=== PATIENT | female | born 1960 | race Caucasian/White ===

== ENCOUNTER → 2017-09-23 11:17 | Outpatient (CLI) | payer OTHER, SELFPAY ==
[2017-09-26 14:04] LABS: Rubeola Measles IgG < 25.00 AU/mL (< 25.00)
== END ==
PROVIDERS: PCP Family Medicine; Visit Provider Family Medicine
DX: Z01.84 Encounter for antibody response examination (principal)
CPT/HCPCS: 36415; 86735; 86762; 86765

== ENCOUNTER → 2018-01-25 10:47 | Outpatient (CLI) | payer OTHER, SELFPAY ==
--- NOTE | 2018-01-25 | DI.MG.S_ITS ---
BILATERAL DIGITAL SCREENING MAMMOGRAM 3D/2D WITH CAD: 01/25/2018 CLINICAL: Routine screening. Family history of breast cancer. Comparison is made to exams dated: 07/30/2012 mammogram, 08/26/2010 mammogram, and 07/08/2008 mammogram - [facility]. There are scattered fibroglandular elements in both breasts. Current study was also evaluated with a Computer Aided Detection (CAD) system. No significant masses, calcifications, or other findings are seen in either breast. There has been no significant interval change. IMPRESSION: NEGATIVE There is no mammographic evidence of malignancy. A 1 year screening mammogram is recommended. This exam was interpreted at Station ID: [id number]. NOTE: For mammograms, a report in lay terms will be sent to the patient. Approximately 15% of breast malignancies will not be visualized mammographically. In the management of a palpable breast mass, a negative mammogram must not discourage biopsy of a clinically suspicious lesion. Electronically Signed By: Rigoberto cespedes/silvano:01/26/2018 11:45:51 letter sent: Normal Exam ACR BI-RADS Category 1: Negative 3341F
== END ==
PROVIDERS: PCP Family Medicine; Visit Provider Family Medicine
DX: Z12.31 Encounter for screening mammogram for malignant neoplasm of breast (principal); Z80.3 Family history of malignant neoplasm of breast
CPT/HCPCS: 77063; 77067

== ENCOUNTER → 2018-05-08 08:21 | Outpatient (CLI) | payer OTHER, SELFPAY ==
[2018-05-08 09:40] LABS: Cholesterol 233 mg/dL (140-199); HDL Cholesterol 59 mg/dL (40-60); LDL Cholesterol Calculated 156 mg/dL (<100); Triglycerides 91 mg/dL (35-150)
== END ==
PROVIDERS: PCP Family Medicine; Visit Provider Family Medicine
DX: Z86.39 Personal history of other endocrine, nutritional and metabolic disease (principal)
CPT/HCPCS: 36415; 80061

== ENCOUNTER → 2018-09-12 11:24 | Outpatient (CLI) | payer OTHER, SELFPAY ==
--- NOTE | 2018-09-12 11:25 | DI.RAD.S_ITS ---
PROCEDURE: XR LUMBAR SPINE 2-3V INDICATIONS: Low back pain TECHNIQUE: 3 views of the lumbar spine were acquired. COMPARISON: None. FINDINGS: Bones: 5 [id number] vertebrae are present. There is normal bony alignment. No vertebral body compression fractures. No suspicious bony lesions. Soft tissues: Overlying bowel gas pattern is normal. No suspicious soft tissue calcifications. 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 No fracture or subluxation is found. Dictated by: John Cadena M.D. on 09/12/2018 at 12:15 Approved by: John Cadena M.D. on 09/12/2018 at 12:15
== END ==
PROVIDERS: PCP Family Medicine; Visit Provider Family Medicine
DX: M54.5 Low back pain (principal); M51.17 Intervertebral disc disorders with radiculopathy, lumbosacral region; M47.27 Other spondylosis with radiculopathy, lumbosacral region
CPT/HCPCS: 72100

== ENCOUNTER → 2019-02-28 17:57 | Outpatient (CLI) | payer OTHER, SELFPAY ==
--- NOTE | 2019-02-28 | DI.MG.S_ITS ---
BILATERAL DIGITAL SCREENING MAMMOGRAM 3D/2D WITH CAD: 02/28/2019 CLINICAL: Routine screening. Family history of breast cancer. Comparison is made to exams dated: 01/25/2018 mammogram - [facility] and 07/30/2012 mammogram - [facility]. There are scattered fibroglandular elements in both breasts. Current study was also evaluated with a Computer Aided Detection (CAD) system. No significant masses, calcifications, or other findings are seen in either breast. There has been no significant interval change. IMPRESSION: NEGATIVE There is no mammographic evidence of malignancy. A 1 year screening mammogram is recommended. This exam was interpreted at Station ID: [id number]. NOTE: For mammograms, a report in lay terms will be sent to the patient. Approximately 15% of breast malignancies will not be visualized mammographically. In the management of a palpable breast mass, a negative mammogram must not discourage biopsy of a clinically suspicious lesion. Electronically Signed By: Wei Camacho M.D. [facility]/silvano:02/28/2019 19:15:02 letter sent: Normal Exam ACR BI-RADS Category 1: Negative [id number]
== END ==
PROVIDERS: PCP Family Medicine; Visit Provider Family Medicine
DX: Z12.31 Encounter for screening mammogram for malignant neoplasm of breast (principal); Z80.3 Family history of malignant neoplasm of breast
CPT/HCPCS: 77063; 77067

== ENCOUNTER 2019-04-11 17:30 | Outpatient (RCR) | payer OTHER, SELFPAY ==
--- NOTE | 2019-03-20 19:20 | PT.OIE ---
Current Diagnoses Other muscle spasm (03/20/19) Pain in right hand (03/20/19) Past Medical History (Last Reviewed 01/24/19 @ 13:40 by BLAKE Craig) Ankle pain (Resolved 2009) Anxiety (Chronic ~2009) Chicken pox (Resolved 1968) Distal radius fracture, left (Resolved 2016) Migraines (Chronic 1985) Pure hypercholesterolemia (Chronic) Past Surgical History (Last Reviewed 01/24/19 @ 13:40 by BLAKE Craig) History of ankle surgery (Resolved ~01/2010) History of endometrial ablation (Resolved 2006) History of orthopedic surgery (Resolved 2016) Visit Care Team Role Provider Type Olivia Borjas MD Attending Provider Physician Family Provider Primary Care Provider Referring Provider Specialty: Family Practice Address: [address] [place] [address], [facility] Email: [email or web address] Physical Therapy Initial Evaluation PT-OP-A Visit Information Start: 03/20/19 18:35 Freq: Status: Active Protocol: Document 03/20/19 17:35 HH (Rec: 03/20/19 19:18 [email or web address]) Out-Patient Physical Therapy Visit Information Visit Information Visit Type Initial Evaluation Visit Start Time 17:35 Visit Stop Time 18:20 Total Visit Minutes 45 Visit Number 1/60 Number of OFFSHORE WIND OPERATIONS MANAGER Visits 0 Evaluation Information Evaluation Date 03/20/19 PT-OP-B Current Condition Start: 03/20/19 18:35 Freq: Status: Active Protocol: Document 03/20/19 17:35 HH (Rec: 03/20/19 19:18 [email or web address]) Current Condition History of Current Condition Onset Date Mid January, Current Complaints R neck pain, difficulty with rotation, shooting pain at R hand History of Current Condition Pt is a 58 yo female presented to clinic with new onset of R neck pain since January,. She reports she developed sharp pain on the R side of the neck while working but does not know why it started. Pt then had difficulty turning her head immediately and she had to go walk in clinic the next day who was prescribed with muscle relaxant Cyclobenzaprine. Pt stated she is currently 80% better but still has pain during R head turn and sidebend to left, along with tension headache on the right side. She also has shooting pain at distal ulnar during ulnar deviation such as opening a jar and holding her carmera. She c/o her technical adjuster strength has decreased recently as well. She did say lying flat tends to feel better. Treatment Goals Patient/Caregiver Goals 1. To be pain free for head turns and sidebending 2. 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 PT-OP-C Subjective Start: 03/20/19 18:35 Freq: Status: Active Protocol: Document 03/20/19 17:35 HH (Rec: 03/20/19 19:18 HH [email or web address]) OP-PT Subjective Patient Comments Patient Comments This neck pain is very annoying to me Patient Questionnaires Neck Disability Index NDI Score 15 Neck Disability Index Impairment 20 to 39% Impaired (Score 10- 19) Quick Dash- Upper Extremity Quick Dash UE Score 31.8 Quick Dash UE Impairment 20 to 39% Impaired (Score 20- 39) OP-PT Pain Assessment Location R distal ulnar region Intensity 4 Scale Used Numeric (1 - 10) Description Shooting Frequency Frequent Pain Aggravating Factors Changing Position,Activity, Exercise Pain Alleviating Factors Lying Supine R neck Intensity 6 Scale Used Numeric (1 - 10) Description Aching,Sharp,Shooting Frequency Frequent Pain Aggravating Factors Changing Position,Activity, Exercise Pain Alleviating Factors Lying Supine PT-OP-F Manual Assessment Start: 03/20/19 18:35 Freq: Status: Active Protocol: Document 03/20/19 17:35 HH (Rec: 03/20/19 19:18 HH [email or web address]) Manual Assessments Soft Tissue Assessment Soft Tissue Mobility Assessment Radiating pain to R shoulder with pressure to distal upper trap. PT-OP-H Neuro Start: 03/20/19 18:35 Freq: Status: Active Protocol: Document 03/20/19 17:35 HH (Rec: 03/20/19 19:18 HH [email or web address]) Deep Tendon Reflex & Clonus Assessment Deep Tendon Reflex Bilateral Brachioradialis Deep Tendon Reflex 2+ Normal Bilateral Bicep Deep Tendon Reflex 2+ Normal Bilateral Tricep Deep Tendon Reflex 2+ Normal PT-OP-J Posture/Palpation/Skin Start: 03/20/19 18:35 Freq: Status: Active Protocol: Document 03/20/19 17:35 HH (Rec: 03/20/19 19:18 HH [email or web address]) Posture Evaluation Position Standing Evaluation View Posterior Head/C-Spine Posture Rotated Left,Forward Head T-Spine Posture Fixed Scoliosis on (L) Shoulder Posture (R) Rounded,(L) Elevated PT-OP-K Range of Motion Start: 03/20/19 18:35 Freq: Status: Active Protocol: Document 03/20/19 17:35 HH (Rec: 03/20/19 19:19 [email or web address]) Cervical Spine Range of Motion Cervical Spine Active Degrees Testing Position Sitting Flexion 58 Extension 48 Rotation Left 45 Rotation Right 47 Lateral Flexion Left 30 Lateral Flexion Right 28 ROM Limitations Pain Comments Pain increased R rotation > L rotation, L sidebending > R sidebending pinching sensation with cervical extension. PT-OP-L Special Tests Start: 03/20/19 18:35 Freq: Status: Active Protocol: Document 03/20/19 17:35 HH (Rec: 03/20/19 19:18 [email or web address]) Special Tests Cervical Spine Special Tests supported shoulders with cervical rotation Test Results +VE B Comments pain reduced during rotation with B shoulders support. Traction Test Results +ve Comments seated traction Upper Limb Tension Test Test Results +ve R UE Comments for median and ulnar nerve Spurling's Test Test Results -ve B Lumbar Spine Special Tests Standing Flexion Test Results no pain Comments significant L mid thoracic scoliosis Shoulder Special Tests Adson Test Results -ve B HARPREET Test Results +VE R Comments numbness reproduced after 1 min PT-OP-M Strength Start: 03/20/19 18:35 Freq: Status: Active Protocol: Document 03/20/19 17:35 HH (Rec: 03/20/19 19:18 [email or web address]) Shoulder Strength Shoulder Manual Muscle Testing Left Flexion 4 Good Extension 4 Good Abduction (C5) 4- Good- Adduction 4 Good Right Flexion 4 Good Extension 4 Good Abduction (C5) 4- Good- Adduction 4 Good Elbow/Forearm Strength Elbow and Forearm Manual Muscle Testing Right Flexion (C6) 4+ Good+ Extension (C7) 4+ Good+ Left Flexion (C6) 4+ Good+ Extension (C7) 4+ Good+ Wrist Strength Wrist Manual Muscle Testing Right Flexion (C7) 4+ Good+ Extension (C6) 4+ Good+ Ulnar Deviation 4+ Good+ Radial Deviation 4+ Good+ Left Flexion (C7) 4+ Good+ Extension (C6) 4+ Good+ Ulnar Deviation 4+ Good+ Radial Deviation 4+ Good+ Hand Administrative Coordinator/Pinch Strength Hand Dominance Hand Dominance Right Hand Strength Left Administrative Coordinator (lbs) 12 Comments kilogram Right Administrative Coordinator (lbs) 20 Comments kilogram PT-OP-T Assessment and Plan Start: 03/20/19 18:35 Freq: Status: Active Protocol: Document 03/20/19 17:35 (Rec: 03/20/19 19:18 [email or web address]) Physical Therapy Assessment Rehab Potential Rehabilitation Potential Excellent Evaluation Complexity Number of Personal Factors/Comorbidities 1-2 Number of Body Systems Impaired 1-2 Clinical Presentation at Evaluation Stable Impairments Impairments Activity Tolerance,Balance, Functional Activities, Functional Mobility,Pain, Posture,ROM,Soft Tissue Mobility,Strength Goals Administrative Coordinator strength Impairment R technical adjuster strength = 20kG Short Term Goal (STG) Pt will improve her R technical adjuster strength to 23KG in all 3 attempts STG Duration 5 weeks Prison Goal (LTG) Pt will improve her R technical adjuster strength to 25KG in all 3 attempts for opening jars without difficulty. LTG Duration 10 weeks pain Impairment R Neck pain at 6 at all times Short Term Goal (STG) pt will be able to move her c/ s with pain no more than 4/10 STG Duration 5 weeks Technical Support Professional Goal (LTG) pt will be able to move her c/ s without any pain, along with reduced shooting pain to her R distal ulnar area during work and driving. LTG Duration 10 weeks ROM Impairment pt has limited c/s rotation and lateral flexion Short Term Goal (STG) Pt will improve her C/S ROM grossly by 10 degrees. STG Duration 5 weeks Prison Goal (LTG) Pt will improve her C/S ROM grossly by 15 degrees so she could turn her head while driving. LTG Duration 10 weeks quickdash and NDI Impairment pt scores both at 20-39% impairment Short Term Goal (STG) Pt will score both questionnaire < 20 % to improve her quality of life. STG Duration 5 weeks Prison Goal (LTG) Pt will score both questionnaire < 10 % to improve her quality of life. LTG Duration 10 weeks Assessment Summary Assessment Pt is a 58 yo presented to clinic with ongoing R neck pain since January. Pt presents significant ROM loss and noticeable RUE strength loss as well. Pt's neck pain was reproduced with pressure at C2-C4, R distal trapezius, R cervical rotation, L cervical lateral flexion. She was positive for cervical compression test, HARPREET test , cervical traction, UTTT ( median and ulnar) which indicate pt has a combination of cervical strain and unilateral cervical radiculopathy. Pt also has significant R mid thoracic scoliosis which creates compression stress on her R side of the body. Pt will benefit from skilled therapy to address aforementioned impairments in order to complete her functional tasks (driving, working, opening jar ..etc) in pain free. Physical Therapy Plan Frequency and Duration Frequency of Treatment 2x/Week Duration of Treatment 10 weeks Plan of Care Start Date 03/20/19 Plan of Care End Date 06/03/19 Therapeutic Interventions Therapeutic Interventions Home Exercise Program,Joint Mobilizations,Manual Therapy, Neuromuscular Re-education, Patient/Caregiver Education, Self-Care/Home Management,Soft Tissue Mobilization,Taping, Therapeutic Activities, Therapeutic Exercises Modalities Cold Pack/Ice Massage,Electric Stimulation,Hot Packs, Infrared Therapy,Iontophoresis ,Paraffin Bath,Traction- Mechanical,Ultrasound Next Visit Focus/Plan Next Note Type Treatment Note Next Visit Plan manual therapy to relax r levator, trap, suboccipital reassess pt scoliosis Start post isometric relaxation. seated cervical rotation with supported arm
--- NOTE | 2019-03-20 19:20 | PT.OPPOC ---
Physical, Occupational & Speech Therapy At [facility] Current Diagnoses Other muscle spasm (03/20/19) Pain in right hand (03/20/19) Visit Care Team Role Provider Type Olivia Borjas MD Attending Provider Physician Family Provider Primary Care Provider Referring Provider Specialty: Family Practice Address: [address] [place] [address], [id number] Email: [email or web address] Plan Of Care PT-OP-T Assessment and Plan Start: 03/20/19 18:35 Freq: Status: Active Protocol: Document 03/20/19 17:35 HH (Rec: 03/20/19 19:18 HH [email or web address]) Physical Therapy Assessment Rehab Potential Rehabilitation Potential Excellent Evaluation Complexity Number of Personal Factors/Comorbidities 1-2 Number of Body Systems Impaired 1-2 Clinical Presentation at Evaluation Stable Impairments Impairments Activity Tolerance,Balance, Functional Activities, Functional Mobility,Pain, Posture,ROM,Soft Tissue Mobility,Strength Goals Roof Truss Machine Tender strength Impairment R geography faculty member strength = 20kG Short Term Goal (STG) Pt will improve her R geography faculty member strength to 23KG in all 3 attempts STG Duration 5 weeks Half-Way Goal (LTG) Pt will improve her R geography faculty member strength to 25KG in all 3 attempts for opening jars without difficulty. LTG Duration 10 weeks pain Impairment R Neck pain at 6 at all times Short Term Goal (STG) pt will be able to move her c/ s with pain no more than 4/10 STG Duration 5 weeks Car Shunter Goal (LTG) pt will be able to move her c/ s without any pain, along with reduced shooting pain to her R distal ulnar area during work and driving. LTG Duration 10 weeks ROM Impairment pt has limited c/s rotation and lateral flexion Short Term Goal (STG) Pt will improve her C/S ROM grossly by 10 degrees. STG Duration 5 weeks Half-Way Goal (LTG) Pt will improve her C/S ROM grossly by 15 degrees so she could turn her head while driving. LTG Duration 10 weeks quickdash and NDI Impairment pt scores both at 20-39% impairment Short Term Goal (STG) Pt will score both questionnaire < 20 % to improve her quality of life. STG Duration 5 weeks Half-Way Goal (LTG) Pt will score both questionnaire < 10 % to improve her quality of life. LTG Duration 10 weeks Assessment Summary Assessment Pt is a 58 yo presented to clinic with ongoing R neck pain since January. Pt presents significant ROM loss and noticeable RUE strength loss as well. Pt's neck pain was reproduced with pressure at C2-C4, R distal trapezius, R cervical rotation, L cervical lateral flexion. She was positive for cervical compression test, HARPREET test , cervical traction, UTTT ( median and ulnar) which indicate pt has a combination of cervical strain and unilateral cervical radiculopathy. Pt also has significant R mid thoracic scoliosis which creates compression stress on her R side of the body. Pt will benefit from skilled therapy to address aforementioned impairments in order to complete her functional tasks (driving, working, opening jar ..etc) in pain free. Physical Therapy Plan Frequency and Duration Frequency of Treatment 2x/Week Duration of Treatment 10 weeks Plan of Care Start Date 03/20/19 Plan of Care End Date 06/03/19 Therapeutic Interventions Therapeutic Interventions Home Exercise Program,Joint Mobilizations,Manual Therapy, Neuromuscular Re-education, Patient/Caregiver Education, Self-Care/Home Management,Soft Tissue Mobilization,Taping, Therapeutic Activities, Therapeutic Exercises Modalities Cold Pack/Ice Massage,Electric Stimulation,Hot Packs, Infrared Therapy,Iontophoresis ,Paraffin Bath,Traction- Mechanical,Ultrasound Next Visit Focus/Plan Next Note Type Treatment Note Next Visit Plan manual therapy to relax r levator, trap, suboccipital reassess pt scoliosis Start post isometric relaxation. seated cervical rotation with supported arm Plan of Care Dates Plan of Care Start Date 03/20/19 Plan of Care End Date 06/03/19 Electronically Signed by: Jeremiah Saucedo PT 03/20/19 1920 Please Sign and Return: I have reviewed this Plan of Care and certify that the skilled therapy services above are required to meet the patient?s needs. Physician Signature Date Printed Name and Credentials Clinical Instructor Signature Printed Name and Credentials
--- NOTE | 2019-04-02 19:30 | PT.OTN ---
Current Diagnoses Other muscle spasm (04/02/19) Pain in right hand (04/02/19) Physical Therapy Treatment Note PT-OP-A Visit Information Start: 03/20/19 18:35 Freq: Status: Active Protocol: Document 04/02/19 19:16 HH (Rec: 04/02/19 19:30 [email or web address]) Out-Patient Physical Therapy Visit Information Visit Information Visit Type Treatment Note Visit Start Time 17:35 Visit Stop Time 18:16 Total Visit Minutes 41 Visit Number 2/60 Number of TELEVISION EQUIPMENT OPERATOR Visits 0 PT-OP-B Current Condition Start: 03/20/19 18:35 Freq: Status: Active Protocol: Document 03/20/19 17:35 HH (Rec: 03/20/19 19:18 HH [email or web address]) Current Condition History of Current Condition Onset Date Mid January, Current Complaints R neck pain, difficulty with rotation, shooting pain at R hand History of Current Condition Pt is a 58 yo female presented to clinic with new onset of R neck pain since January,. She reports she developed sharp pain on the R side of the neck while working but does not know why it started. Pt then had difficulty turning her head immediately and she had to go walk in clinic the next day who was prescribed with muscle relaxant Cyclobenzaprine. Pt stated she is currently 80% better but still has pain during R head turn and sidebend to left, along with tension headache on the right side. She also has shooting pain at distal ulnar during ulnar deviation such as opening a jar and holding her carmera. She c/o her lot porter strength has decreased recently as well. She did say lying flat tends to feel better. Treatment Goals Patient/Caregiver Goals 1. To be pain free for head turns and sidebending 2. 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 PT-OP-C Subjective Start: 03/20/19 18:35 Freq: Status: Active Protocol: Document 04/02/19 19:16 HH (Rec: 04/02/19 19:30 HH [email or web address]) OP-PT Subjective Patient Comments Patient Comments galina been doing better and able to sleep better. Patient Reported Progress Improving PT-OP-F Manual Assessment Start: 03/20/19 18:35 Freq: Status: Active Protocol: Document 03/20/19 17:35 HH (Rec: 03/20/19 19:18 HH [email or web address]) Manual Assessments Soft Tissue Assessment Soft Tissue Mobility Assessment Radiating pain to R shoulder with pressure to distal upper trap. PT-OP-H Neuro Start: 03/20/19 18:35 Freq: Status: Active Protocol: Document 03/20/19 17:35 HH (Rec: 03/20/19 19:18 HH [email or web address]) Deep Tendon Reflex & Clonus Assessment Deep Tendon Reflex Bilateral Brachioradialis Deep Tendon Reflex 2+ Normal Bilateral Bicep Deep Tendon Reflex 2+ Normal Bilateral Tricep Deep Tendon Reflex 2+ Normal PT-OP-J Posture/Palpation/Skin Start: 03/20/19 18:35 Freq: Status: Active Protocol: Document 03/20/19 17:35 HH (Rec: 03/20/19 19:18 HH [email or web address]) Posture Evaluation Position Standing Evaluation View Posterior Head/C-Spine Posture Rotated Left,Forward Head T-Spine Posture Fixed Scoliosis on (L) Shoulder Posture (R) Rounded,(L) Elevated PT-OP-K Range of Motion Start: 03/20/19 18:35 Freq: Status: Active Protocol: Document 03/20/19 17:35 HH (Rec: 03/20/19 19:19 HH [email or web address]) Cervical Spine Range of Motion Cervical Spine Active Degrees Testing Position Sitting Flexion 58 Extension 48 Rotation Left 45 Rotation Right 47 Lateral Flexion Left 30 Lateral Flexion Right 28 ROM Limitations Pain Comments Pain increased R rotation > L rotation, L sidebending > R sidebending pinching sensation with cervical extension. PT-OP-L Special Tests Start: 03/20/19 18:35 Freq: Status: Active Protocol: Document 03/20/19 17:35 HH (Rec: 03/20/19 19:18 HH [email or web address]) Special Tests Cervical Spine Special Tests supported shoulders with cervical rotation Test Results +VE B Comments pain reduced during rotation with B shoulders support. Traction Test Results +ve Comments seated traction Upper Limb Tension Test Test Results +ve R UE Comments for median and ulnar nerve Spurling's Test Test Results -ve B Lumbar Spine Special Tests Standing Flexion Test Results no pain Comments significant L mid thoracic scoliosis Shoulder Special Tests Adson Test Results -ve B HARPREET Test Results +VE R Comments numbness reproduced after 1 min PT-OP-M Strength Start: 03/20/19 18:35 Freq: Status: Active Protocol: Document 03/20/19 17:35 (Rec: 03/20/19 19:18 [email or web address]) Shoulder Strength Shoulder Manual Muscle Testing Left Flexion 4 Good Extension 4 Good Abduction (C5) 4- Good- Adduction 4 Good Right Flexion 4 Good Extension 4 Good Abduction (C5) 4- Good- Adduction 4 Good Elbow/Forearm Strength Elbow and Forearm Manual Muscle Testing Right Flexion (C6) 4+ Good+ Extension (C7) 4+ Good+ Left Flexion (C6) 4+ Good+ Extension (C7) 4+ Good+ Wrist Strength Wrist Manual Muscle Testing Right Flexion (C7) 4+ Good+ Extension (C6) 4+ Good+ Ulnar Deviation 4+ Good+ Radial Deviation 4+ Good+ Left Flexion (C7) 4+ Good+ Extension (C6) 4+ Good+ Ulnar Deviation 4+ Good+ Radial Deviation 4+ Good+ Hand Outpatient Surgery Rn/Pinch Strength Hand Dominance Hand Dominance Right Hand Strength Left Outpatient Surgery Rn (lbs) 12 Comments kilogram Right Outpatient Surgery Rn (lbs) 20 Comments kilogram PT-OP-Q Treatments Start: 03/20/19 18:35 Freq: Status: Active Protocol: Document 04/02/19 19:16 (Rec: 04/02/19 19:30 [email or web address]) Therapeutic Exercises Supine Exercises tennis ball release Side bilateral Equipment Used tennis balls (peanut shape) Comments self massage at home Sitting Exercises levator scap stretch Side right Reps/Minutes 30 secs hold x4 Comments self stretch at home chin tuck Side bilateral Reps/Minutes 2 mins Comments cues to prevent trunk movements Manual Therapy Treatment Soft Tissue Mobilization levator scap Body Location R Mobilization Type Sustained Pressure,Trigger Point Release Intensity/Depth Moderate Body Position Supine Comments f/b post isometric relaxation 10 sec hold x5 c/s paraspinals Body Location R >L Mobilization Type Sustained Pressure,Trigger Point Release Intensity/Depth Moderate Body Position Supine suboccipital Body Location bilateral Mobilization Type Sustained Pressure,Trigger Point Release Intensity/Depth Moderate Body Position Supine Manual Traction c/s traction Body Position Supine Reps/Duration 10 secs hold x 8 PT-OP-T Assessment and Plan Start: 03/20/19 18:35 Freq: Status: Active Protocol: Document 04/02/19 19:16 (Rec: 04/02/19 19:30 [email or web address]) Physical Therapy Assessment Goals Outpatient Surgery Rn strength Impairment R lot porter strength = 20kG Short Term Goal (STG) Pt will improve her R lot porter strength to 23KG in all 3 attempts STG Duration 5 weeks Nursing Home Goal (LTG) Pt will improve her R lot porter strength to 25KG in all 3 attempts for opening jars without difficulty. LTG Duration 10 weeks pain Impairment R Neck pain at 6 at all times Short Term Goal (STG) pt will be able to move her c/ s with pain no more than 4/10 STG Duration 5 weeks Nursing Home Goal (LTG) pt will be able to move her c/ s without any pain, along with reduced shooting pain to her R distal ulnar area during work and driving. LTG Duration 10 weeks ROM Impairment pt has limited c/s rotation and lateral flexion Short Term Goal (STG) Pt will improve her C/S ROM grossly by 10 degrees. STG Duration 5 weeks Fixed Assets Accountant Goal (LTG) Pt will improve her C/S ROM grossly by 15 degrees so she could turn her head while driving. LTG Duration 10 weeks quickdash and NDI Impairment pt scores both at 20-39% impairment Short Term Goal (STG) Pt will score both questionnaire < 20 % to improve her quality of life. STG Duration 5 weeks Fixed Assets Accountant Goal (LTG) Pt will score both questionnaire < 10 % to improve her quality of life. LTG Duration 10 weeks Assessment Summary Assessment tx focused on manual therapy to reduce pain sensitivity at R trap and R suboccipital msucle group. pt lana tx well w /o discomfort. Added chin tuck , tennis ball release and levator scap stretch. Physical Therapy Plan Next Visit Focus/Plan Next Note Type Treatment Note Next Visit Plan manual therapy to relax r levator, trap, suboccipital reassess pt scoliosis Start post isometric relaxation. seated cervical rotation with supported arm
--- NOTE | 2019-04-04 18:23 | PT.OTN ---
Current Diagnoses Other muscle spasm (04/04/19) Pain in right hand (04/04/19) Physical Therapy Treatment Note PT-OP-A Visit Information Start: 03/20/19 18:35 Freq: Status: Active Protocol: Document 04/04/19 17:34 HH (Rec: 04/04/19 18:23 [id number]) Out-Patient Physical Therapy Visit Information Visit Information Visit Type Treatment Note Visit Start Time 17:34 Visit Stop Time 18:15 Total Visit Minutes 41 Visit Number 3/60 Number of PRESIDENT CELEBRITY ACQUISTION Visits 0 PT-OP-B Current Condition Start: 03/20/19 18:35 Freq: Status: Active Protocol: Document 03/20/19 17:35 HH (Rec: 03/20/19 19:18 [email or web address]) Current Condition History of Current Condition Onset Date Mid January, Current Complaints R neck pain, difficulty with rotation, shooting pain at R hand History of Current Condition Pt is a 58 yo female presented to clinic with new onset of R neck pain since January,. She reports she developed sharp pain on the R side of the neck while working but does not know why it started. Pt then had difficulty turning her head immediately and she had to go walk in clinic the next day who was prescribed with muscle relaxant Cyclobenzaprine. Pt stated she is currently 80% better but still has pain during R head turn and sidebend to left, along with tension headache on the right side. She also has shooting pain at distal ulnar during ulnar deviation such as opening a jar and holding her carmera. 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 She did say lying flat tends to feel better. Treatment Goals Patient/Caregiver Goals 1. To be pain free for head turns and sidebending 2. 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 PT-OP-C Subjective Start: 03/20/19 18:35 Freq: Status: Active Protocol: Document 04/04/19 17:34 HH (Rec: 04/04/19 18:23 [id number]) OP-PT Subjective Patient Comments Patient Comments I feel sore after last time and but i was able to recover. I did feel a little bit pins and needles early this morning but it went away. Patient Reported Progress Same PT-OP-F Manual Assessment Start: 03/20/19 18:35 Freq: Status: Active Protocol: Document 03/20/19 17:35 HH (Rec: 03/20/19 19:18 [email or web address]) Manual Assessments Soft Tissue Assessment Soft Tissue Mobility Assessment Radiating pain to R shoulder with pressure to distal upper trap. PT-OP-H Neuro Start: 03/20/19 18:35 Freq: Status: Active Protocol: Document 03/20/19 17:35 HH (Rec: 03/20/19 19:18 [email or web address]) Deep Tendon Reflex & Clonus Assessment Deep Tendon Reflex Bilateral Brachioradialis Deep Tendon Reflex 2+ Normal Bilateral Bicep Deep Tendon Reflex 2+ Normal Bilateral Tricep Deep Tendon Reflex 2+ Normal PT-OP-J Posture/Palpation/Skin Start: 03/20/19 18:35 Freq: Status: Active Protocol: Document 03/20/19 17:35 HH (Rec: 03/20/19 19:18 [email or web address]) Posture Evaluation Position Standing Evaluation View Posterior Head/C-Spine Posture Rotated Left,Forward Head T-Spine Posture Fixed Scoliosis on (L) Shoulder Posture (R) Rounded,(L) Elevated PT-OP-K Range of Motion Start: 03/20/19 18:35 Freq: Status: Active Protocol: Document 03/20/19 17:35 HH (Rec: 03/20/19 19:19 HH [email or web address]) Cervical Spine Range of Motion Cervical Spine Active Degrees Testing Position Sitting Flexion 58 Extension 48 Rotation Left 45 Rotation Right 47 Lateral Flexion Left 30 Lateral Flexion Right 28 ROM Limitations Pain Comments Pain increased R rotation > L rotation, L sidebending > R sidebending pinching sensation with cervical extension. PT-OP-L Special Tests Start: 03/20/19 18:35 Freq: Status: Active Protocol: Document 03/20/19 17:35 HH (Rec: 03/20/19 19:18 HH [email or web address]) Special Tests Cervical Spine Special Tests supported shoulders with cervical rotation Test Results +VE B Comments pain reduced during rotation with B shoulders support. Traction Test Results +ve Comments seated traction Upper Limb Tension Test Test Results +ve R UE Comments for median and ulnar nerve Spurling's Test Test Results -ve B Lumbar Spine Special Tests Standing Flexion Test Results no pain Comments significant L mid thoracic scoliosis Shoulder Special Tests Adson Test Results -ve B HARPREET Test Results +VE R Comments numbness reproduced after 1 min PT-OP-M Strength Start: 03/20/19 18:35 Freq: Status: Active Protocol: Document 03/20/19 17:35 (Rec: 03/20/19 19:18 HH [email or web address]) Shoulder Strength Shoulder Manual Muscle Testing Left Flexion 4 Good Extension 4 Good Abduction (C5) 4- Good- Adduction 4 Good Right Flexion 4 Good Extension 4 Good Abduction (C5) 4- Good- Adduction 4 Good Elbow/Forearm Strength Elbow and Forearm Manual Muscle Testing Right Flexion (C6) 4+ Good+ Extension (C7) 4+ Good+ Left Flexion (C6) 4+ Good+ Extension (C7) 4+ Good+ Wrist Strength Wrist Manual Muscle Testing Right Flexion (C7) 4+ Good+ Extension (C6) 4+ Good+ Ulnar Deviation 4+ Good+ Radial Deviation 4+ Good+ Left Flexion (C7) 4+ Good+ Extension (C6) 4+ Good+ Ulnar Deviation 4+ Good+ Radial Deviation 4+ Good+ Hand Mine Inspector Federal/Pinch Strength Hand Dominance Hand Dominance Right Hand Strength Left Mine Inspector Federal (lbs) 12 Comments kilogram Right Mine Inspector Federal (lbs) 20 Comments kilogram PT-OP-Q Treatments Start: 03/20/19 18:35 Freq: Status: Active Protocol: Document 04/04/19 17:34 (Rec: 04/04/19 18:23 HH [id number]) Therapeutic Exercises Sitting Exercises levator scap stretch Side right Reps/Minutes 30 secs hold x4 Comments self stretch at home chin tuck Side bilateral Reps/Minutes 2 mins Comments cues to prevent trunk movements Standing Exercises nerve glide Standing Exercise Name median and ulnar Side right Reps/Minutes 5 x 2 Manual Therapy Treatment Soft Tissue Mobilization levator scap Body Location R Mobilization Type Sustained Pressure,Trigger Point Release Intensity/Depth Moderate Body Position Supine Comments f/b post isometric relaxation 10 sec hold x5 c/s paraspinals Body Location R >L Mobilization Type Sustained Pressure,Trigger Point Release Intensity/Depth Moderate Body Position Supine Comments followed by IASTM suboccipital Body Location bilateral Mobilization Type Sustained Pressure,Trigger Point Release Intensity/Depth Moderate Body Position Supine Manual Traction c/s traction Body Position Supine Reps/Duration 10 secs hold x 8 PT-OP-T Assessment and Plan Start: 03/20/19 18:35 Freq: Status: Active Protocol: Document 04/04/19 17:34 (Rec: 04/04/19 18:23 [id number]) Physical Therapy Assessment Goals Mine Inspector Federal strength Impairment R bar and filler assembler strength = 20kG Short Term Goal (STG) Pt will improve her R bar and filler assembler strength to 23KG in all 3 attempts STG Duration 5 weeks Skilled Nursing Goal (LTG) Pt will improve her R bar and filler assembler strength to 25KG in all 3 attempts for opening jars without difficulty. LTG Duration 10 weeks pain Impairment R Neck pain at 6 at all times Short Term Goal (STG) pt will be able to move her c/ s with pain no more than 4/10 STG Duration 5 weeks Sales Service Promoter Goal (LTG) pt will be able to move her c/ s without any pain, along with reduced shooting pain to her R distal ulnar area during work and driving. LTG Duration 10 weeks ROM Impairment pt has limited c/s rotation and lateral flexion Short Term Goal (STG) Pt will improve her C/S ROM grossly by 10 degrees. STG Duration 5 weeks Skilled Nursing Goal (LTG) Pt will improve her C/S ROM grossly by 15 degrees so she could turn her head while driving. LTG Duration 10 weeks quickdash and NDI Impairment pt scores both at 20-39% impairment Short Term Goal (STG) Pt will score both questionnaire < 20 % to improve her quality of life. STG Duration 5 weeks Skilled Nursing Goal (LTG) Pt will score both questionnaire < 10 % to improve her quality of life. LTG Duration 10 weeks Assessment Summary Assessment Tx focused on manual therapy. Pt responded well but noticed limitation at OA mobility. Added median and ulnar nerve glide for HEP Physical Therapy Plan Next Visit Focus/Plan Next Note Type Treatment Note Next Visit Plan manual therapy to relax r levator, trap, suboccipital reassess pt scoliosis Start post isometric relaxation. seated cervical rotation with supported arm
--- NOTE | 2019-04-11 18:25 | PT.OTN ---
Current Diagnoses Other muscle spasm (04/11/19) Pain in right hand (04/11/19) Physical Therapy Treatment Note PT-OP-A Visit Information Start: 03/20/19 18:35 Freq: Status: Active Protocol: Document 04/11/19 17:32 HH (Rec: 04/11/19 18:25 [id number]) Out-Patient Physical Therapy Visit Information Visit Information Visit Type Treatment Note Visit Start Time 17:32 Visit Stop Time 18:15 Total Visit Minutes 43 Visit Number 4/60 Number of CONSTRUCTION INSPECTOR Visits 0 PT-OP-B Current Condition Start: 03/20/19 18:35 Freq: Status: Active Protocol: Document 03/20/19 17:35 HH (Rec: 03/20/19 19:18 HH [email or web address]) Current Condition History of Current Condition Onset Date Mid January, Current Complaints R neck pain, difficulty with rotation, shooting pain at R hand History of Current Condition Pt is a 58 yo female presented to clinic with new onset of R neck pain since January,. She reports she developed sharp pain on the R side of the neck while working but does not know why it started. Pt then had difficulty turning her head immediately and she had to go walk in clinic the next day who was prescribed with muscle relaxant Cyclobenzaprine. Pt stated she is currently 80% better but still has pain during R head turn and sidebend to left, along with tension headache on the right side. She also has shooting pain at distal ulnar during ulnar deviation such as opening a jar and holding her carmera. 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 She did say lying flat tends to feel better. Treatment Goals Patient/Caregiver Goals 1. To be pain free for head turns and sidebending 2. 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 PT-OP-C Subjective Start: 03/20/19 18:35 Freq: Status: Active Protocol: Document 04/11/19 17:32 HH (Rec: 04/11/19 18:25 [id number]) OP-PT Subjective Patient Comments Patient Comments Marsha been having some muscle spasm in my right side of the neck. I still have discomfort. Patient Reported Progress Same PT-OP-F Manual Assessment Start: 03/20/19 18:35 Freq: Status: Active Protocol: Document 03/20/19 17:35 HH (Rec: 03/20/19 19:18 HH [email or web address]) Manual Assessments Soft Tissue Assessment Soft Tissue Mobility Assessment Radiating pain to R shoulder with pressure to distal upper trap. PT-OP-H Neuro Start: 03/20/19 18:35 Freq: Status: Active Protocol: Document 03/20/19 17:35 HH (Rec: 03/20/19 19:18 HH [email or web address]) Deep Tendon Reflex & Clonus Assessment Deep Tendon Reflex Bilateral Brachioradialis Deep Tendon Reflex 2+ Normal Bilateral Bicep Deep Tendon Reflex 2+ Normal Bilateral Tricep Deep Tendon Reflex 2+ Normal PT-OP-J Posture/Palpation/Skin Start: 03/20/19 18:35 Freq: Status: Active Protocol: Document 03/20/19 17:35 HH (Rec: 03/20/19 19:18 HH [email or web address]) Posture Evaluation Position Standing Evaluation View Posterior Head/C-Spine Posture Rotated Left,Forward Head T-Spine Posture Fixed Scoliosis on (L) Shoulder Posture (R) Rounded,(L) Elevated PT-OP-K Range of Motion Start: 03/20/19 18:35 Freq: Status: Active Protocol: Document 03/20/19 17:35 HH (Rec: 03/20/19 19:19 HH [email or web address]) Cervical Spine Range of Motion Cervical Spine Active Degrees Testing Position Sitting Flexion 58 Extension 48 Rotation Left 45 Rotation Right 47 Lateral Flexion Left 30 Lateral Flexion Right 28 ROM Limitations Pain Comments Pain increased R rotation > L rotation, L sidebending > R sidebending pinching sensation with cervical extension. PT-OP-L Special Tests Start: 03/20/19 18:35 Freq: Status: Active Protocol: Document 03/20/19 17:35 HH (Rec: 03/20/19 19:18 HH [email or web address]) Special Tests Cervical Spine Special Tests supported shoulders with cervical rotation Test Results +VE B Comments pain reduced during rotation with B shoulders support. Traction Test Results +ve Comments seated traction Upper Limb Tension Test Test Results +ve R UE Comments for median and ulnar nerve Spurling's Test Test Results -ve B Lumbar Spine Special Tests Standing Flexion Test Results no pain Comments significant L mid thoracic scoliosis Shoulder Special Tests Adson Test Results -ve B HARPREET Test Results +VE R Comments numbness reproduced after 1 min PT-OP-M Strength Start: 03/20/19 18:35 Freq: Status: Active Protocol: Document 03/20/19 17:35 HH (Rec: 03/20/19 19:18 [email or web address]) Shoulder Strength Shoulder Manual Muscle Testing Left Flexion 4 Good Extension 4 Good Abduction (C5) 4- Good- Adduction 4 Good Right Flexion 4 Good Extension 4 Good Abduction (C5) 4- Good- Adduction 4 Good Elbow/Forearm Strength Elbow and Forearm Manual Muscle Testing Right Flexion (C6) 4+ Good+ Extension (C7) 4+ Good+ Left Flexion (C6) 4+ Good+ Extension (C7) 4+ Good+ Wrist Strength Wrist Manual Muscle Testing Right Flexion (C7) 4+ Good+ Extension (C6) 4+ Good+ Ulnar Deviation 4+ Good+ Radial Deviation 4+ Good+ Left Flexion (C7) 4+ Good+ Extension (C6) 4+ Good+ Ulnar Deviation 4+ Good+ Radial Deviation 4+ Good+ Hand Eligibility Analyst/Pinch Strength Hand Dominance Hand Dominance Right Hand Strength Left Eligibility Analyst (lbs) 12 Comments kilogram Right Eligibility Analyst (lbs) 20 Comments kilogram PT-OP-Q Treatments Start: 03/20/19 18:35 Freq: Status: Active Protocol: Document 04/11/19 17:32 HH (Rec: 04/11/19 18:25 [id number]) Therapeutic Exercises Supine Exercises tennis ball release Side bilateral Equipment Used tennis balls (peanut shape) Comments self massage at home Sidelying Exercises open book Sidelying Exercise Name with scap retraction and c/s rotatoin Side bilateral Reps/Minutes 5 mins Comments with lumbar block Standing Exercises scap row Standing Exercise Name full protraction and retraction Side bilateral Equipment Used level 1 band Reps/Minutes 5 mins standing wall pose Standing Exercise Name chin tuck and scap retraction Side bilateral Reps/Minutes 6 mins Manual Therapy Treatment Soft Tissue Mobilization levator scap Body Location R Mobilization Type Sustained Pressure,Trigger Point Release Intensity/Depth Moderate Body Position Supine Comments f/b post isometric relaxation 10 sec hold x5 c/s paraspinals Body Location R >L Mobilization Type Sustained Pressure,Trigger Point Release Intensity/Depth Moderate Body Position Supine Comments followed by IASTM suboccipital Body Location bilateral Mobilization Type Sustained Pressure,Trigger Point Release Intensity/Depth Moderate Body Position Supine Manual Traction c/s traction Body Position Supine Reps/Duration 10 secs hold x 8 PT-OP-T Assessment and Plan Start: 03/20/19 18:35 Freq: Status: Active Protocol: Document 04/11/19 17:32 HH (Rec: 04/11/19 18:25 HH [id number]) Physical Therapy Assessment Goals Eligibility Analyst strength Impairment R buffing line set up worker strength = 20kG Short Term Goal (STG) Pt will improve her R buffing line set up worker strength to 23KG in all 3 attempts STG Duration 5 weeks Correction Goal (LTG) Pt will improve her R buffing line set up worker strength to 25KG in all 3 attempts for opening jars without difficulty. LTG Duration 10 weeks pain Impairment R Neck pain at 6 at all times Short Term Goal (STG) pt will be able to move her c/ s with pain no more than 4/10 STG Duration 5 weeks Correction Goal (LTG) pt will be able to move her c/ s without any pain, along with reduced shooting pain to her R distal ulnar area during work and driving. LTG Duration 10 weeks ROM Impairment pt has limited c/s rotation and lateral flexion Short Term Goal (STG) Pt will improve her C/S ROM grossly by 10 degrees. STG Duration 5 weeks Correction Goal (LTG) Pt will improve her C/S ROM grossly by 15 degrees so she could turn her head while driving. LTG Duration 10 weeks quickdash and NDI Impairment pt scores both at 20-39% impairment Short Term Goal (STG) Pt will score both questionnaire < 20 % to improve her quality of life. STG Duration 5 weeks Correction Goal (LTG) Pt will score both questionnaire < 10 % to improve her quality of life. LTG Duration 10 weeks Assessment Summary Assessment tx focused on IASTM on suboccipital and proximal levator scap. She lana well but needed cues to scap retraction and wall pose to find neutral spine posture. Physical Therapy Plan Next Visit Focus/Plan Next Note Type Treatment Note Next Visit Plan manual therapy to relax r levator, trap, suboccipital reassess pt scoliosis seated cervical rotation with supported arm scap mobility retraction postural education scap strengthening
--- NOTE | 2019-10-29 11:22 | PT.OPDS ---
Current Diagnoses Other muscle spasm (04/11/19) Pain in right hand (04/11/19) Visit Care Team Role Provider Type Olivia Borjas MD Attending Provider Physician Family Provider Primary Care Provider Referring Provider Specialty: Family Practice Address: [address] [place] [address], [place], [place], [facility] Email: [email or web address] Visit Number Visit Number Discharge Summary PT-OP-B Current Condition Start: 03/20/19 18:35 Freq: Status: Active Protocol: Document 03/20/19 17:35 HH (Rec: 03/20/19 19:18 HH [email or web address]) Current Condition History of Current Condition Onset Date Mid January, Current Complaints R neck pain, difficulty with rotation, shooting pain at R hand History of Current Condition Pt is a 58 yo female presented to clinic with new onset of R neck pain since January,. She reports she developed sharp pain on the R side of the neck while working but does not know why it started. Pt then had difficulty turning her head immediately and she had to go walk in clinic the next day who was prescribed with muscle relaxant Cyclobenzaprine. Pt stated she is currently 80% better but still has pain during R head turn and sidebend to left, along with tension headache on the right side. She also has shooting pain at distal ulnar during ulnar deviation such as opening a jar and holding her carmera. 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 She did say lying flat tends to feel better. Treatment Goals Patient/Caregiver Goals 1. To be pain free for head turns and sidebending 2. 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 PT-OP-C Subjective Start: 03/20/19 18:35 Freq: Status: Active Protocol: Document 04/11/19 17:32 HH (Rec: 04/11/19 18:25 HH [id number]) OP-PT Subjective Patient Comments Patient Comments Marsha been having some muscle spasm in my right side of the neck. I still have discomfort. Patient Reported Progress Same PT-OP-F Manual Assessment Start: 03/20/19 18:35 Freq: Status: Active Protocol: Document 03/20/19 17:35 HH (Rec: 03/20/19 19:18 HH [email or web address]) Manual Assessments Soft Tissue Assessment Soft Tissue Mobility Assessment Radiating pain to R shoulder with pressure to distal upper trap. PT-OP-H Neuro Start: 03/20/19 18:35 Freq: Status: Active Protocol: Document 03/20/19 17:35 HH (Rec: 03/20/19 19:18 HH [email or web address]) Deep Tendon Reflex & Clonus Assessment Deep Tendon Reflex Bilateral Brachioradialis Deep Tendon Reflex 2+ Normal Bilateral Bicep Deep Tendon Reflex 2+ Normal Bilateral Tricep Deep Tendon Reflex 2+ Normal PT-OP-J Posture/Palpation/Skin Start: 03/20/19 18:35 Freq: Status: Active Protocol: Document 03/20/19 17:35 HH (Rec: 03/20/19 19:18 HH [email or web address]) Posture Evaluation Position Standing Evaluation View Posterior Head/C-Spine Posture Rotated Left,Forward Head T-Spine Posture Fixed Scoliosis on (L) Shoulder Posture (R) Rounded,(L) Elevated PT-OP-K Range of Motion Start: 03/20/19 18:35 Freq: Status: Active Protocol: Document 03/20/19 17:35 HH (Rec: 03/20/19 19:19 HH [email or web address]) Cervical Spine Range of Motion Cervical Spine Active Degrees Testing Position Sitting Flexion 58 Extension 48 Rotation Left 45 Rotation Right 47 Lateral Flexion Left 30 Lateral Flexion Right 28 ROM Limitations Pain Comments Pain increased R rotation > L rotation, L sidebending > R sidebending pinching sensation with cervical extension. PT-OP-L Special Tests Start: 03/20/19 18:35 Freq: Status: Active Protocol: Document 03/20/19 17:35 HH (Rec: 03/20/19 19:18 HH [email or web address]) Special Tests Cervical Spine Special Tests supported shoulders with cervical rotation Test Results +VE B Comments pain reduced during rotation with B shoulders support. Traction Test Results +ve Comments seated traction Upper Limb Tension Test Test Results +ve R UE Comments for median and ulnar nerve Spurling's Test Test Results -ve B Lumbar Spine Special Tests Standing Flexion Test Results no pain Comments significant L mid thoracic scoliosis Shoulder Special Tests Adson Test Results -ve B HARPREET Test Results +VE R Comments numbness reproduced after 1 min PT-OP-M Strength Start: 03/20/19 18:35 Freq: Status: Active Protocol: Document 03/20/19 17:35 (Rec: 03/20/19 19:18 HH [email or web address]) Shoulder Strength Shoulder Manual Muscle Testing Left Flexion 4 Good Extension 4 Good Abduction (C5) 4- Good- Adduction 4 Good Right Flexion 4 Good Extension 4 Good Abduction (C5) 4- Good- Adduction 4 Good Elbow/Forearm Strength Elbow and Forearm Manual Muscle Testing Right Flexion (C6) 4+ Good+ Extension (C7) 4+ Good+ Left Flexion (C6) 4+ Good+ Extension (C7) 4+ Good+ Wrist Strength Wrist Manual Muscle Testing Right Flexion (C7) 4+ Good+ Extension (C6) 4+ Good+ Ulnar Deviation 4+ Good+ Radial Deviation 4+ Good+ Left Flexion (C7) 4+ Good+ Extension (C6) 4+ Good+ Ulnar Deviation 4+ Good+ Radial Deviation 4+ Good+ Hand Guide Setter/Pinch Strength Hand Dominance Hand Dominance Right Hand Strength Left Guide Setter (lbs) 12 Comments kilogram Right Guide Setter (lbs) 20 Comments kilogram PT-OP-T Assessment and Plan Start: 03/20/19 18:35 Freq: Status: Active Protocol: Document 10/29/19 11:22 (Rec: 10/29/19 11:22 [email or web address]) Physical Therapy Plan Discharge Physical Therapy Discharge Reasons No Longer Attending PT Discharge Comments Patient did not return call after clinic re-opening, 30+ days.. DC from PT today
== END 2019-11-26 10:47 ==
LOC: PHYS 17:30
PROVIDERS: Family Provider Family Medicine; PCP Family Medicine; Referring Provider Family Medicine; Visit Provider Family Medicine
DX: M62.838 Other muscle spasm (principal); M79.641 Pain in right hand
CPT/HCPCS: 97110; 97140; 97162

== ENCOUNTER → 2020-02-04 09:10 | Outpatient (CLI) | payer OTHER, SELFPAY | PROVIDERS: Family Provider Family Medicine; PCP Family Medicine; Visit Provider Nurse Practitioner Family | DX: R35.0 Frequency of micturition (principal) | CPT/HCPCS: 87077; 87086; 87186 ==

== ENCOUNTER → 2020-03-31 17:40 | Outpatient (CLI) | payer OTHER, SELFPAY ==
--- NOTE | 2020-03-31 17:41 | DI.MG.S_ITS ---
BILATERAL DIGITAL SCREENING MAMMOGRAM 3D/2D WITH CAD: 03/31/2020 CLINICAL: Routine screening. Family history of breast cancer. Comparison is made to exams dated: 02/28/2019 mammogram, 01/25/2018 mammogram - [facility], and 07/30/2012 mammogram - [facility]. There are scattered fibroglandular elements in both breasts. Current study was also evaluated with a Computer Aided Detection (CAD) system. No significant masses, calcifications, or other findings are seen in either breast. There has been no significant interval change. IMPRESSION: NEGATIVE There is no mammographic evidence of malignancy. A 1 year screening mammogram is recommended. This exam was interpreted at Station ID: [id number]. NOTE: For mammograms, a report in lay terms will be sent to the patient. Approximately 15% of breast malignancies will not be visualized mammographically. In the management of a palpable breast mass, a negative mammogram must not discourage biopsy of a clinically suspicious lesion. Electronically Signed By: Wei faulkner/silvano:04/01/2020 08:04:24 letter sent: Normal Exam ACR BI-RADS Category 1: Negative 3341F
== END ==
PROVIDERS: Family Provider Family Medicine; PCP Family Medicine; Referring Provider Family Medicine; Visit Provider Family Medicine
DX: Z12.31 Encounter for screening mammogram for malignant neoplasm of breast (principal); Z80.3 Family history of malignant neoplasm of breast
CPT/HCPCS: 77063; 77067

== ENCOUNTER → 2020-06-03 06:55 | Outpatient (CLI) | payer OTHER, SELFPAY ==
[2020-06-03 08:48] LABS: Cholesterol 202 mg/dL (140-199); Glucose 84 mg/dL (70-100); HDL Cholesterol 54 mg/dL (40-60); LDL Cholesterol Calculated 132 mg/dL (<100); Triglycerides 82 mg/dL (35-150)
== END ==
PROVIDERS: Family Provider Family Medicine; PCP Family Medicine; Referring Provider Family Medicine; Visit Provider Family Medicine
DX: Z13.220 Encounter for screening for lipoid disorders (principal); Z13.1 Encounter for screening for diabetes mellitus
CPT/HCPCS: 36415; 80061; 82947

== ENCOUNTER → 2020-10-15 13:47 | Outpatient (CLI) | payer OTHER, SELFPAY ==
[2020-10-15 14:16] LABS: COVID19 -Nasal RAPID Negative (Negative)
== END ==
PROVIDERS: Family Provider Family Medicine; PCP Family Medicine; Visit Provider Nurse Practitioner
DX: R05 Cough (principal); Z20.822 Contact with and (suspected) exposure to COVID-19
CPT/HCPCS: 87635

== ENCOUNTER → 2020-10-20 16:50 | Outpatient (CLI) | payer OTHER, SELFPAY ==
--- NOTE | 2020-10-20 16:53 | DI.MRI.S_ITS ---
PROCEDURE: MR WRIST RT WO CON INDICATIONS: right wrist pain TECHNIQUE: Noncontrast coronal proton density fast spin echo and T2 fast spin echo with fat saturation; coronal 3-D gradient echo, axial T1 spin echo and T2 fast spin echo with fat saturation, sagittal T1 spin echo through the wrist. COMPARISON: None. FINDINGS: Image quality: Excellent. Bones and cartilage: The carpal bones are normally aligned. No bone marrow contusions or fractures. Scattered degenerative subchondral sclerosis and spurring. Diffuse subchondral cystic change throughout the carpus. No evidence for avascular necrosis. Overlying cartilage surfaces appear normal. Carpal ligaments: The scapholunate and lunotriquetral ligaments appear intact. In the absence of intra-articular contrast, the extrinsic carpal ligaments are not well identified. On sagittal images, the pisohamate ligament appears intact. Triangular fibrocartilage complex: The triangular fibrocartilage appears intact. The adjacent meniscal homolog appears normal in the absence of intra-articular contrast. The extensor carpi ulnaris tendon is normal in location and morphology. Tendons and soft tissues: The carpal tunnel structures appear normal, including the median nerve. The ulnar nerve appears normal within Guyon's canal. Extensor digitorum , extensor carpi radialis longus and brevis minimal tenosynovitis. Multiloculated ganglion cyst seen at the tip of the radial styloid measuring 0.9 x 0.7 cm. 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 Minimal extensor digitorum, extensor carpi radialis longus and brevis tenosynovitis Multiloculated ganglion cyst at the tip of the radial styloid. Dictated by: Bobo Conrad M.D. on 10/21/2020 at 8:55 Approved by: Bobo Conrad M.D. on 10/21/2020 at 9:01
== END ==
PROVIDERS: Family Provider Family Medicine; PCP Family Medicine; Referring Provider Family Medicine; Visit Provider Family Medicine
DX: M25.531 Pain in right wrist (principal); M18.11 Unilateral primary osteoarthritis of first carpometacarpal joint, right hand; M19.031 Primary osteoarthritis, right wrist; M67.431 Ganglion, right wrist; R30.0 Dysuria; R35.0 Frequency of micturition
CPT/HCPCS: 73221; 87077; 87086; 87186

== ENCOUNTER → 2020-10-20 17:48 | Outpatient (CLI) | payer OTHER, SELFPAY | PROVIDERS: Family Provider Family Medicine; PCP Family Medicine; Visit Provider Nurse Practitioner Family | DX: R30.0 Dysuria (principal); R35.0 Frequency of micturition | CPT/HCPCS: 87086 ==

== ENCOUNTER → 2021-04-01 15:32 | Outpatient (CLI) | payer OTHER, SELFPAY ==
--- NOTE | 2021-04-01 | DI.MG.S_ITS ---
BILATERAL DIGITAL SCREENING MAMMOGRAM 3D/2D WITH CAD: 04/01/2021 CLINICAL: Routine screening. Family history of breast cancer. Comparison is made to exams dated: 03/31/2020 mammogram, 02/28/2019 mammogram, and 01/25/2018 mammogram - [facility]. There are scattered fibroglandular elements in both breasts. Current study was also evaluated with a Computer Aided Detection (CAD) system. No significant masses, calcifications, or other findings are seen in either breast. There has been no significant interval change. IMPRESSION: NEGATIVE There is no mammographic evidence of malignancy. A 1 year screening mammogram is recommended. This exam was interpreted at Station ID: [id number]. NOTE: For mammograms, a report in lay terms will be sent to the patient. Approximately 15% of breast malignancies will not be visualized mammographically. In the management of a palpable breast mass, a negative mammogram must not discourage biopsy of a clinically suspicious lesion. Electronically Signed By: Danii heck/silvano:04/02/2021 10:24:31 letter sent: Normal Exam ACR BI-RADS Category 1: Negative 3341F
== END ==
PROVIDERS: Family Provider Family Medicine; PCP Family Medicine; Referring Provider Family Medicine; Visit Provider Family Medicine
DX: Z12.31 Encounter for screening mammogram for malignant neoplasm of breast (principal); Z80.3 Family history of malignant neoplasm of breast
CPT/HCPCS: 77063; 77067

== ENCOUNTER → 2021-09-20 09:47 | Outpatient (CLI) | payer OTHER, SELFPAY ==
--- NOTE | 2021-09-20 09:49 | DI.RAD.S_ITS ---
PROCEDURE: XR FOOT RT MIN 3V INDICATIONS: pain TECHNIQUE: 3 views of the foot were acquired. COMPARISON: None. FINDINGS: Bones: Acute intra-articular fracture involving plantar and lateral aspect of 5th proximal phalangeal head with fracture line extending to 5th PIP joint space and slight lateral displacement at fracture site.. No suspicious bony lesions. Soft tissues: No tibiotalar joint effusion. Achilles tendon appears normal. IMPRESSION: Acute slightly displaced intra-articular fracture involving 5th proximal phalangeal head as above. Dictated by: Jose Brand M.D. on 09/20/2021 at 10:03 Approved by: Jose Brand M.D. on 09/20/2021 at 10:10
== END ==
PROVIDERS: Family Provider Family Medicine; PCP Family Medicine; Referring Provider Student in an Organized Health Care Education/Training Program; Visit Provider Student in an Organized Health Care Education/Training Program
DX: S92.514A Nondisplaced fracture of proximal phalanx of right lesser toe(s), initial encounter for closed fracture (principal); M79.674 Pain in right toe(s); M79.89 Other specified soft tissue disorders
CPT/HCPCS: 73630

== ENCOUNTER → 2022-05-05 16:45 | Outpatient (CLI) | payer OTHER, SELFPAY ==
--- NOTE | 2022-05-05 16:47 | DI.MG.S_ITS ---
BILATERAL DIGITAL SCREENING MAMMOGRAM 3D/2D WITH CAD: 05/05/2022 CLINICAL: Routine screening. Family history of breast cancer. Comparison is made to exams dated: 04/01/2021 mammogram, 03/31/2020 mammogram, 02/28/2019 mammogram, and 01/25/2018 mammogram - [facility]. Both breasts are heterogeneously dense, which may obscure small masses (category c / 51-75% glandular tissue). Current study was also evaluated with a Computer Aided Detection (CAD) system. No significant masses, calcifications, or other findings are seen in either breast. There has been no significant interval change. IMPRESSION: NEGATIVE There is no mammographic evidence of malignancy. A 1 year screening mammogram is recommended. Based on the Tyrer Cuzick model (a risk assessment model) the patient's lifetime risk is 10.6% and her 10 year risk is 4.4%. According to the ACR, ACS, and NCCN guidelines, an annual breast MRI exam along with mammogram is recommended if the patient's lifetime risk is 20% or greater. This exam was interpreted at Station ID: [id number]. NOTE: For mammograms, a report in lay terms will be sent to the patient. Approximately 15% of breast malignancies will not be visualized mammographically. In the management of a palpable breast mass, a negative mammogram must not discourage biopsy of a clinically suspicious lesion. Electronically Signed By: Wei faulkner/silvano:05/06/2022 09:26:32 letter sent: Normal Exam ACR BI-RADS Category 1: Negative 3341F
== END ==
PROVIDERS: Family Provider Family Medicine; PCP Family Medicine; Referring Provider Family Medicine; Visit Provider Family Medicine
DX: Z12.31 Encounter for screening mammogram for malignant neoplasm of breast (principal)
CPT/HCPCS: 77063; 77067

== ENCOUNTER → 2022-06-28 09:05 | Outpatient (CLI) | payer OTHER, SELFPAY ==
--- NOTE | 2022-06-28 09:06 | DI.RAD.S_ITS ---
PROCEDURE: XR TOE RT MIN 2V INDICATIONS: toe pain TECHNIQUE: 3 views of the 5th toe(s) acquired. COMPARISON: None. FINDINGS: Bones: There is fusion at 5th DIP joint. Oblique fracture through distal shaft of 5th proximal phalanx is seen with mildly increased sclerosis and small amount of periosteal reaction. No other fracture or dislocation. No suspicious bony lesions. Soft tissues: No suspicious soft tissue densities. IMPRESSION: Acute to subacute appearing nondisplaced oblique fracture involving distal shaft of 5th proximal phalanx. No other fracture or dislocation. Dictated by: Jose Brand M.D. on 06/28/2022 at 10:48 Approved by: Jose Brand M.D. on 06/28/2022 at 10:49
== END ==
PROVIDERS: Family Provider Family Medicine; PCP Family Medicine; Referring Provider Family Medicine; Visit Provider Family Medicine
DX: S92.514A Nondisplaced fracture of proximal phalanx of right lesser toe(s), initial encounter for closed fracture (principal)
CPT/HCPCS: 73660

== ENCOUNTER → 2022-07-09 07:46 | Outpatient (CLI) | payer OTHER, SELFPAY | PROVIDERS: Family Provider Family Medicine; PCP Family Medicine; Visit Provider Physician Assistant | DX: R30.0 Dysuria (principal) | CPT/HCPCS: 87086; 87210 ==

== ENCOUNTER → 2022-07-21 16:37 | Outpatient (CLI) | payer OTHER, SELFPAY | PROVIDERS: Family Provider Family Medicine; PCP Family Medicine; Visit Provider Nurse Practitioner Family | DX: R30.0 Dysuria (principal); N89.8 Other specified noninflammatory disorders of vagina | CPT/HCPCS: 87077; 87086; 87186; 87210 ==

== ENCOUNTER 2022-09-08 07:26 | Day surgery (SDC) | payer OTHER, SELFPAY ==
[2022-09-08 07:45] VITALS: BP 123/66; PULSE 76; RESP 17; TEMP 36.1; O2SAT 98; BMI 18.3
[2022-09-08] MEDS: LACTATED RINGERS 1,000 ML 125 ML IV (08:01)
[2022-09-08 08:36] LABS: Cholesterol 265 mg/dL (140-199); HDL Cholesterol 67 mg/dL (40-60); LDL Cholesterol Calculated 168 mg/dL (<100); Triglycerides 149 mg/dL (35-150)
--- NOTE | 2022-09-08 08:36 | PM.HP.1 ---
History of Present Illness History of Present Illness Date Patient Seen: 09/08/22 Time Patient Seen: 08:36 Chief complaint: SDC//lab eo Narrative: Nancy is a 62-year-old woman who is here for colonoscopy. She had one over 10 years ago which was normal. No known family history of colon cancer [facility], [facility] Medical History (Updated 09/08/22 @ 08:37 by Dario Singh MD) Ankle pain (2009) Anxiety (~2009) Chicken pox (1968) Distal radius fracture, left (2016) Migraines (1985) Pure hypercholesterolemia Surgical History History of ankle surgery (~01/2010) History of endometrial ablation (2006) History of orthopedic surgery (2016) Family History Father Heart disease High cholesterol Congestive heart failure Mother Age: 87 Atrial fibrillation Hypertension High cholesterol Sister Age: 62 High cholesterol Grandfather Stroke Heart problem Grandmother Ovarian cancer Grandfather Rheumatic fever Grandmother Diabetes mellitus Social History household members: none Smoking Status: Never smoker alcohol intake: current Meds Home Medications and Allergies Home Medications Medication Instructions Recorded Confirmed Type fluticasone propionate 50 1 spray intranasal QDAY ##0 11/18/16 09/08/22 History mcg/actuation nasal spray,suspension (Flonase Allergy Relief) [hot flash] ##0 02/07/17 06/28/22 History lorazepam 0.5 mg tablet 0.5 mg PO Q8HP PRN anxiety #10 tabs 01/18/22 09/08/22 Rx rizatriptan 10 mg disintegrating 10 mg PO QDAY PRN migraine 02/09/22 09/08/22 Rx tablet headache #30 tabs albuterol sulfate 90 mcg/actuation 2 puff inhalation Q6H PRN 05/18/22 09/08/22 Rx aerosol inhaler shortness of breath or wheezing #6.7 grams inhalational spacing device #1 ea 05/18/22 06/28/22 Rx (Aerochamber MV spacer) cyclobenzaprine 5 mg tablet 5 mg PO Q8H PRN muscle spasm #30 07/06/22 09/08/22 Rx tabs Allergies Allergy/AdvReac Type Severity Reaction Status Date / Time Penicillins [PENICILLINS] Allergy Unknown Verified 07/21/22 16:36 Exam Vital Signs (past 8 hours): - 09/08/22 07:45 Temperature 97 F L Pulse Rate 76 Respiratory Rate 17 Blood Pressure 123/66 Pulse Oximetry 98 Oxygen Delivery Method Room Air Oxygen Delivery Method Room Air Const General: healthy appearing Assessment & Plan Assessment and plan (1) Colon cancer screening: Status: Acute Plan We reviewed risks and benefits of colonoscopy for colon cancer screening and she would like to proceed.
--- NOTE | 2022-09-08 09:14 | SUR.OPER ---
glasses to pacu with patient in labeled case
--- NOTE | 2022-09-08 09:21 | PM.OP.COLON ---
Operative Date/Time/Diagnoses Date of procedure: 09/08/22 Time of procedure: 09:21 Pre-op diagnosis: Colon cancer screening Post-op diagnosis: same Procedure & Clinicians Study performed: Colonoscopy Same procedure as scheduled: Yes Surgeon: Dario Singh Procedure Notes Procedure in detail: Surgeon: Dario Singh MD Anesthesia: Julio Vega CRNA Procedure: The patient was brought to the endoscopy suite, placed in left lateral decubitus position. The patient was connected to monitoring devices. A time-out was performed. Sedation was administered. Once the patient was adequately sedated, a digital rectal exam was performed and was normal. The scope was then inserted and advanced to the cecum where the appendiceal orifice was identified and photographed. The scope was then slowly withdrawn over greater than 6 minutes. The mucosa was thoroughly inspected. No abnormalities were found. The scope was retroflexed in the rectum. No abnormalities were found. The scope was straightened and removed. The patient was awakened and brought to recovery. Scope withdrawal time: 7 minutes Sedation time: 15 minutes EBL: 0 Findings: Normal colon Post-procedure Recommendations: Colonoscopy in 10 years Disposition: PACU
[2022-09-08 09:22] VITALS: BP 78/39; PULSE 71; RESP 18; TEMP 36.6; O2SAT 96
[2022-09-08 09:23] VITALS: BP 76/41; PULSE 74; RESP 12; O2SAT 96
[2022-09-08 09:30] VITALS: BP 80/50; PULSE 69; RESP 17; O2SAT 96
[2022-09-08 09:35] VITALS: BP 99/62; PULSE 74; RESP 12; O2SAT 99
[2022-09-08 09:46] VITALS: BP 101/56; PULSE 65; RESP 13; TEMP 36.1; O2SAT 100
== END 2022-09-08 10:08 | disposition home or self-care (01) ==
PROVIDERS: Family Provider Family Medicine; PCP Family Medicine; Referring Provider Surgery; Visit Provider Surgery
PROC: 0DJD8ZZ Inspection of Lower Intestinal Tract, Via Natural or Artificial Opening Endoscopic (ICD-10-PCS; CPT 45378; principal; 2022-09-08 08:45)
DX: Z12.11 Encounter for screening for malignant neoplasm of colon (principal)
CPT/HCPCS: 45378; 36415; 80061; J2704

== ENCOUNTER → 2022-11-08 16:02 | Outpatient (CLI) | payer OTHER, SELFPAY | PROVIDERS: Family Provider Family Medicine; PCP Family Medicine; Visit Provider Physician Assistant | DX: R30.0 Dysuria (principal) | CPT/HCPCS: 87077; 87086; 87186 ==

== ENCOUNTER → 2022-11-23 16:01 | Outpatient (CLI) | payer OTHER, SELFPAY ==
[2022-11-23 18:19] LABS: Appearance Urine UA CLEAR; Bilirubin Urine UA NEGATIVE (NEGATIVE); Color Urine UA YELLOW; Glucose Urine UA NEGATIVE (Negative); Ketones Urine UA NEGATIVE (NEGATIVE); Leukocyte Esterase Urine UA TRACE (NEGATIVE); Nitrite Urine UA NEGATIVE (Negative); Occult Blood Urine UA NEGATIVE (Negative); Protein Urine UA NEGATIVE (Negative); Urobilinogen Urine UA 0.2 E.U./dL (0.2)
[2022-11-23 18:39] LABS: Bacteria Urine Occasional (0-1); Culture Indicated Urine Specimen Cultured; RBC Urine None Seen (0-5/HPF); Squamous Epithelial Cell Urine 0-1 /HPF (0-5/HPF); WBC Urine 0-1/HPF (0-5/HPF)
== END ==
PROVIDERS: Family Provider Family Medicine; PCP Family Medicine; Referring Provider Family Medicine; Visit Provider Family Medicine
DX: R30.0 Dysuria (principal)
CPT/HCPCS: 81001; 87086

== ENCOUNTER → 2022-12-28 14:31 | Outpatient (CLI) | payer OTHER, SELFPAY | PROVIDERS: Family Provider Family Medicine; PCP Family Medicine; Visit Provider Nurse Practitioner Family | DX: R30.0 Dysuria (principal) | CPT/HCPCS: 87086 ==

== ENCOUNTER → 2023-01-27 08:28 | Outpatient (CLI) | payer OTHER, SELFPAY | PROVIDERS: Family Provider Family Medicine; PCP Family Medicine; Visit Provider Nurse Practitioner Family | DX: R30.0 Dysuria (principal) | CPT/HCPCS: 87077; 87086; 87185; 87186 ==

== ENCOUNTER → 2023-03-04 10:11 | Outpatient (CLI) | payer OTHER, SELFPAY | PROVIDERS: Family Provider Family Medicine; PCP Family Medicine; Visit Provider Physician Assistant | DX: R30.0 Dysuria (principal) | CPT/HCPCS: 87086 ==

== ENCOUNTER → 2023-03-21 17:58 | Outpatient (CLI) | payer OTHER, SELFPAY | PROVIDERS: Family Provider Family Medicine; PCP Family Medicine; Visit Provider Physician Assistant Surgical | DX: R39.9 Unspecified symptoms and signs involving the genitourinary system (principal) | CPT/HCPCS: 87077; 87086; 87186 ==

== ENCOUNTER → 2023-04-05 07:18 | Outpatient (CLI) | payer OTHER, SELFPAY | PROVIDERS: Family Provider Family Medicine; PCP Family Medicine; Visit Provider Nurse Practitioner Family | DX: N39.0 Urinary tract infection, site not specified (principal) | CPT/HCPCS: 87086 ==

== ENCOUNTER → 2023-04-17 15:37 | Outpatient (CLI) | payer OTHER, SELFPAY ==
[2023-04-17 17:10] LABS: Blood Urea Nitrogen 27 mg/dL (7-17); Calcium 9.7 mg/dL (8.4-10.2); Carbon Dioxide 27 mmol/L (22-32); Chloride 106 mmol/L (98-107); Estimated Glomerular Filt Rate > 60 mL/min (>60); Glucose 86 mg/dL (80-110); HEMOLYSIS 22 (0-50); Potassium 4.1 mmol/L (3.4-5.1); Sodium 139 mmol/L (137-145)
== END ==
PROVIDERS: Family Provider Family Medicine; PCP Family Medicine; Referring Provider Urology; Visit Provider Urology
DX: N39.0 Urinary tract infection, site not specified (principal); N95.2 Postmenopausal atrophic vaginitis
CPT/HCPCS: 36415; 51798; 80048; 81002

== ENCOUNTER → 2023-04-19 15:02 | Outpatient (CLI) | payer OTHER, SELFPAY ==
--- NOTE | 2023-04-19 15:02 | DI.CT.S_ITS ---
PROCEDURE: CT IVP A/P W/WO INDICATIONS: Chronic recurrent urinary tract infection TECHNIQUE: Optional 5 mm thick noncontrast images acquired from the diaphragm to the symphysis pubis. After the administration of intravenous contrast, 5 mm thick images acquired from the diaphragm to the symphysis pubis after a 10-minute delay. 2 mm thick coronal and sagittal reformats were then performed of the kidneys and ureters. For radiation dose reduction, the following was used: automated exposure control, adjustment of mA and/or kV according to patient size. COMPARISON: None. FINDINGS: Image quality: Diagnostic. Kidneys and Ureters: Both kidneys are normal in size, without hydronephrosis or nephrolithiasis. No perinephric fat stranding. There is normal bilateral renal enhancement. Renal calyces appear normal in morphology when filled with contrast. Opacified portions of both ureters demonstrate normal caliber Bladder: Bladder wall thickness is normal. No calcified bladder stones. OTHER: Lower chest: A few pulmonary micro nodules in the lung bases. Liver: No solid mass. Gallbladder: No radiopaque gallstones or wall thickening. Biliary ducts: No biliary dilation. Pancreas: No ductal dilation. Spleen: Size is within normal limits. Adrenal Glands: No adrenal nodules. Stomach and Bowel: Normal colonic caliber, without significant wall thickening. Colonic diverticulosis without evidence of diverticulitis. Peritoneum: No abnormal intraperitoneal fluid. No free air. Ventral Wall: No hernia. Abdominal Nodes: No retroperitoneal or mesenteric adenopathy by size criteria. Vessels: Aorta and inferior vena cava are normal in size. PELVIS: Pelvic Organs: Unremarkable. Pelvic Nodes: No enlarged lymph nodes. Miscellaneous: No inguinal hernias are seen. Bones: No aggressive osseous abnormality. Right sacral ala insufficiency fracture. IMPRESSION: No nephrolithiasis or filling defects within the opacified renal collecting system or ureters. Right sacral ala insufficiency fracture. A few pulmonary micro nodules in the lung bases. Consider 12 month follow-up if at high risk for developing lung cancer, per Fleischner Society guidelines. Dictated by: Don Ward M.D. on 04/19/2023 at 16:31 Approved by: Don Ward M.D. on 04/19/2023 at 16:35
== END ==
LOC: CT 15:02
PROVIDERS: Family Provider Family Medicine; PCP Family Medicine; Referring Provider Urology; Visit Provider Urology
DX: N39.0 Urinary tract infection, site not specified (principal); M84.48XA Pathological fracture, other site, initial encounter for fracture; R91.8 Other nonspecific abnormal finding of lung field; K57.90 Diverticulosis of intestine, part unspecified, without perforation or abscess without bleeding
CPT/HCPCS: 74178; Q9967

== ENCOUNTER → 2023-04-22 07:59 | Outpatient (CLI) | payer OTHER, SELFPAY ==
[2023-04-22 08:59] LABS: Appearance Urine UA SL CLOUDY; Color Urine UA ORANGE
[2023-04-22 11:10] LABS: Urine Volume 10mL (spun)
[2023-04-22 11:11] LABS: Bacteria Urine Many (>30); Culture Indicated Urine Specimen Cultured; RBC Urine 30-100/HPF (0-5/HPF); Squamous Epithelial Cell Urine 5-10 /HPF (0-5/HPF); WBC Urine >100/HPF (0-5/HPF)
== END ==
PROVIDERS: Family Provider Family Medicine; PCP Family Medicine; Visit Provider Physician Assistant Medical
DX: N39.0 Urinary tract infection, site not specified (principal); R30.0 Dysuria
CPT/HCPCS: 81003; 81015; 87077; 87086; 87186

== ENCOUNTER → 2023-04-28 14:35 | Outpatient (CLI) | payer OTHER, SELFPAY ==
--- NOTE | 2023-04-28 15:00 | DI.RAD.S_ITS ---
Bone Density Report Name: NICCI WAKEFIELD Age: 62 Sex: Female Ethnicity: White Date of : 1960 Indication: postmenopausal; screening for osteoporosis; Referring Provider: ERICKA MELGAR Study: Bone densitometry was performed. Exam Date: April 28, 2023 Accession number: [id number] Bone Density: Region BMD T-score Z-score Classification AP Spine(L1, L2, L3) 0.601 -3.8 -2.2 Osteoporosis Femoral Neck (Left) 0.547 -2.7 -1.3 Osteoporosis Total Hip (Left) 0.689 -2.1 -1.0 Osteopenia Femoral Neck (Right) 0.569 -2.5 -1.1 Osteoporosis Total Hip (Right) 0.724 -1.8 -0.7 Osteopenia Total Hip Mean 0.707 -2.0 -0.9 Osteopenia World Health Organization criteria for BMD impression classify patients as: Normal (T-score at or above -1.0), Osteopenia (T-score between -1.0 and -2.5), or Osteoporosis (T-score at or below -2.5). 10-year Fracture Risk: FRAX not reported because: Some T-score for Spine Total or Hip Total or Femoral Neck at or below -2.5 Impression: The patient has osteoporosis, based on the Total Spine T-score. Discussion: HIGH RISK OF FRACTURE. BONE DENSITY IS UNDESIRABLY LOW AT ONE OR MORE SKELETAL SITES, CONSISTENT WITH OSTEOPOROSIS. ALSO, BONE DENSITY IS LOWER THAN EXPECTED FOR AGE AND SEX AT ONE OR MORE SKELETAL SITES; RECOMMEND A DILIGENT SEARCH FOR SECONDARY CAUSES OF BONE LOSS. This patient's lowest T-score meets the World Health Organization's (WHO) criteria for osteoporosis at one or more sites (T-score -2.5 or below). In untreated patients, the risk of osteoporotic fracture increases approximately two-fold for each 1.0 SD decrease in T-score. Low bone density is not the only risk factor for fracture; also consider factors such as patient's age, frailty or poor health, risk of falling, risk of injury, previous osteoporotic fracture, family history of osteoporosis, cigarette smoking, low body weight, etc. Not everyone with low bone mineral density has osteoporosis; osteomalacia and other metabolic bone disorders should also be considered. Patients who have osteoporosis should be evaluated for specific diseases and conditions (secondary causes) that may cause or contribute to bone loss. The [employer] Association of Clinical Endocrinologists (AACE) and National Osteoporosis Foundation (NOF) recommend pharmacologic intervention for all postmenopausal women whose T-score is in this range. Also, this patient's bone mineral density is below the range considered normal for healthy age-, sex-, and race-matched controls at least one site (Z-score -2.0 or below). This warrants careful evaluation for diseases and conditions that may contribute to accelerated bone loss. The patient should follow a healthful lifestyle (good nutrition with adequate calcium and vitamin D, and appropriate weight-bearing exercise). Follow-Up: Consider a repeat BMD and Vertebral Fracture Assessment (VFA) exam in 2 years or sooner if medically necessary, to reassess this patient's status. Reported by: ARTIS ROMANO M.D. on 04/28/2023 3:10:00 PM.
== END ==
PROVIDERS: Family Provider Family Medicine; PCP Family Medicine; Referring Provider Family Medicine; Visit Provider Family Medicine
DX: M81.0 Age-related osteoporosis without current pathological fracture (principal)
CPT/HCPCS: 77080

== ENCOUNTER → 2023-05-01 07:36 | Outpatient (CLI) | payer OTHER, SELFPAY | PROVIDERS: Family Provider Family Medicine; PCP Family Medicine; Visit Provider Nurse Practitioner Family | DX: N89.8 Other specified noninflammatory disorders of vagina (principal) | CPT/HCPCS: 87210 ==

== ENCOUNTER → 2023-05-04 07:20 | Outpatient (CLI) | payer OTHER, SELFPAY ==
[2023-05-04 09:06] LABS: Appearance Urine UA CLEAR; Bilirubin Urine UA NEGATIVE (NEGATIVE); Color Urine UA YELLOW; Glucose Urine UA NEGATIVE (Negative); Ketones Urine UA NEGATIVE (NEGATIVE); Leukocyte Esterase Urine UA 2+ (NEGATIVE); Nitrite Urine UA NEGATIVE (Negative); Occult Blood Urine UA 3+ (Negative); Protein Urine UA NEGATIVE (Negative); Specific Gravity Urine UA <=1.005 (1.000-1.035); Urobilinogen Urine UA 0.2 E.U./dL (0.2)
[2023-05-04 09:15] LABS: Bacteria Urine Few (2-10); Culture Indicated Urine Specimen Cultured; RBC Urine 1-5/HPF (0-5/HPF); Squamous Epithelial Cell Urine None Seen (0-5/HPF); Urine Volume 10mL (spun); WBC Urine 10-30/HPF (0-5/HPF)
== END ==
PROVIDERS: Family Provider Family Medicine; PCP Family Medicine; Visit Provider Physician Assistant
DX: N89.8 Other specified noninflammatory disorders of vagina (principal); R30.0 Dysuria
CPT/HCPCS: 81001; 87086; 87210

== ENCOUNTER → 2023-05-05 12:11 | Outpatient (CLI) | payer OTHER, SELFPAY ==
--- NOTE | 2023-05-05 12:12 | DI.RAD.S_ITS ---
PROCEDURE: XR LUMBAR SPINE 2-3V INDICATIONS: low back pain TECHNIQUE: 3 views of the lumbar spine were acquired. COMPARISON: [facility], CR, XR LUMBAR SPINE 2-3V, 09/12/2018, 11:31. FINDINGS: Bones: 5 [id number] vertebrae are present. There is normal bony alignment. No vertebral body compression fractures. No suspicious bony lesions. Generalized decreased osseous mineralization noted. Soft tissues: Overlying bowel gas pattern is normal. No suspicious soft tissue calcifications. IMPRESSION: Osteopenia without fracture or foreign body Approved by: Jame Feldman M.D. on 05/05/2023 at 19:58
[2023-05-05 13:14] LABS: Add Manual Diff / Slide Review NO; Basophils Absolute Auto 200 /uL (0-100); Basophils Percent Auto 3.2 % (0-2); Eosinophils Absolute Auto 100 /uL (0-450); Eosinophils Percent Auto 1.2 % (2-4); Hematocrit 40.2 % (36-46); Hemoglobin 13.4 g/dL (12.0-16.0); Lymphocytes Absolute Auto 1500 /uL (1100-4500); Mean Corpuscular HGB Conc 33.4 % (30-36); Mean Corpuscular Hemoglobin 30.5 PG (26-34); Mean Corpuscular Volume 91.3 fL (80-100); Monocytes Absolute Auto 300 /uL (0-900); Monocytes Percent Auto 5.9 % (3-14); Neutrophils Absolute Auto 3400 /uL (1500-7000); Neutrophils Percent Auto 62.7 % (50-75); Platelet Count 197 X10^3/uL (150-400); Red Blood Cell Count 4.41 X10^6/uL (4.0-5.2); Red Cell Distribution Width 13.1 % (11.6-14.8); White Blood Cell Count 5.5 X10^3/uL (4.5-11.0)
[2023-05-05 13:51] LABS: Alanine Aminotransferase 64 IU/L (<35); Albumin 4.1 g/dL (3.5-5.0); Albumin Globulin Ratio 1.3 (1.0-2.8); Alkaline Phosphatase 130 U/L (38-126); Aspartate Aminotransferase 58 IU/L (14-36); BUN Creatinine Ratio 26.2 (6-22); Bilirubin Total 0.5 mg/dL (0.2-1.3); Blood Urea Nitrogen 17 mg/dL (7-17); Calcium 10.2 mg/dL (8.4-10.2); Carbon Dioxide 29 mmol/L (22-32); Chloride 106 mmol/L (98-107); Estimated Glomerular Filt Rate > 60 mL/min (>60); Globulin 3.1 g/dL (1.7-4.1); Glucose 87 mg/dL (80-110); HEMOLYSIS < 15 (0-50); Magnesium 1.9 mg/dL (1.6-2.3); Potassium 4.3 mmol/L (3.4-5.1); Sodium 138 mmol/L (137-145); Total Protein 7.2 g/dL (6.3-8.2)
[2023-05-05 13:58] LABS: Vitamin D 25 Hydroxy (D3) 46.9 ng/mL (30.0-100.0)
== END ==
LOC: LAB 12:12
PROVIDERS: Family Provider Family Medicine; PCP Family Medicine; Referring Provider Family Medicine; Visit Provider Family Medicine
DX: M54.50 Low back pain, unspecified (principal); M81.0 Age-related osteoporosis without current pathological fracture
CPT/HCPCS: 36415; 72100; 80053; 82306; 83735; 85025

== ENCOUNTER → 2023-05-08 16:21 | Outpatient (CLI) | payer OTHER, SELFPAY ==
--- NOTE | 2023-05-08 | DI.MG.S_ITS ---
BILATERAL DIGITAL SCREENING MAMMOGRAM 3D/2D WITH CAD: 05/08/2023 CLINICAL: Routine screening. Family history of breast cancer. Comparison is made to exams dated: 05/05/2022 mammogram, 04/01/2021 mammogram, and 03/31/2020 mammogram - [facility]. Both breasts are heterogeneously dense, which may obscure small masses (category c / 51-75% glandular tissue). Current study was also evaluated with a Computer Aided Detection (CAD) system. No significant masses, calcifications, or other findings are seen in either breast. There has been no significant interval change. IMPRESSION: NEGATIVE There is no mammographic evidence of malignancy. A 1 year screening mammogram is recommended. Based on the Tyrer Cuzick model (a risk assessment model) the patient's lifetime risk is 10.3% and her 10 year risk is 4.5%. According to the ACR, ACS, and NCCN guidelines, an annual breast MRI exam along with mammogram is recommended if the patient's lifetime risk is 20% or greater. This exam was interpreted at Station ID: [id number]. NOTE: For mammograms, a report in lay terms will be sent to the patient. Approximately 15% of breast malignancies will not be visualized mammographically. In the management of a palpable breast mass, a negative mammogram must not discourage biopsy of a clinically suspicious lesion. Electronically Signed By: Jose dillon/silvano:05/09/2023 11:22:44 letter sent: Normal Exam ACR BI-RADS Category 1: Negative [id number]
== END ==
PROVIDERS: Family Provider Family Medicine; PCP Family Medicine; Referring Provider Family Medicine; Visit Provider Family Medicine
DX: Z12.31 Encounter for screening mammogram for malignant neoplasm of breast (principal); Z80.3 Family history of malignant neoplasm of breast; R92.333 Mammographic heterogeneous density, bilateral breasts
CPT/HCPCS: 77063; 77067

== ENCOUNTER → 2023-06-01 12:36 | Outpatient (CLI) | payer OTHER, SELFPAY | PROVIDERS: Family Provider Family Medicine; PCP Family Medicine; Visit Provider Nurse Practitioner Family | DX: R39.15 Urgency of urination (principal) | CPT/HCPCS: 87077; 87086; 87210 ==

== ENCOUNTER → 2023-06-08 08:14 | Outpatient (CLI) | payer OTHER, SELFPAY | PROVIDERS: Family Provider Family Medicine; PCP Family Medicine; Visit Provider Nurse Practitioner Family | DX: R30.0 Dysuria (principal) | CPT/HCPCS: 87077; 87086; 87186 ==

== ENCOUNTER → 2023-06-30 11:52 | Outpatient (CLI) | payer OTHER, SELFPAY | PROVIDERS: Family Provider Family Medicine; PCP Family Medicine; Visit Provider Nurse Practitioner Family | DX: R30.0 Dysuria (principal) | CPT/HCPCS: 87086 ==

== ENCOUNTER → 2023-07-04 08:43 | Outpatient (CLI) | payer OTHER, SELFPAY ==
[2023-07-04 10:15] LABS: Influenza A - CEPHEID Flu A NEGATIVE (NEGATIVE); Influenza B - CEPHEID Flu B NEGATIVE (NEGATIVE); Respiratory Syncytial Virus Negative (Negative)
[2023-07-04 10:16] LABS: COVID-19 CEPHEID 4-PLEX PCR Negative (Negative)
== END ==
PROVIDERS: Family Provider Family Medicine; PCP Family Medicine; Visit Provider Physician Assistant Surgical
DX: R05.9 Cough, unspecified (principal)
CPT/HCPCS: 0241U

== ENCOUNTER → 2023-07-04 08:51 | Outpatient (CLI) | payer OTHER, SELFPAY ==
--- NOTE | 2023-07-04 08:53 | DI.RAD.S_ITS ---
PROCEDURE: XR CHEST 2V INDICATIONS: Cough, dyspnea, wheezing TECHNIQUE: 2 views of the chest were acquired. COMPARISON: None. FINDINGS: Surgical changes and devices: None. Lungs and pleura: Lungs are clear. No pleural effusions or pneumothorax. Mediastinum: Mediastinal contours are normal. Heart size is normal. Bones and chest wall: No suspicious bony abnormalities. Soft tissues appear unremarkable. IMPRESSION: No acute cardiopulmonary disease process. Dictated by: Junie Plascencia MD, PhD on 07/04/2023 at 9:11 Approved by: Junie Plascencia MD, PhD on 07/04/2023 at 9:13
== END ==
LOC: RAD 08:52
PROVIDERS: Family Provider Family Medicine; PCP Family Medicine; Referring Provider Physician Assistant Surgical; Visit Provider Physician Assistant Surgical
DX: R05.9 Cough, unspecified (principal)
CPT/HCPCS: 0241U; 71046

== ENCOUNTER → 2023-07-05 15:45 | Outpatient (CLI) | payer OTHER, SELFPAY ==
[2023-07-05 17:43] LABS: Appearance Urine UA SL CLOUDY; Bilirubin Urine UA NEGATIVE (NEGATIVE); Color Urine UA YELLOW; Glucose Urine UA NEGATIVE (Negative); Ketones Urine UA NEGATIVE (NEGATIVE); Leukocyte Esterase Urine UA 3+ (NEGATIVE); Nitrite Urine UA NEGATIVE (Negative); Occult Blood Urine UA TRACE-INTACT (Negative); Protein Urine UA NEGATIVE (Negative); Specific Gravity Urine UA <=1.005 (1.000-1.035); Urobilinogen Urine UA 0.2 E.U./dL (0.2)
[2023-07-05 17:54] LABS: Add Manual Diff / Slide Review NO; Basophils Absolute Auto 100 /uL (0-100); Basophils Percent Auto 2.1 % (0-2); Eosinophils Absolute Auto 100 /uL (0-450); Eosinophils Percent Auto 1.6 % (2-4); Hematocrit 37.9 % (36-46); Lymphocytes Absolute Auto 1800 /uL (1100-4500); Lymphocytes Percent Auto 32.1 % (25-40); Mean Corpuscular HGB Conc 34.3 % (30-36); Mean Corpuscular Hemoglobin 30.9 PG (26-34); Monocytes Absolute Auto 400 /uL (0-900); Neutrophils Absolute Auto 3100 /uL (1500-7000); Neutrophils Percent Auto 56.2 % (50-75); Platelet Count 198 X10^3/uL (150-400); Red Blood Cell Count 4.21 X10^6/uL (4.0-5.2); Red Cell Distribution Width 12.4 % (11.6-14.8); White Blood Cell Count 5.5 X10^3/uL (4.5-11.0)
[2023-07-05 17:55] LABS: Bacteria Urine Moderate (10-30); Culture Indicated Urine Specimen Cultured; RBC Urine 0-1/HPF (0-5/HPF); Squamous Epithelial Cell Urine 1-5 /HPF (0-5/HPF); Urine Volume 10mL (spun); WBC Urine 30-100/HPF (0-5/HPF)
[2023-07-05 18:16] LABS: Alanine Aminotransferase 49 IU/L (<35); Albumin 4.2 g/dL (3.5-5.0); Albumin Globulin Ratio 1.3 (1.0-2.8); Alkaline Phosphatase 128 U/L (38-126); Aspartate Aminotransferase 40 IU/L (14-36); BUN Creatinine Ratio 30.3 (6-22); Bilirubin Total 0.4 mg/dL (0.2-1.3); Blood Urea Nitrogen 23 mg/dL (7-17); Calcium 9.3 mg/dL (8.4-10.2); Carbon Dioxide 29 mmol/L (22-32); Chloride 105 mmol/L (98-107); Cholesterol 252 mg/dL (140-199); Creatine Kinase 87 U/L (30-135); Estimated Glomerular Filt Rate > 60 mL/min (>60); Globulin 3.2 g/dL (1.7-4.1); Glucose 107 mg/dL (80-110); HDL Cholesterol 57 mg/dL (40-60); HEMOLYSIS < 15 (0-50); LDL Cholesterol Calculated 153 mg/dL (<100); Potassium 3.9 mmol/L (3.4-5.1); Sodium 138 mmol/L (137-145); Total Protein 7.4 g/dL (6.3-8.2); Triglycerides 209 mg/dL (35-150)
[2023-07-05 18:27] LABS: Troponin I < 0.012 ng/mL (0.01-0.034)
== END ==
PROVIDERS: Nurse Practitioner Family; Family Provider Family Medicine; PCP Family Medicine; Referring Provider Family Medicine; Visit Provider Family Medicine
DX: R07.9 Chest pain, unspecified (principal); R30.0 Dysuria
CPT/HCPCS: 36415; 80053; 80061; 81001; 82550; 84484; 85025; 87077; 87086; 87186; 93005

== ENCOUNTER 2023-07-11 09:05 | Emergency (ER) | payer OTHER, SELFPAY ==
[2023-07-11] VITALS (17 sets, daily range): BP systolic 105–138; BP diastolic 55–98; PULSE 49–71; RESP 12–24; TEMP 36.3–36.7; O2SAT 96–100; BMI 20.1
--- NOTE | 2023-07-11 09:08 | ED_ITS ---
HPI - Chest Pain General Chief Complaint: Chest Pain Stated Complaint: Chest Tightness Time Seen by Provider: 07/11/23 09:07 History of Present Illness HPI narrative: 62-year-old female now day 4 of 7 day course of nitrofurantoin for recurrent urinary tract infection, complains of 1 week duration intermittent chest discomfort, no known coronary artery disease has had ongoing intermittent chest discomfort for the last week or so, awaiting outpatient stress test yet to be scheduled, ongoing cough with multiple clinic in self COVID test negative, using home inhaler. 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 She had not tried any specific medications to make the pain go away. Still having some chest pressure like symptoms, slightly decreased. During this week she has had intermittent similar episodes in quality, not particularly different with changes in position, no antacids tried, possible association with alendronate, which she has discontinued, started 3 weeks ago. Denies cardiac risk factors of diabetes, smoking, hypertension, family history, though she has hyperlipidemia. No previous cardiac stress testing known. No history of blood clots to legs or lungs, no leg pain or swelling symptoms. She thinks that off the alendronate there might be some improvement in the discomfort, but is still present and recurrent this morning. Related Data Home Medications Medication Instructions Recorded Confirmed D-fatuma PO 03/21/23 07/05/23 cranberry supplement PO 03/21/23 07/05/23 probiotic PO 03/21/23 07/05/23 Previous Rx's Medication Instructions Recorded lorazepam 0.5 mg tablet 0.5 mg PO Q8HP PRN anxiety #10 tabs 01/18/22 rizatriptan 10 mg disintegrating 10 mg PO QDAY PRN migraine 02/09/22 tablet headache #30 tabs inhalational spacing device #1 ea 05/18/22 (Aerochamber MV spacer) cyclobenzaprine 5 mg tablet 5 mg PO Q8H PRN muscle spasm #30 01/19/23 tabs estradiol 10 mcg vaginal tablet 10 mcg vaginal 2XW #30 tabs 01/25/23 (Vagifem) alendronate 70 mg tablet 70 mg PO QWEEK #12 tabs 05/26/23 albuterol sulfate 90 mcg/actuation 2 puff inhalation Q6H PRN 07/04/23 aerosol inhaler shortness of breath or wheezing #6.7 grams benzonatate 200 mg capsule 200 mg PO BID PRN cough #30 caps 07/04/23 ipratropium bromide 21 mcg (0.03 2 spray intranasal BID PRN nasal 07/04/23 %) nasal spray congestion #30 mL nitrofurantoin 100 mg PO BID 7 days #14 caps 07/07/23 monohydrate/macrocrystals 100 mg capsule Allergies Allergy/AdvReac Type Severity Reaction Status Date / Time Penicillins [PENICILLINS] Allergy Mild Rash Verified 07/11/23 09:22 Review of Systems Review of Systems Narrative: as per HPI Patient History Medical History Atrophic vaginitis Osteoarthritis Chronic UTI Basal cell carcinoma Hx of acute arthritis Pure hypercholesterolemia Ankle pain (2009) Chicken pox (1968) Anxiety (~2009) Migraines (1985) Distal radius fracture, left (2016) Surgical History History of endometrial ablation (2006) History of orthopedic surgery (2016) History of ankle surgery (~01/2010) Family History Father Heart disease High cholesterol Congestive heart failure Migraines Mother Age: 88 Atrial fibrillation Hypertension High cholesterol Sister Age: 63 High cholesterol Grandfather Stroke Heart problem Grandmother Ovarian cancer Cancer Migraines Grandfather Rheumatic fever Grandmother Diabetes mellitus Social History marital status: household members: none Smoking Status: Never smoker alcohol intake: current caffeine: Yes Type(s) of exercise: walking Smoking Status: Never smoker alcohol intake frequency: a few times a month Substance Use Type: does not use Exam Narrative Exam Narrative: GENERAL: Well-developed patient, in mild distress. Frequent coughing noted HEAD: Atraumatic. Normocephalic. EYES: Pupils equal round and reactive. Extraocular motions intact. No scleral icterus. No injection or drainage. ENT: Nose without bleeding, purulent drainage. Throat without erythema, tonsillar hypertrophy or exudate. Airway patent. NECK: Trachea midline. Non tender CARDIOVASCULAR: Regular rate and rhythm without murmurs, gallops, or rubs. RESPIRATORY: Clear to auscultation. Breath sounds equal bilaterally. No wheezes, rales, or rhonchi. GASTROINTESTINAL: Abdomen soft, non-tender, nondistended. EXTREMITIES: No edema or joint tenderness. BACK: Nontender without deformity or crepitance. No flank tenderness. NEURO: AOx3. SKIN: No rash or erythema of visible areas Initial Vital Signs Initial Vital Signs: Vital Signs Blood Pressure 138/65 07/11/23 09:13 Course Orders Ordered: ED Orders 07/11/23 12:25 Trop I [Troponin I] Stat Discontinued Medications Albuterol (Albuterol 2.5 Mg/3 Ml Neb (Adult)) 2.5 mg INH NOW ONE Stop: 07/11/23 09:46 Last Admin: 07/11/23 10:12 Dose: 2.5 mg Documented By: TIFFANY Aspirin (Aspirin 81 Mg Chew Tab) 324 mg PO NOW ONE Stop: 07/11/23 09:08 Last Admin: 07/11/23 09:19 Dose: 324 mg Documented By: DENIA Famotidine (Famotidine 20 Mg/2 Ml Vial) 20 mg IV NOW ONE Stop: 07/11/23 09:31 Last Admin: 07/11/23 09:41 Dose: 20 mg Documented By: DENIA Sodium Chloride (Normal Saline 0.9%) 1,000 mls @ 150 mls/hr IV CONT ZAYRA Last Infusion: 07/11/23 14:09 Dose: Infused Documented By: Admin: 07/11/23 09:19 Dose: 150 mls/hr Documented By: DENIA Nitroglycerin (Nitroglycerin 0.4 Mg Sl Tab) 0.4 mg SL [id number] PRN PRN Reason: Chest Pain Vital Signs Vital signs: Vital Signs - 8 hr 07/11/23 11:30 07/11/23 11:30 07/11/23 12:00 Temperature Pulse Rate 67 Respiratory Rate 16 Blood Pressure 105/55 L 105/57 L Pulse Oximetry 98 Oxygen Delivery Method 07/11/23 12:00 07/11/23 12:30 07/11/23 12:30 Temperature Pulse Rate 61 62 Respiratory Rate 18 16 Blood Pressure 116/59 L Pulse Oximetry 97 99 Oxygen Delivery Method 07/11/23 13:00 07/11/23 13:00 07/11/23 13:30 Temperature Pulse Rate 57 L 62 Respiratory Rate 18 18 Blood Pressure 109/56 L Pulse Oximetry 99 99 Oxygen Delivery Method 07/11/23 13:30 07/11/23 14:00 07/11/23 14:00 Temperature Pulse Rate 62 Respiratory Rate 24 Blood Pressure 119/61 133/68 Pulse Oximetry 100 Oxygen Delivery Method Room Air 07/11/23 14:13 Temperature 97.3 F L Pulse Rate Respiratory Rate Blood Pressure Pulse Oximetry Oxygen Delivery Method MDM - Chest Pain Lab Data Attestation: I reviewed the patient's lab results. 07/11/23 09:15 07/11/23 09:15 Labs: Lab Results 07/11/23 07/11/23 Range/Units 09:15 12:25 WBC 5.5 (4.5-11.0) X10^3/uL RBC 4.38 (4.0-5.2) X10^6/uL Hgb 13.6 (12.0-16.0) g/dL Hct 39.7 (36-46) % MCV 90.7 (80-100) fL MCH 31.2 (26-34) PG MCHC 34.4 (30-36) % RDW 12.7 (11.6-14.8) % Plt Count 174 (150-400) X10^3/uL Neut % (Auto) 59.1 (50-75) % Lymph % (Auto) 29.5 (25-40) % [place] % (Auto) 9.4 (3-14) % Eos % (Auto) 1.1 L (2-4) % Baso % (Auto) 0.9 (0-2) % Neut # (Auto) 3200 (8732-9988) /uL Lymph # (Auto) 1600 (1987-7099) /uL [place] # (Auto) 500 (0-900) /uL Eos # (Auto) 100 (0-450) /uL Baso # (Auto) 0 (0-100) /uL Sodium 138 (137-145) mmol/L Potassium 4.5 (3.4-5.1) mmol/L Chloride 104 (98-107) mmol/L Carbon Dioxide 32 (22-32) mmol/L BUN 17 (7-17) mg/dL Creatinine 0.69 (0.52-1.04) mg/dL Estimated GFR > 60 (>60) mL/min BUN/Creatinine Ratio 24.6 H (6-22) Glucose 93 (80-110) mg/dL Calcium 9.6 (8.4-10.2) mg/dL Total Bilirubin 0.4 (0.2-1.3) mg/dL AST 56 H (14-36) IU/L ALT 50 H (<35) IU/L Alkaline Phosphatase 127 H (38-126) U/L Total Creatine Kinase 67 (30-135) U/L Troponin I < 0.012 < 0.012 (0.01-0.034) ng/mL Total Protein 7.7 (6.3-8.2) g/dL Albumin 4.6 (3.5-5.0) g/dL Globulin 3.1 (1.7-4.1) g/dL Albumin/Globulin Ratio 1.5 (1.0-2.8) Lipase 107 (23-300) U/L Imaging Data Chest x-ray: Radiologist's Impression: [place] [address] XRay Report Signed Patient: Nancy Dickson MR#: [id number] : 1960 Acct:[id number] Age/Sex: 62 / F Date of Service: 07/11/23 Loc: Accession Number: [id number] Procedure: XR chest 1V Ordering Provider: Issac Ceron MD PROCEDURE: XR CHEST 1V INDICATIONS: chest pain TECHNIQUE: One view of the chest was acquired. COMPARISON: None. FINDINGS: Surgical changes and devices: None. Lungs and pleura: Lungs are clear. No pleural effusions or pneumothorax. Mediastinum: Mediastinal contours appear normal. Heart size is normal. Bones and chest wall: No suspicious bony lesions. Overlying soft tissues appear unremarkable. IMPRESSION: No acute cardiopulmonary abnormality is seen. Dictated by: Junie Plascencia MD, PhD on 07/11/2023 at 9:46 Approved by: Junie Plascencia MD, PhD on 07/11/2023 at 9:47 ECG Data Interpretation: Sinus bradycardia with rate of 57, upsloping ST segment early repolarization like pattern noted precordial leads. No ST segment depressions. [place] interval 248 prolonged, QRS 84, QTC 410. [facility] Narrative Medical decision making narrative: 62-year-old female with history of hyperlipidemia, on current oral antibiotic Macrobid for recurrent UTI, ongoing dry cough for a number of weeks despite use of inhaler, recently stopped her alendronate in case it was associated with her intermittent chest discomfort, now with chest pressure sensation for the last 1- 1/2 2 hours. Screening EKG without obvious ischemic changes, sinus bradycardia rate 57 noted. Labs and chest x-ray pending. Trial of SVN. P.o. aspirin given. IV Pepcid. Little response symptoms with SVN, sublingual nitroglycerin trial. Initial troponin negative, repeat interval troponin requested. Chest x-ray unremarkable Patient had resolved chest pain before nitroglycerin trial, not given, repeat interval troponin now. 1315, repeat interval troponin also unmeasurable negative. We will contact PCP regarding follow up in timing of planned stress testing. 1400, case discussed with PCP [place], agrees with trial of albuterol and antacid while awaiting outpatient cardiac stress testing, they are still awaiting insurance authorization, doubts emergent need inpatient at this time. Case discussed with the patient, agrees with plan. Critical Care Time Critical Care Time Critical Care Time: Yes Total Critical Care Time: 31 Attestation: The high probability of a clinically significant, sudden or life threatening deterioration of the [cardiopulmonary] system(s) required my full and direct attention, intervention and personal management. The aggregate critical care time was [31] minutes. This time is in addition to time spent performing reported procedures but includes the following: [x] Data Review and interpretation [x] Patient assessment and monitoring of vital signs [x] Documentation [x] Medication orders and management Discharge Plan Departure Patient Disposition: Home Clinical Impression: Chest pain Activity Restrictions/Additional Instructions: Ongoing intermittent chest discomfort, awaiting outpatient cardiac stress testing, ongoing cough, using home inhaler, some response to breathing treatment in the emergency department, antacid IV Pepcid also given, chest discomfort resolved, EKG and serial blood test not suggestive of heart attack at this time. Case discussed with your regular doctor Kurt, awaiting outpatient cardiac stress test authorization, suggest continued use your inhaler, suggests a couple of weeks use of omeprazole [id number] antacid once daily, while awaiting your stress testing. Return to this/nearest emergency department for any change worsening symptoms or any concerns prior Prescriptions: No Action (DME) Aerochamber MV Spacer See Rx Instructions .ROUTE .MEDSUPPLY Qty: 1 0RF Rx Instructions: As directed cranberry supplement PO probiotic PO D-fatuma PO benzonatate 200 mg capsule 200 mg PO BID PRN (Reason: cough) Qty: 30 0RF ipratropium bromide 21 mcg (0.03 %) spray,non-aerosol 2 spray intranasal BID PRN (Reason: nasal congestion) Qty: 30 0RF Rx Instructions: administer into each nostril lorazepam 0.5 mg tablet 0.5 mg PO Q8HP PRN (Reason: anxiety) Qty: 10 0RF rizatriptan 10 mg tablet,disintegrating 10 mg PO QDAY PRN (Reason: migraine headache) Qty: 30 1RF cyclobenzaprine 5 mg tablet 5 mg PO Q8H PRN (Reason: muscle spasm) Qty: 30 2RF estradiol [Vagifem] 10 mcg tablet 10 mcg vaginal 2XW Qty: 30 2RF alendronate 70 mg tablet 70 mg PO QWEEK Qty: 12 3RF albuterol sulfate 90 mcg/actuation HFA aerosol inhaler 2 puff inhalation Q6H PRN (Reason: shortness of breath or wheezing) Qty: 6.7 0RF nitrofurantoin monohyd/m-cryst 100 mg capsule 100 mg PO BID 7 Days Qty: 14 0RF Rx Instructions: must administer with a meal/food Referrals: Olivia Borjas MD [Primary Care Provider] - Stand Alone Forms: Patient Portal/API
[2023-07-11] MEDS: SODIUM CHLORIDE 0.9% 1,000 ML 150 ML IV (09:19)
[2023-07-11] MEDS: ASPIRIN 81 MG CHEW TAB 324 MG PO (09:19)
[2023-07-11 09:27] LABS: Add Manual Diff / Slide Review NO; Basophils Absolute Auto 0 /uL (0-100); Basophils Percent Auto 0.9 % (0-2); Eosinophils Absolute Auto 100 /uL (0-450); Eosinophils Percent Auto 1.1 % (2-4); Hematocrit 39.7 % (36-46); Hemoglobin 13.6 g/dL (12.0-16.0); Lymphocytes Absolute Auto 1600 /uL (1100-4500); Lymphocytes Percent Auto 29.5 % (25-40); Mean Corpuscular HGB Conc 34.4 % (30-36); Mean Corpuscular Hemoglobin 31.2 PG (26-34); Mean Corpuscular Volume 90.7 fL (80-100); Monocytes Absolute Auto 500 /uL (0-900); Monocytes Percent Auto 9.4 % (3-14); Neutrophils Absolute Auto 3200 /uL (1500-7000); Neutrophils Percent Auto 59.1 % (50-75); Platelet Count 174 X10^3/uL (150-400); Red Blood Cell Count 4.38 X10^6/uL (4.0-5.2); Red Cell Distribution Width 12.7 % (11.6-14.8); White Blood Cell Count 5.5 X10^3/uL (4.5-11.0)
--- NOTE | 2023-07-11 09:36 | PC.NURSE ---
Intermittent CP x1 week; cough; some sputum; currently on antibiotic for (chronic?) UTI
[2023-07-11] MEDS: FAMOTIDINE 20 MG/2 ML VIAL IV (09:41)
[2023-07-11 09:42] LABS: Alanine Aminotransferase 50 IU/L (<35); Albumin 4.6 g/dL (3.5-5.0); Albumin Globulin Ratio 1.5 (1.0-2.8); Alkaline Phosphatase 127 U/L (38-126); Aspartate Aminotransferase 56 IU/L (14-36); BUN Creatinine Ratio 24.6 (6-22); Bilirubin Total 0.4 mg/dL (0.2-1.3); Blood Urea Nitrogen 17 mg/dL (7-17); Calcium 9.6 mg/dL (8.4-10.2); Carbon Dioxide 32 mmol/L (22-32); Chloride 104 mmol/L (98-107); Creatine Kinase 67 U/L (30-135); Estimated Glomerular Filt Rate > 60 mL/min (>60); Globulin 3.1 g/dL (1.7-4.1); Glucose 93 mg/dL (80-110); HEMOLYSIS < 15 (0-50); Lipase 107 U/L (23-300); Potassium 4.5 mmol/L (3.4-5.1); Sodium 138 mmol/L (137-145); Total Protein 7.7 g/dL (6.3-8.2)
[2023-07-11 09:53] LABS: Troponin I < 0.012 ng/mL (0.01-0.034)
[2023-07-11] MEDS: ALBUTEROL 2.5 MG/3 ML NEB (ADULT) INH (10:12)
[2023-07-11 13:12] LABS: Troponin I < 0.012 ng/mL (0.01-0.034)
== END 2023-07-11 14:22 | disposition home or self-care (01) ==
PROVIDERS: Emergency Provider Emergency Medicine; Family Provider Family Medicine; PCP Family Medicine
DX: R07.9 Chest pain, unspecified (principal); R00.1 Bradycardia, unspecified
CPT/HCPCS: 36415; 71045; 80053; 82550; 83690; 84484; 85025; 93005; 94640; 96361; 96374; 99284; J7613

== ENCOUNTER → 2023-07-15 19:53 | Outpatient (ROUT) | payer OTHER, SELFPAY | PROVIDERS: Family Provider Family Medicine; PCP Family Medicine; Visit Provider Nurse Practitioner Family | DX: R30.0 Dysuria (principal) | CPT/HCPCS: 87086; 87210 ==

== ENCOUNTER → 2023-07-21 07:15 | Outpatient (CLI) | payer OTHER, SELFPAY ==
--- NOTE | 2023-07-21 07:16 | DI.US.S_ITS ---
PROCEDURE: US ABDOMEN LIMITED INDICATIONS: ABNORMAL LIVER ENZYMES TECHNIQUE: Real-time scanning was performed of the abdominal and retroperitoneal organs, with image documentation. COMPARISON: [facility], CT, CT IVP A/P W/WO, 04/19/2023, 15:18. FINDINGS: Liver: Liver is normal in size and mildly increased in echogenicity. Gallbladder: No gallstones. No wall thickening. No pericholecystic edema. Negative sonographic Edgroot's sign. Biliary ducts: Intrahepatic bile ducts are non-dilated. Extrahepatic bile duct caliber measures 4.1 mm. Normal is 6-7 mm or less in diameter, or 10 mm or less post-cholecystectomy. Pancreas: Visualized portions of the pancreas are sonographically normal. Miscellaneous: No free abdominal fluid. IMPRESSION: Liver is mildly increased echogenicity, most consistent with hepatic steatosis. Dictated by: Binh Chapa M.D. on 07/21/2023 at 11:28 Approved by: Binh Chapa M.D. on 07/21/2023 at 11:37
--- NOTE | 2023-07-21 08:33 | DI.NM.S_ITS ---
DATE OF SERVICE: 07/21/2023 PROCEDURE: Exercise treadmill stress test without imaging. ORDERING PROVIDER: Olivia Borjas MD. INDICATIONS: The patient is a 62-year-old female with atypical chest discomfort. FINDINGS: 1. The patient was able to exercise for 11 minutes 16 seconds on a standard Amrik protocol, suggesting exceptional exercise capacity with an ZENON of -69%, achieving 12.8 METs. 2. She had a normal heart rate and blood pressure response to exercise, achieving a maximum heart rate of 159 BPM (101% of her predicted maximum). 3. She had no chest discomfort or other anginal symptoms. 4. Her resting ECG showed sinus rhythm with normal ST segments. There were no significant ST-segment shifts or arrhythmias with stress. IMPRESSION: 1. Normal exercise treadmill stress test for ischemia. 2. Exceptional exercise capacity without angina or arrhythmias. dd: 07/21/2023 16:18:00 dt DICTATING MD/COPIES TO: Marquis Mancia MD
--- NOTE | 2023-07-28 10:40 | DI.NM.S_ITS ---
DATE OF SERVICE: 07/21/2023 PROCEDURE: Exercise treadmill stress test without imaging. ORDERING PROVIDER: Olivia Borjas MD. INDICATIONS: The patient is a 62-year-old female with atypical chest discomfort. FINDINGS: 1. The patient was able to exercise for 11 minutes 16 seconds on a standard Amrik protocol, suggesting exceptional exercise capacity with an ZENON of -69%, achieving 12.8 METs. 2. She had a normal heart rate and blood pressure response to exercise, achieving a maximum heart rate of 159 BPM (101% of her predicted maximum). 3. She had no chest discomfort or other anginal symptoms. 4. Her resting ECG showed sinus rhythm with normal ST segments. There were no significant ST-segment shifts or arrhythmias with stress. IMPRESSION: 1. Normal exercise treadmill stress test for ischemia. 2. Exceptional exercise capacity without angina or arrhythmias. Nancy Dickson - YONATAN/roberto carlos/[place] doc#: [id number]/job#: [id number] dd: 07/21/2023 16:18:00 dt: 07/21/2023 18:20:00 DICTATING MD/COPIES TO: Marquis Mancia MD; Olivia Borjas MD COPIES MNE: FABBY;
== END ==
PROVIDERS: Family Provider Family Medicine; PCP Family Medicine; Referring Provider Family Medicine; Visit Provider Family Medicine
DX: R07.9 Chest pain, unspecified (principal); R74.8 Abnormal levels of other serum enzymes
CPT/HCPCS: 76705; 93017

== ENCOUNTER → 2023-09-07 12:56 | Outpatient (CLI) | payer OTHER, SELFPAY ==
[2023-09-07 16:37] LABS: Vitamin D 25 Hydroxy (D3) 43.1 ng/mL (30.0-100.0)
[2023-09-09 23:35] LABS: Calcium 9.7 mg/dL (8.7-10.3); Parathyroid Hormone, Intact 29 pg/mL (15-65)
== END ==
PROVIDERS: Family Provider Family Medicine; PCP Family Medicine; Referring Provider Family Medicine; Visit Provider Family Medicine
DX: M81.0 Age-related osteoporosis without current pathological fracture (principal)
CPT/HCPCS: 36415; 82306; 82310; 83970

== ENCOUNTER → 2023-09-18 15:20 | Outpatient (CLI) | payer OTHER, SELFPAY | PROVIDERS: Family Provider Family Medicine; PCP Family Medicine; Visit Provider Urology | DX: N39.0 Urinary tract infection, site not specified (principal); N95.2 Postmenopausal atrophic vaginitis | CPT/HCPCS: 51798; 81002; 87086; 99214 ==

== ENCOUNTER → 2023-10-03 13:30 | Outpatient (CLI) | payer OTHER, SELFPAY ==
[2023-10-03 14:03] LABS: Estimated Glomerular Filt Rate > 60 mL/min (>60)
== END ==
LOC: LAB 13:32
PROVIDERS: Family Provider Family Medicine; PCP Family Medicine; Referring Provider Family Medicine; Visit Provider Family Medicine
DX: Z01.812 Encounter for preprocedural laboratory examination (principal)
CPT/HCPCS: 36415; 82565

== ENCOUNTER → 2023-11-30 13:15 | Outpatient (CLI) | payer OTHER, SELFPAY ==
[2023-11-30 14:25] LABS: Add Manual Diff / Slide Review NO; Basophils Absolute Auto 200 /uL (0-100); Basophils Percent Auto 2.9 % (0-2); Eosinophils Absolute Auto 100 /uL (0-450); Eosinophils Percent Auto 0.9 % (2-4); Hematocrit 39.8 % (36-46); Hemoglobin 13.4 g/dL (12.0-16.0); Lymphocytes Absolute Auto 1600 /uL (1100-4500); Mean Corpuscular HGB Conc 33.7 % (30-36); Mean Corpuscular Hemoglobin 30.9 PG (26-34); Mean Corpuscular Volume 91.8 fL (80-100); Monocytes Absolute Auto 400 /uL (0-900); Monocytes Percent Auto 6.6 % (3-14); Neutrophils Absolute Auto 3400 /uL (1500-7000); Neutrophils Percent Auto 60.6 % (50-75); Platelet Count 172 X10^3/uL (150-400); Red Blood Cell Count 4.34 X10^6/uL (4.0-5.2); Red Cell Distribution Width 13.3 % (11.6-14.8); White Blood Cell Count 5.7 X10^3/uL (4.5-11.0)
[2023-11-30 15:17] LABS: Thyroid Stimulating Hormone 0.058 uIU/mL (0.47-4.68)
[2023-11-30 15:35] LABS: Vitamin B12 621 pg/mL (239-931)
== END ==
PROVIDERS: Family Provider Family Medicine; PCP Family Medicine; Referring Provider Family Medicine; Visit Provider Family Medicine
DX: G57.92 Unspecified mononeuropathy of left lower limb (principal)
CPT/HCPCS: 36415; 82607; 84443; 85025

== ENCOUNTER 2024-02-26 16:15 | Outpatient (RCR) | payer OTHER, SELFPAY ==
--- NOTE | 2023-11-07 17:27 | PT.OIE ---
Current Diagnoses Pain in unspecified hip (11/07/23) Pain in right knee (11/07/23) Low back pain, unspecified (11/07/23) Difficulty in walking, not elsewhere classified (11/07/23) Abnormal posture (11/07/23) Weakness (11/07/23) Past Medical History (Last Reviewed 05/04/23 @ 07:54 by Nataly He PA-C) Ankle pain (2009) Anxiety (~2009) Atrophic vaginitis Basal cell carcinoma Chicken pox (1968) Chronic UTI Distal radius fracture, left (2016) Hx of acute arthritis Migraines (1985) Osteoarthritis Pure hypercholesterolemia Past Surgical History (Last Reviewed 05/04/23 @ 07:54 by Nataly He PA-C) History of ankle surgery (~01/2010) History of endometrial ablation (2006) History of orthopedic surgery (2016) Visit Care Team Role Provider Type Olivia Borjas MD Attending Provider Physician Family Provider Primary Care Provider Referring Provider Specialty: [facility] Practice Address: [address] [place] [address], [facility] Email: [email or web address] Physical Therapy Initial Evaluation PT-OP-A Visit Information Start: 11/02/23 17:40 Freq: Status: Active Protocol: Document 11/07/23 09:06 [facility] (Rec: 11/07/23 09:50 [facility] [id number]) Out-Patient Physical Therapy Visit Information Visit Information Visit Type Initial Evaluation Visit Note 60 visits per year Visit Start Time 09:05 Visit Stop Time 09:48 Visit Number 1 Number of PROGRAM CHECKER Visits 0 Precautions Precautions hx of sacral ala fx earlier this year PT-OP-B Current Condition Start: 11/02/23 17:40 Freq: Status: Active Protocol: Document 11/07/23 09:06 [facility] (Rec: 11/07/23 09:50 [facility] [id number]) Current Condition History of Current Condition Onset Date spring, about 1 year ago, late summer Current Complaints back pain, L foot numbness, R buttocks to HS History of Current Condition Pt reports they found an insufficency fx found in the Spring but does not note any incident that caused it. When she is leaning at the sink, she gets a tiny sharp pain in R buttocks. L foot MT pad is numb and toes can become numb feeling when walking. hx of R ankle sx year ago arthorscopic to clean up jt after childhood injury. Pt reports pain down leg. Does okay if walking flat, or slight incline, but if have to go up steep hill and feels like R glute grabs and goes down to HS. She has dx of osteoporosis . Started [employer] program (gets 4 exercises a week). She is on week 5. Driving is painful for LB and R leg. Has had 2 falls this year, slipping and falling in back yard but didn't notice any pain associated with it. this was after she already had dx. Does see doctor tomorrow. Pt reports R ant knee pain with up/down stairs and hills. This has been for years. Did have feet looked at and got special sneakers and MT pad. R hip is waking her up at 3 am in the AM. Pt reports does have a fatty liver (just barely) Prior Treatments and Tests CT: IMPRESSION: No nephrolithiasis or filling defects within the opacified renal collecting system or ureters. Right sacral ala insufficiency fracture. A few pulmonary micro nodules in the lung bases. Consider 12 month follow-up if at high risk for developing lung cancer, per Fleischner Society guidelines. Treatment Goals Patient/Caregiver Goals be able to hike/do uneven terrain, what exercises safety frias to stay away from vs do, Be able to drive and feel comfortable (cannot drive greater than 30 min w/o significant pain), be able to kayak PT-OP-C Subjective Start: 11/02/23 17:40 Freq: Status: Active Protocol: Document 11/07/23 09:06 [facility] (Rec: 11/07/23 12:03 [facility] [id number]) Patient Questionnaires Lower Extremity Functional Scale LEFS Score 40/80 Oswestry Low Back Index Oswestry Score 12/50; 24% PT-OP-D Balance Start: 11/02/23 17:40 Freq: Status: Active Protocol: Document 11/07/23 09:06 [facility] (Rec: 11/07/23 09:50 [facility] [id number]) Balance Tests Single Limb Standing Single Limb- Right L trunk rot, hip drop >30 sec Single Limb- Left 12 sec R trunk rot PT-OP-G Mobility & Gait Start: 11/02/23 17:40 Freq: Status: Active Protocol: Document 11/07/23 09:06 [facility] (Rec: 11/07/23 09:50 [facility] [id number]) OP Gait Assessment Comments Gait Comments dec trunk motion, dec UE swing , harder landing on RLE PT-OP-J Posture/Palpation/Skin Start: 11/02/23 17:40 Freq: Status: Active Protocol: Document 11/07/23 09:06 [facility] (Rec: 11/07/23 09:50 [facility] [id number]) Posture Evaluation Melinda Postural Classification System Melinda Postural Classifications Posterior/Anterior Lumbar Protective Mechanism Left AP 0 Lumbar Protective Mechanism Right AP 0 Lumbar Protective Mechanism Left PA 1 Lumbar Protective Mechanism Right PA 1 Comments Posture Comments L shoulder sit higher, slight scoliotic curve more notable in thoracic and kyphosis, R iliac crest higher and R pelvic shear, equal trochanter heights, L trunk rot PT-OP-K Range of Motion Start: 11/02/23 17:40 Freq: Status: Active Protocol: Document 11/07/23 09:06 [facility] (Rec: 11/07/23 09:50 [facility] [id number]) Ankle and Foot Goniometric Range of Motion Ankle and Foot ROM Limitations Comments 4 in to wall but knee goes more med on R PT-OP-L Special Tests Start: 11/02/23 17:40 Freq: Status: Active Protocol: Document 11/07/23 09:06 [facility] (Rec: 11/07/23 09:50 [facility] [id number]) Special Tests Lumbar Spine Special Tests Straight Leg Raise Test Results positive B Slump Test Results positive B PT-OP-M Strength Start: 11/02/23 17:40 Freq: Status: Active Protocol: Document 11/07/23 09:06 [facility] (Rec: 11/07/23 09:50 [facility] [id number]) Hip Strength Hip Manual Muscle Testing Right Flexion (L2) 3+ Fair+ Extension (S1) 3+ Fair+ Abduction 3+ Fair+ Adduction 3+ Fair+ External Rotation 4 Good Internal Rotation 4- Good- Left Flexion (L2) 3+ Fair+ Extension (S1) 3+ Fair+ Abduction 4- Good- Adduction 3+ Fair+ External Rotation 4- Good- Internal Rotation 4 Good Comments pain in R glute w/L ext Knee Strength Knee Manual Muscle Testing Right Flexion (S2) 5 Normal Extension (L3) 4+ Good+ Left Flexion (S2) 5 Normal Extension (L3) 5 Normal Ankle/Foot Strength Ankle and Foot Manual Muscle Testing Right Dorsiflexion (L4) 4+ Good+ Plantarflexion (S1) 5 Normal Comments 20 heel raises- pain in calf, foot and buttocks Left Dorsiflexion (L4) 5 Normal Plantarflexion (S1) 5 Normal Comments 20 heel raises- pain lat hip and foot PT-OP-Q Treatments Start: 11/02/23 17:40 Freq: Status: Active Protocol: Document 11/07/23 09:06 [facility] (Rec: 11/07/23 12:03 [facility] [id number]) Self-Care/Home Management Treatment Education Other Education 12 min: Edu re: findings of eval re: pelvis height and how she impacts more on R side. Discussed how will have to be cautious w/osteoporosis and w/ hx of sacral ala fx but likely pain is related to pelvis position along w/nerve tension found on BLEs w/Slump and SLR . Edu re: her current postural changes; discussed how visceral ligamentous and fascial restrictions may be affecting her pain. PT-OP-T Assessment and Plan Start: 11/02/23 17:40 Freq: Status: Active Protocol: Document 11/07/23 09:06 [facility] (Rec: 11/07/23 09:50 [facility] [id number]) Physical Therapy Assessment Rehab Potential Rehabilitation Potential Good Evaluation Complexity Number of Personal Factors/Comorbidities 3 or More Number of Body Systems Impaired 4 or More Clinical Presentation at Evaluation Evolving Impairments Impairments Activity Tolerance,Balance, Functional Activities, Functional Mobility,Gait,Pain, Posture,ROM,Soft Tissue Mobility,Strength Goals balance Billiard Player Goal (LTG) Pt will be able to do SLS B for 30 sec w/o hip drop or trunk rot LTG Duration 01/06 activity Short Term Goal (STG) Pt will be able to drive 1 hour w/o significant pain in back and leg. STG Duration 12/21 [facility] Goal (LTG) Pt will be able to hike hills and uneven terrain w/o inc pain in back, leg or knee. LTG Duration 01/15 strength Short Term Goal (STG) Pt will be indep w/HEP STG Duration 12/09 Billiard Player Goal (LTG) Pt will score at least 3/5 on LPM in all planes and at least 4+/5 on all BLE MMT to show improved strength to improve ease w/typical mobility. LTG Duration 01/15 LEFS Impairment 40 Short Term Goal (STG) Pt will improve LEFS score to at least 50 to show improved functional ability. STG Duration 12/09 Billiard Player Goal (LTG) Pt will improve LEFS score to at least 60 to show improved functional ability. LTG Duration 01/15 Assessment Summary Assessment Pt presents w/LBP, R glute pain w/radiating post thigh pain and L foot numbness. The back and RLE pain started over spring and summer this year but the L foot numbness started about a year ago. She does have osteoporosis and did have a finding in CT for sacral ala fx this past spring but pt did not have LIZA. 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 Pt would benefit from PT including gentle stretches, balance, core, and LE strengthening and postural stability in order to dec pain. Physical Therapy Plan Frequency and Duration Frequency of Treatment 2x/Week Duration of treatment (weeks) 10 Plan of Care Start Date 11/07/23 Plan of Care End Date 01/16/24 Therapeutic Interventions Therapeutic Interventions Balance Training,Home Exercise Program,Joint Mobilizations, Manual Therapy,Neuromuscular Re-education,Patient/Caregiver Education,Self-Care/Home Management,Soft Tissue Mobilization,Taping, Therapeutic Activities, Therapeutic Exercises Modalities Cold Pack/Ice Massage,Electric Stimulation,Hot Packs, Infrared Therapy,Ultrasound Next Visit Focus/Plan Next Note Type Treatment Note Next Visit Plan avoid mobs until hear from MD; only manual permited to LE ( avoid hip, pelvis and SI) d/t hx of sacral ala fx. R foot mobs for improved knee tracking, visceral fascial mobs including around liver HEP: sit to stands, bridges, supine core, sidesteps, piriformis stretches, sciatic n glide
--- NOTE | 2023-11-13 08:28 | PT-OP ANOTE ---
Message from provider: Thanks for getting in touch. I think you should be okay to do massage/gentle treatment on her pelvis. Dr Borjas
--- NOTE | 2023-11-13 09:51 | PT.OTN ---
Current Diagnoses Pain in unspecified hip (11/13/23) Pain in right knee (11/13/23) Low back pain, unspecified (11/13/23) Difficulty in walking, not elsewhere classified (11/13/23) Abnormal posture (11/13/23) Weakness (11/13/23) Physical Therapy Treatment Note PT-OP-A Visit Information Start: 11/02/23 17:40 Freq: Status: Active Protocol: Document 11/13/23 08:59 [facility] (Rec: 11/13/23 09:50 [facility] [id number]) Out-Patient Physical Therapy Visit Information Visit Information Visit Type Treatment Note Visit Note 60 visits per year Visit Start Time 09:02 Visit Stop Time 09:44 Visit Number 2 Number of GEODETIC SURVEYOR Visits 0 PT-OP-B Current Condition Start: 11/02/23 17:40 Freq: Status: Active Protocol: Document 11/07/23 09:06 [facility] (Rec: 11/07/23 09:50 [facility] [id number]) Current Condition History of Current Condition Onset Date spring, about 1 year ago, late summer Current Complaints back pain, L foot numbness, R buttocks to HS History of Current Condition Pt reports they found an insufficency fx found in the Spring but does not note any incident that caused it. When she is leaning at the sink, she gets a tiny sharp pain in R buttocks. L foot MT pad is numb and toes can become numb feeling when walking. hx of R ankle sx year ago arthorscopic to clean up jt after childhood injury. Pt reports pain down leg. Does okay if walking flat, or slight incline, but if have to go up steep hill and feels like R glute grabs and goes down to HS. She has dx of osteoporosis . Started [facility] bones program (gets 4 exercises a week). She is on week 5. Driving is painful for LB and R leg. Has had 2 falls this year, slipping and falling in back yard but didn't notice any pain associated with it. this was after she already had dx. Does see doctor tomorrow. Pt reports R ant knee pain with up/down stairs and hills. This has been for years. Did have feet looked at and got special sneakers and MT pad. R hip is waking her up at 3 am in the AM. Pt reports does have a fatty liver (just barely) Prior Treatments and Tests CT: IMPRESSION: No nephrolithiasis or filling defects within the opacified renal collecting system or ureters. Right sacral ala insufficiency fracture. A few pulmonary micro nodules in the lung bases. Consider 12 month follow-up if at high risk for developing lung cancer, per Fleischner Society guidelines. Treatment Goals Patient/Caregiver Goals be able to hike/do uneven terrain, what exercises safety frias to stay away from vs do, Be able to drive and feel comfortable (cannot drive greater than 30 min w/o significant pain), be able to kayak PT-OP-C Subjective Start: 11/02/23 17:40 Freq: Status: Active Protocol: Document 11/13/23 08:59 [facility] (Rec: 11/13/23 09:50 [facility] [id number]) OP-PT Subjective Patient Comments Patient Comments pt reports last 2 nights didn' t wake at 3 am PT-OP-D Balance Start: 11/02/23 17:40 Freq: Status: Active Protocol: Document 11/07/23 09:06 [facility] (Rec: 11/07/23 09:50 [facility] [id number]) Balance Tests Single Limb Standing Single Limb- Right L trunk rot, hip drop >30 sec Single Limb- Left 12 sec R trunk rot PT-OP-G Mobility & Gait Start: 11/02/23 17:40 Freq: Status: Active Protocol: Document 11/07/23 09:06 [facility] (Rec: 11/07/23 09:50 [facility] [id number]) OP Gait Assessment Comments Gait Comments dec trunk motion, dec UE swing , harder landing on RLE PT-OP-J Posture/Palpation/Skin Start: 11/02/23 17:40 Freq: Status: Active Protocol: Document 11/07/23 09:06 [facility] (Rec: 11/07/23 09:50 [facility] [id number]) Posture Evaluation Melinda Postural Classification System Melinda Postural Classifications Posterior/Anterior Lumbar Protective Mechanism Left AP 0 Lumbar Protective Mechanism Right AP 0 Lumbar Protective Mechanism Left PA 1 Lumbar Protective Mechanism Right PA 1 Comments Posture Comments L shoulder sit higher, slight scoliotic curve more notable in thoracic and kyphosis, R iliac crest higher and R pelvic shear, equal trochanter heights, L trunk rot PT-OP-K Range of Motion Start: 11/02/23 17:40 Freq: Status: Active Protocol: Document 11/07/23 09:06 [facility] (Rec: 11/07/23 09:50 [facility] [id number]) Ankle and Foot Goniometric Range of Motion Ankle and Foot ROM Limitations Comments 4 in to wall but knee goes more med on R PT-OP-L Special Tests Start: 11/02/23 17:40 Freq: Status: Active Protocol: Document 11/07/23 09:06 [facility] (Rec: 11/07/23 09:50 [facility] [id number]) Special Tests Lumbar Spine Special Tests Straight Leg Raise Test Results positive B Slump Test Results positive B PT-OP-M Strength Start: 11/02/23 17:40 Freq: Status: Active Protocol: Document 11/07/23 09:06 [facility] (Rec: 11/07/23 09:50 [facility] [id number]) Hip Strength Hip Manual Muscle Testing Right Flexion (L2) 3+ Fair+ Extension (S1) 3+ Fair+ Abduction 3+ Fair+ Adduction 3+ Fair+ External Rotation 4 Good Internal Rotation 4- Good- Left Flexion (L2) 3+ Fair+ Extension (S1) 3+ Fair+ Abduction 4- Good- Adduction 3+ Fair+ External Rotation 4- Good- Internal Rotation 4 Good Comments pain in R glute w/L ext Knee Strength Knee Manual Muscle Testing Right Flexion (S2) 5 Normal Extension (L3) 4+ Good+ Left Flexion (S2) 5 Normal Extension (L3) 5 Normal Ankle/Foot Strength Ankle and Foot Manual Muscle Testing Right Dorsiflexion (L4) 4+ Good+ Plantarflexion (S1) 5 Normal Comments 20 heel raises- pain in calf, foot and buttocks Left Dorsiflexion (L4) 5 Normal Plantarflexion (S1) 5 Normal Comments 20 heel raises- pain lat hip and foot PT-OP-Q Treatments Start: 11/02/23 17:40 Freq: Status: Active Protocol: Document 11/13/23 08:59 [facility] (Rec: 11/13/23 09:50 [facility] [id number]) Therapeutic Exercises Supine Exercises n glide Supine Exercise Name knee ext w/ankle pump Side bilateral Reps/Minutes 8 ea LTR Side bilateral Reps/Minutes 10 ea Comments cues core to pull legs back up bridge Side bilateral Reps/Minutes 12 Comments cues segmental stretch Supine Exercise Name piriformis Side bilateral Reps/Minutes 30 sec Sitting Exercises sciatic n glide Side bilateral Reps/Minutes 8 ea stretch Sitting Exercise Name piriformis Side bilateral Reps/Minutes 60 sec ea Standing Exercises sit to stand Side bilateral Reps/Minutes 10 Comments no hands cues control sidesteps Side bilateral Equipment Used L2 Reps/Minutes 2x10ft Comments cues posture Manual Therapy Treatment Consent Patient gave verbal consent for manual Yes treatment Soft Tissue Mobilization HS Body Location R Mobilization Type Rolling,Sustained Pressure Intensity/Depth Moderate Body Position Supine Comments w/AAROM hip flex and active n glide glute Body Location R>L glute and piriformis Mobilization Type Rolling,Sustained Pressure Intensity/Depth Moderate Body Position Sidelying Comments w/IR Joint Mobilizations hip Joint R inf c/r Grade II PT-OP-T Assessment and Plan Start: 11/02/23 17:40 Freq: Status: Active Protocol: Document 11/13/23 08:59 [facility] (Rec: 11/13/23 09:50 [facility] [id number]) Physical Therapy Assessment Goals balance Group Home Goal (LTG) Pt will be able to do SLS B for 30 sec w/o hip drop or trunk rot LTG Duration 01/06 activity Short Term Goal (STG) Pt will be able to drive 1 hour w/o significant pain in back and leg. STG Duration 12/21 Group Home Goal (LTG) Pt will be able to hike hills and uneven terrain w/o inc pain in back, leg or knee. LTG Duration 01/15 strength Short Term Goal (STG) Pt will be indep w/HEP STG Duration 12/09 [employer] Safety Associate Goal (LTG) Pt will score at least 3/5 on LPM in all planes and at least 4+/5 on all BLE MMT to show improved strength to improve ease w/typical mobility. LTG Duration 01/15 LEFS Impairment 40 Short Term Goal (STG) Pt will improve LEFS score to at least 50 to show improved functional ability. STG Duration 12/09 Product Safety Associate Goal (LTG) Pt will improve LEFS score to at least 60 to show improved functional ability. LTG Duration 01/15 Assessment Summary Assessment Pt did well with exercises today w/o c/o inc pain. Inc cues needed for form initially , but pt follows cues well. Tension in hip and HS significant but does release w /manual Physical Therapy Plan Frequency and Duration Frequency of Treatment 2x/Week Duration of treatment (weeks) 10 Plan of Care Start Date 11/07/23 Plan of Care End Date 01/16/24 Next Visit Focus/Plan Next Note Type Treatment Note Next Visit Plan per MD: only gentle massage and gentle treatment to pelvis region RLE manual for neural mobility , STM gentle to piriformis and along spine B, very gentle MET (avoid direct pelvis mobs) ,R foot mobs for improved knee tracking, visceral fascial mobs including around liver HEP: sit to stands, bridges, supine core, sidesteps, piriformis stretches, sciatic n glide
--- NOTE | 2023-11-15 09:48 | PT.OTN ---
Current Diagnoses Pain in unspecified hip (11/15/23) Pain in right knee (11/15/23) Low back pain, unspecified (11/15/23) Difficulty in walking, not elsewhere classified (11/15/23) Abnormal posture (11/15/23) Weakness (11/15/23) Physical Therapy Treatment Note PT-OP-A Visit Information Start: 11/02/23 17:40 Freq: Status: Active Protocol: Document 11/15/23 09:04 [facility] (Rec: 11/15/23 09:48 [facility] [id number]) Out-Patient Physical Therapy Visit Information Visit Information Visit Type Treatment Note Visit Note 60 visits per year Visit Start Time 09:04 Visit Stop Time 09:44 Visit Number 3 Number of PETROLEUM BLENDING PLANT OPERATOR Visits 0 PT-OP-B Current Condition Start: 11/02/23 17:40 Freq: Status: Active Protocol: Document 11/07/23 09:06 [facility] (Rec: 11/07/23 09:50 [facility] [id number]) Current Condition History of Current Condition Onset Date spring, about 1 year ago, late summer Current Complaints back pain, L foot numbness, R buttocks to HS History of Current Condition Pt reports they found an insufficency fx found in the Spring but does not note any incident that caused it. When she is leaning at the sink, she gets a tiny sharp pain in R buttocks. L foot MT pad is numb and toes can become numb feeling when walking. hx of R ankle sx year ago arthorscopic to clean up jt after childhood injury. Pt reports pain down leg. Does okay if walking flat, or slight incline, but if have to go up steep hill and feels like R glute grabs and goes down to HS. She has dx of osteoporosis . Started [employer] program (gets 4 exercises a week). She is on week 5. Driving is painful for LB and R leg. Has had 2 falls this year, slipping and falling in back yard but didn't notice any pain associated with it. this was after she already had dx. Does see doctor tomorrow. Pt reports R ant knee pain with up/down stairs and hills. This has been for years. Did have feet looked at and got special sneakers and MT pad. R hip is waking her up at 3 am in the AM. Pt reports does have a fatty liver (just barely) Prior Treatments and Tests CT: IMPRESSION: No nephrolithiasis or filling defects within the opacified renal collecting system or ureters. Right sacral ala insufficiency fracture. A few pulmonary micro nodules in the lung bases. Consider 12 month follow-up if at high risk for developing lung cancer, per Fleischner Society guidelines. Treatment Goals Patient/Caregiver Goals be able to hike/do uneven terrain, what exercises safety frias to stay away from vs do, Be able to drive and feel comfortable (cannot drive greater than 30 min w/o significant pain), be able to kayak PT-OP-C Subjective Start: 11/02/23 17:40 Freq: Status: Active Protocol: Document 11/15/23 09:04 [facility] (Rec: 11/15/23 09:48 [facility] [id number]) OP-PT Subjective Patient Comments Patient Comments pt reports compliance w/HEP and felt okay w/it PT-OP-D Balance Start: 11/02/23 17:40 Freq: Status: Active Protocol: Document 11/07/23 09:06 [facility] (Rec: 11/07/23 09:50 [facility] [id number]) Balance Tests Single Limb Standing Single Limb- Right L trunk rot, hip drop >30 sec Single Limb- Left 12 sec R trunk rot PT-OP-G Mobility & Gait Start: 11/02/23 17:40 Freq: Status: Active Protocol: Document 11/07/23 09:06 [facility] (Rec: 11/07/23 09:50 [facility] [id number]) OP Gait Assessment Comments Gait Comments dec trunk motion, dec UE swing , harder landing on RLE PT-OP-J Posture/Palpation/Skin Start: 11/02/23 17:40 Freq: Status: Active Protocol: Document 11/07/23 09:06 [facility] (Rec: 11/07/23 09:50 [facility] [id number]) Posture Evaluation Melinda Postural Classification System Melinda Postural Classifications Posterior/Anterior Lumbar Protective Mechanism Left AP 0 Lumbar Protective Mechanism Right AP 0 Lumbar Protective Mechanism Left PA 1 Lumbar Protective Mechanism Right PA 1 Comments Posture Comments L shoulder sit higher, slight scoliotic curve more notable in thoracic and kyphosis, R iliac crest higher and R pelvic shear, equal trochanter heights, L trunk rot PT-OP-K Range of Motion Start: 11/02/23 17:40 Freq: Status: Active Protocol: Document 11/07/23 09:06 [facility] (Rec: 11/07/23 09:50 [facility] [id number]) Ankle and Foot Goniometric Range of Motion Ankle and Foot ROM Limitations Comments 4 in to wall but knee goes more med on R PT-OP-L Special Tests Start: 11/02/23 17:40 Freq: Status: Active Protocol: Document 11/07/23 09:06 [facility] (Rec: 11/07/23 09:50 [facility] [id number]) Special Tests Lumbar Spine Special Tests Straight Leg Raise Test Results positive B Slump Test Results positive B PT-OP-M Strength Start: 11/02/23 17:40 Freq: Status: Active Protocol: Document 11/07/23 09:06 [facility] (Rec: 11/07/23 09:50 [facility] [id number]) Hip Strength Hip Manual Muscle Testing Right Flexion (L2) 3+ Fair+ Extension (S1) 3+ Fair+ Abduction 3+ Fair+ Adduction 3+ Fair+ External Rotation 4 Good Internal Rotation 4- Good- Left Flexion (L2) 3+ Fair+ Extension (S1) 3+ Fair+ Abduction 4- Good- Adduction 3+ Fair+ External Rotation 4- Good- Internal Rotation 4 Good Comments pain in R glute w/L ext Knee Strength Knee Manual Muscle Testing Right Flexion (S2) 5 Normal Extension (L3) 4+ Good+ Left Flexion (S2) 5 Normal Extension (L3) 5 Normal Ankle/Foot Strength Ankle and Foot Manual Muscle Testing Right Dorsiflexion (L4) 4+ Good+ Plantarflexion (S1) 5 Normal Comments 20 heel raises- pain in calf, foot and buttocks Left Dorsiflexion (L4) 5 Normal Plantarflexion (S1) 5 Normal Comments 20 heel raises- pain lat hip and foot PT-OP-Q Treatments Start: 11/02/23 17:40 Freq: Status: Active Protocol: Document 11/15/23 09:04 [facility] (Rec: 11/15/23 09:48 [facility] [id number]) Therapeutic Exercises Supine Exercises n glide Supine Exercise Name knee ext w/ankle pump Side bilateral Reps/Minutes 8 ea LTR Side bilateral Reps/Minutes 10 ea Comments cues core to pull legs back up bridge Side bilateral Reps/Minutes 12 Comments cues segmental stretch Supine Exercise Name piriformis Side bilateral Reps/Minutes 30 sec Sitting Exercises sciatic n glide Side bilateral Reps/Minutes 8 ea stretch Sitting Exercise Name piriformis Side bilateral Reps/Minutes 30 sec ea Standing Exercises stretch Standing Exercise Name B add Side bilateral Reps/Minutes 1 min ea sit to stand Side bilateral Reps/Minutes 10 Comments cues knee position sidesteps Side bilateral Equipment Used L2 Reps/Minutes 20ft Comments cues posture Manual Therapy Treatment Consent Patient gave verbal consent for manual Yes treatment Soft Tissue Mobilization adductor Body Location R Mobilization Type Rolling Intensity/Depth Moderate Comments w/ER & abd HS Body Location R Mobilization Type Rolling,Sustained Pressure Intensity/Depth Moderate Body Position Supine Comments w/AAROM hip flex and active n glide glute Body Location R>L glute and piriformis Mobilization Type Rolling,Sustained Pressure Intensity/Depth Moderate Body Position s/l and prone Comments w/rot Joint Mobilizations coccyx Joint transverse L & UPA R Grade I Body Position Prone Comments w/IR hip Comments R inf med for abd c/r PT-OP-T Assessment and Plan Start: 11/02/23 17:40 Freq: Status: Active Protocol: Document 11/15/23 09:04 [facility] (Rec: 11/15/23 09:48 [facility] [id number]) Physical Therapy Assessment Goals balance Meter Installer And Remover Goal (LTG) Pt will be able to do SLS B for 30 sec w/o hip drop or trunk rot LTG Duration 01/06 activity Short Term Goal (STG) Pt will be able to drive 1 hour w/o significant pain in back and leg. STG Duration 12/21 Care Home Goal (LTG) Pt will be able to hike hills and uneven terrain w/o inc pain in back, leg or knee. LTG Duration 01/15 strength Short Term Goal (STG) Pt will be indep w/HEP STG Duration 12/09 Care Home Goal (LTG) Pt will score at least 3/5 on LPM in all planes and at least 4+/5 on all BLE MMT to show improved strength to improve ease w/typical mobility. LTG Duration 01/15 LEFS Impairment 40 Short Term Goal (STG) Pt will improve LEFS score to at least 50 to show improved functional ability. STG Duration 12/09 Meter Installer And Remover Goal (LTG) Pt will improve LEFS score to at least 60 to show improved functional ability. LTG Duration 01/15 Assessment Summary Assessment Pt had improved ER after manual treatment today. She had good carryover w/exercises w/min cues needed. Physical Therapy Plan Frequency and Duration Frequency of Treatment 2x/Week Duration of treatment (weeks) 10 Plan of Care Start Date 11/07/23 Plan of Care End Date 01/16/24 Next Visit Focus/Plan Next Note Type Treatment Note Next Visit Plan per MD: only gentle massage and gentle treatment to pelvis region RLE manual for neural mobility , STM gentle to piriformis and along spine B, very gentle MET (avoid direct pelvis mobs) ,R foot mobs for improved knee tracking, visceral fascial mobs including around liver HEP: sit to stands, bridges, supine core, sidesteps, piriformis stretches, sciatic n glide
--- NOTE | 2023-11-22 10:19 | PT.OTN ---
Current Diagnoses Pain in unspecified hip (11/22/23) Pain in right knee (11/22/23) Low back pain, unspecified (11/22/23) Difficulty in walking, not elsewhere classified (11/22/23) Abnormal posture (11/22/23) Weakness (11/22/23) Physical Therapy Treatment Note PT-OP-A Visit Information Start: 11/02/23 17:40 Freq: Status: Active Protocol: Document 11/22/23 08:59 [facility] (Rec: 11/22/23 10:19 [facility] [id number]) Out-Patient Physical Therapy Visit Information Visit Information Visit Type Treatment Note Visit Note 60 visits per year Visit Start Time 09:05 Visit Stop Time 09:45 Visit Number 4 Number of DATABASE DEVELOPMENT PROJECT MANAGER Visits 0 PT-OP-B Current Condition Start: 11/02/23 17:40 Freq: Status: Active Protocol: Document 11/07/23 09:06 [facility] (Rec: 11/07/23 09:50 [facility] [id number]) Current Condition History of Current Condition Onset Date spring, about 1 year ago, late summer Current Complaints back pain, L foot numbness, R buttocks to HS History of Current Condition Pt reports they found an insufficency fx found in the Spring but does not note any incident that caused it. When she is leaning at the sink, she gets a tiny sharp pain in R buttocks. L foot MT pad is numb and toes can become numb feeling when walking. hx of R ankle sx year ago arthorscopic to clean up jt after childhood injury. Pt reports pain down leg. Does okay if walking flat, or slight incline, but if have to go up steep hill and feels like R glute grabs and goes down to HS. She has dx of osteoporosis . Started [employer] program (gets 4 exercises a week). She is on week 5. Driving is painful for LB and R leg. Has had 2 falls this year, slipping and falling in back yard but didn't notice any pain associated with it. this was after she already had dx. Does see doctor tomorrow. Pt reports R ant knee pain with up/down stairs and hills. This has been for years. Did have feet looked at and got special sneakers and MT pad. R hip is waking her up at 3 am in the AM. Pt reports does have a fatty liver (just barely) Prior Treatments and Tests CT: IMPRESSION: No nephrolithiasis or filling defects within the opacified renal collecting system or ureters. Right sacral ala insufficiency fracture. A few pulmonary micro nodules in the lung bases. Consider 12 month follow-up if at high risk for developing lung cancer, per Fleischner Society guidelines. Treatment Goals Patient/Caregiver Goals be able to hike/do uneven terrain, what exercises safety frias to stay away from vs do, Be able to drive and feel comfortable (cannot drive greater than 30 min w/o significant pain), be able to kayak PT-OP-C Subjective Start: 11/02/23 17:40 Freq: Status: Active Protocol: Document 11/22/23 08:59 [facility] (Rec: 11/22/23 10:19 [facility] [id number]) OP-PT Subjective Patient Comments Patient Comments Pt reports feeling knees today and R glute area but did do a 4.5 mile walk at a fast pacce yesterday. FEels less intense . Got new shoes (topos) PT-OP-D Balance Start: 11/02/23 17:40 Freq: Status: Active Protocol: Document 11/07/23 09:06 [facility] (Rec: 11/07/23 09:50 [facility] [id number]) Balance Tests Single Limb Standing Single Limb- Right L trunk rot, hip drop >30 sec Single Limb- Left 12 sec R trunk rot PT-OP-G Mobility & Gait Start: 11/02/23 17:40 Freq: Status: Active Protocol: Document 11/07/23 09:06 [facility] (Rec: 11/07/23 09:50 [facility] [id number]) OP Gait Assessment Comments Gait Comments dec trunk motion, dec UE swing , harder landing on RLE PT-OP-J Posture/Palpation/Skin Start: 11/02/23 17:40 Freq: Status: Active Protocol: Document 11/07/23 09:06 [facility] (Rec: 11/07/23 09:50 [facility] [id number]) Posture Evaluation Meilnda Postural Classification System Melinda Postural Classifications Posterior/Anterior Lumbar Protective Mechanism Left AP 0 Lumbar Protective Mechanism Right AP 0 Lumbar Protective Mechanism Left PA 1 Lumbar Protective Mechanism Right PA 1 Comments Posture Comments L shoulder sit higher, slight scoliotic curve more notable in thoracic and kyphosis, R iliac crest higher and R pelvic shear, equal trochanter heights, L trunk rot PT-OP-K Range of Motion Start: 11/02/23 17:40 Freq: Status: Active Protocol: Document 11/07/23 09:06 [facility] (Rec: 11/07/23 09:50 [facility] [id number]) Ankle and Foot Goniometric Range of Motion Ankle and Foot ROM Limitations Comments 4 in to wall but knee goes more med on R PT-OP-L Special Tests Start: 11/02/23 17:40 Freq: Status: Active Protocol: Document 11/07/23 09:06 [facility] (Rec: 11/07/23 09:50 [facility] [id number]) Special Tests Lumbar Spine Special Tests Straight Leg Raise Test Results positive B Slump Test Results positive B PT-OP-M Strength Start: 11/02/23 17:40 Freq: Status: Active Protocol: Document 11/07/23 09:06 [facility] (Rec: 11/07/23 09:50 [facility] [id number]) Hip Strength Hip Manual Muscle Testing Right Flexion (L2) 3+ Fair+ Extension (S1) 3+ Fair+ Abduction 3+ Fair+ Adduction 3+ Fair+ External Rotation 4 Good Internal Rotation 4- Good- Left Flexion (L2) 3+ Fair+ Extension (S1) 3+ Fair+ Abduction 4- Good- Adduction 3+ Fair+ External Rotation 4- Good- Internal Rotation 4 Good Comments pain in R glute w/L ext Knee Strength Knee Manual Muscle Testing Right Flexion (S2) 5 Normal Extension (L3) 4+ Good+ Left Flexion (S2) 5 Normal Extension (L3) 5 Normal Ankle/Foot Strength Ankle and Foot Manual Muscle Testing Right Dorsiflexion (L4) 4+ Good+ Plantarflexion (S1) 5 Normal Comments 20 heel raises- pain in calf, foot and buttocks Left Dorsiflexion (L4) 5 Normal Plantarflexion (S1) 5 Normal Comments 20 heel raises- pain lat hip and foot PT-OP-Q Treatments Start: 11/02/23 17:40 Freq: Status: Active Protocol: Document 11/22/23 08:59 [facility] (Rec: 11/22/23 10:19 [facility] [id number]) Therapeutic Exercises Supine Exercises isometric Supine Exercise Name DL flex Side bilateral Reps/Minutes 30 sec LTR Side bilateral Reps/Minutes 8ea Comments cues core segmental push down to pull legs back up Prone Exercises plank Prone Exercise Name forearm and knees Side bilateral Reps/Minutes 20 sec Comments inc time for set up Sitting Exercises stretch Sitting Exercise Name plantar fascia Side bilateral Reps/Minutes 30 sec Standing Exercises hip hinge Standing Exercise Name 1.seated w/bar 2. standing w/ bar Side bilateral Reps/Minutes 8 ea bent over row Standing Exercise Name at counter w/elbow on counter Side bilateral Reps/Minutes 10 ext Standing Exercise Name bent over at bar w/hip hinge Side bilateral Reps/Minutes 15 resisted walk Standing Exercise Name fwd monster walk/back walk Side bilateral Equipment Used L2 Reps/Minutes 2x20ft ea stretch Standing Exercise Name 1. B add 2. calf on step Side bilateral Reps/Minutes 1 min ea sidesteps Side bilateral Equipment Used L2 Reps/Minutes 20ft Comments cues posture Manual Therapy Treatment Consent Patient gave verbal consent for manual Yes treatment Soft Tissue Mobilization HS Body Location R semitendonosis, semimembranosis, gracilis Mobilization Type Rolling,Sustained Pressure Intensity/Depth Moderate Body Position Supine Comments w/AAROM hip flex and active n glide PT-OP-T Assessment and Plan Start: 11/02/23 17:40 Freq: Status: Active Protocol: Document 11/22/23 08:59 [facility] (Rec: 11/22/23 10:19 [facility] [id number]) Physical Therapy Assessment Goals balance Shelter Goal (LTG) Pt will be able to do SLS B for 30 sec w/o hip drop or trunk rot LTG Duration 01/06 activity Short Term Goal (STG) Pt will be able to drive 1 hour w/o significant pain in back and leg. STG Duration 12/21 Shelter Goal (LTG) Pt will be able to hike hills and uneven terrain w/o inc pain in back, leg or knee. LTG Duration 01/15 strength Short Term Goal (STG) Pt will be indep w/HEP STG Duration 12/09 Buttonhole Marker Goal (LTG) Pt will score at least 3/5 on LPM in all planes and at least 4+/5 on all BLE MMT to show improved strength to improve ease w/typical mobility. LTG Duration 01/15 LEFS Impairment 40 Short Term Goal (STG) Pt will improve LEFS score to at least 50 to show improved functional ability. STG Duration 12/09 Shelter Goal (LTG) Pt will improve LEFS score to at least 60 to show improved functional ability. LTG Duration 01/15 Assessment Summary Assessment Pt did well with exercises w/o c/o pain. Had difficulty setting up for bent over row ( exercise from her exercise program) so inc time needed to teach hip hinge. Unable to do full plank well so started pt on knee plank Physical Therapy Plan Frequency and Duration Frequency of Treatment 2x/Week Duration of treatment (weeks) 10 Plan of Care Start Date 11/07/23 Plan of Care End Date 01/16/24 Next Visit Focus/Plan Next Note Type Treatment Note Next Visit Plan per MD: only gentle massage and gentle treatment to pelvis region RLE manual for neural mobility , STM gentle to piriformis and along spine B, very gentle MET (avoid direct pelvis mobs) ,R foot mobs for improved knee tracking, visceral fascial mobs including around liver Advance hip strength as able HEP: sit to stands, bridges, supine core, sidesteps, piriformis stretches, sciatic n glide
--- NOTE | 2023-11-27 09:50 | PT.OTN ---
Current Diagnoses Pain in unspecified hip (11/27/23) Pain in right knee (11/27/23) Low back pain, unspecified (11/27/23) Difficulty in walking, not elsewhere classified (11/27/23) Abnormal posture (11/27/23) Weakness (11/27/23) Physical Therapy Treatment Note PT-OP-A Visit Information Start: 11/02/23 17:40 Freq: Status: Active Protocol: Document 11/27/23 09:05 SP (Rec: 11/27/23 09:53 SP [id number]) Out-Patient Physical Therapy Visit Information Visit Information Visit Type Treatment Note Visit Note 60 visits per year Visit Start Time 09:05 Visit Stop Time 09:50 Visit Number 60 Number of USER EXPERIENCE DEVELOPER Visits 1 Precautions Precautions hx of sacral ala fx earlier this year PT-OP-B Current Condition Start: 11/02/23 17:40 Freq: Status: Active Protocol: Document 11/07/23 09:06 [facility] (Rec: 11/07/23 09:50 [facility] [id number]) Current Condition History of Current Condition Onset Date spring, about 1 year ago, late summer Current Complaints back pain, L foot numbness, R buttocks to HS History of Current Condition Pt reports they found an insufficency fx found in the Spring but does not note any incident that caused it. When she is leaning at the sink, she gets a tiny sharp pain in R buttocks. L foot MT pad is numb and toes can become numb feeling when walking. hx of R ankle sx year ago arthorscopic to clean up jt after childhood injury. Pt reports pain down leg. Does okay if walking flat, or slight incline, but if have to go up steep hill and feels like R glute grabs and goes down to HS. She has dx of osteoporosis . Started [employer] program (gets 4 exercises a week). She is on week 5. Driving is painful for LB and R leg. Has had 2 falls this year, slipping and falling in back yard but didn't notice any pain associated with it. this was after she already had dx. Does see doctor tomorrow. Pt reports R ant knee pain with up/down stairs and hills. This has been for years. Did have feet looked at and got special sneakers and MT pad. R hip is waking her up at 3 am in the AM. Pt reports does have a fatty liver (just barely) Prior Treatments and Tests CT: IMPRESSION: No nephrolithiasis or filling defects within the opacified renal collecting system or ureters. Right sacral ala insufficiency fracture. A few pulmonary micro nodules in the lung bases. Consider 12 month follow-up if at high risk for developing lung cancer, per Fleischner Society guidelines. Treatment Goals Patient/Caregiver Goals be able to hike/do uneven terrain, what exercises safety frias to stay away from vs do, Be able to drive and feel comfortable (cannot drive greater than 30 min w/o significant pain), be able to kayak PT-OP-C Subjective Start: 11/02/23 17:40 Freq: Status: Active Protocol: Document 11/27/23 09:05 SP (Rec: 11/27/23 09:53 SP [id number]) OP-PT Subjective Patient Comments Patient Comments Pt reports back feeling sore ache in center of LB but feels manual and HEP helping. Has appt with Dr Borjas today to look at her L foot. PT-OP-D Balance Start: 11/02/23 17:40 Freq: Status: Active Protocol: Document 11/07/23 09:06 [facility] (Rec: 11/07/23 09:50 [facility] [id number]) Balance Tests Single Limb Standing Single Limb- Right L trunk rot, hip drop >30 sec Single Limb- Left 12 sec R trunk rot PT-OP-G Mobility & Gait Start: 11/02/23 17:40 Freq: Status: Active Protocol: Document 11/07/23 09:06 [facility] (Rec: 11/07/23 09:50 [facility] [id number]) OP Gait Assessment Comments Gait Comments dec trunk motion, dec UE swing , harder landing on RLE PT-OP-J Posture/Palpation/Skin Start: 11/02/23 17:40 Freq: Status: Active Protocol: Document 11/07/23 09:06 [facility] (Rec: 11/07/23 09:50 [facility] [id number]) Posture Evaluation Melinda Postural Classification System Melinda Postural Classifications Posterior/Anterior Lumbar Protective Mechanism Left AP 0 Lumbar Protective Mechanism Right AP 0 Lumbar Protective Mechanism Left PA 1 Lumbar Protective Mechanism Right PA 1 Comments Posture Comments L shoulder sit higher, slight scoliotic curve more notable in thoracic and kyphosis, R iliac crest higher and R pelvic shear, equal trochanter heights, L trunk rot PT-OP-K Range of Motion Start: 11/02/23 17:40 Freq: Status: Active Protocol: Document 11/07/23 09:06 [facility] (Rec: 11/07/23 09:50 [facility] [id number]) Ankle and Foot Goniometric Range of Motion Ankle and Foot ROM Limitations Comments 4 in to wall but knee goes more med on R PT-OP-L Special Tests Start: 11/02/23 17:40 Freq: Status: Active Protocol: Document 11/07/23 09:06 [facility] (Rec: 11/07/23 09:50 [facility] [id number]) Special Tests Lumbar Spine Special Tests Straight Leg Raise Test Results positive B Slump Test Results positive B PT-OP-M Strength Start: 11/02/23 17:40 Freq: Status: Active Protocol: Document 11/07/23 09:06 [facility] (Rec: 11/07/23 09:50 [facility] [id number]) Hip Strength Hip Manual Muscle Testing Right Flexion (L2) 3+ Fair+ Extension (S1) 3+ Fair+ Abduction 3+ Fair+ Adduction 3+ Fair+ External Rotation 4 Good Internal Rotation 4- Good- Left Flexion (L2) 3+ Fair+ Extension (S1) 3+ Fair+ Abduction 4- Good- Adduction 3+ Fair+ External Rotation 4- Good- Internal Rotation 4 Good Comments pain in R glute w/L ext Knee Strength Knee Manual Muscle Testing Right Flexion (S2) 5 Normal Extension (L3) 4+ Good+ Left Flexion (S2) 5 Normal Extension (L3) 5 Normal Ankle/Foot Strength Ankle and Foot Manual Muscle Testing Right Dorsiflexion (L4) 4+ Good+ Plantarflexion (S1) 5 Normal Comments 20 heel raises- pain in calf, foot and buttocks Left Dorsiflexion (L4) 5 Normal Plantarflexion (S1) 5 Normal Comments 20 heel raises- pain lat hip and foot PT-OP-Q Treatments Start: 11/02/23 17:40 Freq: Status: Active Protocol: Document 11/27/23 09:05 SP (Rec: 11/27/23 09:53 SP [id number]) Therapeutic Exercises Standing Exercises step ups Standing Exercise Name 1. fwd/bck down 2. lateral step down- added to HEP /c HO Side bilateral Equipment Used 6 step Reps/Minutes x10 each Comments cued knee with/ behind toes hip hinge Standing Exercise Name 1. seated 2. standing 3. squat sit taps & eccentric hover<> stand Side bilateral Resistance bar along spine Equipment Used front mirror Reps/Minutes x10 resisted walk Standing Exercise Name fwd monster walk/back walk Side bilateral Equipment Used L2 at shins Reps/Minutes 2x20ft ea Comments cued maintain feet/knees apart sidesteps Side bilateral Equipment Used L2 at shins Reps/Minutes 20ft Comments cues posture, eccentric return , DF foot clearance Other Exercises self STMs Other Exercise Name instructed self STMSs: HS flex /ext over tennis ball, QL & glut Resistance added to HEP PRN Equipment Used ball roll wall glut& LB standing, MWM ball under HS seated LAQ Comments good feedback response- less muscle tension for help home, traveling Manual Therapy Treatment Consent Patient gave verbal consent for manual Yes treatment Soft Tissue Mobilization HS Body Location R semitendonosis, semimembranosis, gracilis Mobilization Type Rolling,Sustained Pressure Intensity/Depth Moderate Body Position Supine Comments w/AAROM knee flex/ext glute Body Location R>L glute and piriformis, QL Mobilization Type Rolling,Sustained Pressure Intensity/Depth Moderate Body Position s/l Comments STMs & MWM /c hip IR/ER, hip elevation/depression PT-OP-T Assessment and Plan Start: 11/02/23 17:40 Freq: Status: Active Protocol: Document 11/27/23 09:05 SP (Rec: 11/27/23 09:53 SP [id number]) Physical Therapy Assessment Goals balance Retirement Goal (LTG) Pt will be able to do SLS B for 30 sec w/o hip drop or trunk rot LTG Duration 01/06 activity Short Term Goal (STG) Pt will be able to drive 1 hour w/o significant pain in back and leg. STG Duration 12/21 Retirement Goal (LTG) Pt will be able to hike hills and uneven terrain w/o inc pain in back, leg or knee. LTG Duration 01/15 strength Short Term Goal (STG) Pt will be indep w/HEP STG Duration 12/09 Retirement Goal (LTG) Pt will score at least 3/5 on LPM in all planes and at least 4+/5 on all BLE MMT to show improved strength to improve ease w/typical mobility. LTG Duration 01/15 LEFS Impairment 40 Short Term Goal (STG) Pt will improve LEFS score to at least 50 to show improved functional ability. STG Duration 11 Power Generation Technician Goal (LTG) Pt will improve LEFS score to at least 60 to show improved functional ability. LTG Duration 01/15 Assessment Summary Assessment Pt responded well to manual B low back, gluteal area and HS with education on self MWM use tennis ball LAQ for HS mobility, gluteal and LB for tension reduction with good feedback response self application after manual today . Good feedback muscle tiring during resisted stepping ther ex, cues for DF and trail foot clearance eccentric control for safety balance recovery/ stability, 1 LOB self correction. Improved hip hinge mechanics front mirror with use dowel initally and cued knees increase WBOS for hip abd strengthening carryover into transfers with good understanding corrections use mirror. Physical Therapy Plan Frequency and Duration Frequency of Treatment 2x/Week Duration of treatment (weeks) 10 Plan of Care Start Date 11/07/23 Plan of Care End Date 01/16/24 Therapeutic Interventions Therapeutic Interventions Balance Training,Home Exercise Program,Joint Mobilizations, Manual Therapy,Neuromuscular Re-education,Patient/Caregiver Education,Self-Care/Home Management,Soft Tissue Mobilization,Taping, Therapeutic Activities, Therapeutic Exercises Modalities Cold Pack/Ice Massage,Electric Stimulation,Hot Packs, Infrared Therapy,Ultrasound Next Visit Focus/Plan Next Note Type Treatment Note Next Visit Plan Recheck HEP: per MD: only gentle massage and gentle treatment to pelvis region RLE manual for neural mobility , STM gentle to piriformis and along spine B, very gentle MET (avoid direct pelvis mobs) ,R foot mobs for improved knee tracking, visceral fascial mobs including around liver Advance hip strength as able HEP: sit to stands, bridges, supine core, sidesteps, piriformis stretches, sciatic n glide
--- NOTE | 2023-11-29 09:44 | PT.OTN ---
Current Diagnoses Pain in unspecified hip (11/29/23) Pain in right knee (11/29/23) Low back pain, unspecified (11/29/23) Difficulty in walking, not elsewhere classified (11/29/23) Abnormal posture (11/29/23) Weakness (11/29/23) Physical Therapy Treatment Note PT-OP-A Visit Information Start: 11/02/23 17:40 Freq: Status: Active Protocol: Document 11/29/23 09:01 SP (Rec: 11/29/23 09:47 SP [id number]) Out-Patient Physical Therapy Visit Information Visit Information Visit Type Treatment Note Visit Note 60 visits per year Visit Start Time 09:01 Visit Stop Time 09:44 Visit Number Number of ICING COATER Visits 2 Precautions Precautions hx of sacral ala fx earlier this year PT-OP-B Current Condition Start: 11/02/23 17:40 Freq: Status: Active Protocol: Document 11/07/23 09:06 [facility] (Rec: 11/07/23 09:50 [facility] [id number]) Current Condition History of Current Condition Onset Date spring, about 1 year ago, late summer Current Complaints back pain, L foot numbness, R buttocks to HS History of Current Condition Pt reports they found an insufficency fx found in the Spring but does not note any incident that caused it. When she is leaning at the sink, she gets a tiny sharp pain in R buttocks. L foot MT pad is numb and toes can become numb feeling when walking. hx of R ankle sx year ago arthorscopic to clean up jt after childhood injury. Pt reports pain down leg. Does okay if walking flat, or slight incline, but if have to go up steep hill and feels like R glute grabs and goes down to HS. She has dx of osteoporosis . Started [employer] program (gets 4 exercises a week). She is on week 5. Driving is painful for LB and R leg. Has had 2 falls this year, slipping and falling in back yard but didn't notice any pain associated with it. this was after she already had dx. Does see doctor tomorrow. Pt reports R ant knee pain with up/down stairs and hills. This has been for years. Did have feet looked at and got special sneakers and MT pad. R hip is waking her up at 3 am in the AM. Pt reports does have a fatty liver (just barely) Prior Treatments and Tests CT: IMPRESSION: No nephrolithiasis or filling defects within the opacified renal collecting system or ureters. Right sacral ala insufficiency fracture. A few pulmonary micro nodules in the lung bases. Consider 12 month follow-up if at high risk for developing lung cancer, per Fleischner Society guidelines. Treatment Goals Patient/Caregiver Goals be able to hike/do uneven terrain, what exercises safety frias to stay away from vs do, Be able to drive and feel comfortable (cannot drive greater than 30 min w/o significant pain), be able to kayak PT-OP-C Subjective Start: 11/02/23 17:40 Freq: Status: Active Protocol: Document 11/29/23 09:01 SP (Rec: 11/29/23 09:47 SP [id number]) OP-PT Subjective Patient Comments Patient Comments Pt reports did 4 mile walk and her L>R knee ached even going up/or down inclines. Saw and awaiting MRI for her low back and possible order an EMG . PT-OP-D Balance Start: 11/02/23 17:40 Freq: Status: Active Protocol: Document 11/07/23 09:06 [facility] (Rec: 11/07/23 09:50 [facility] [id number]) Balance Tests Single Limb Standing Single Limb- Right L trunk rot, hip drop >30 sec Single Limb- Left 12 sec R trunk rot PT-OP-G Mobility & Gait Start: 11/02/23 17:40 Freq: Status: Active Protocol: Document 11/07/23 09:06 [facility] (Rec: 11/07/23 09:50 [facility] [id number]) OP Gait Assessment Comments Gait Comments dec trunk motion, dec UE swing , harder landing on RLE PT-OP-J Posture/Palpation/Skin Start: 11/02/23 17:40 Freq: Status: Active Protocol: Document 11/07/23 09:06 [facility] (Rec: 11/07/23 09:50 [facility] [id number]) Posture Evaluation Melinda Postural Classification System Melinda Postural Classifications Posterior/Anterior Lumbar Protective Mechanism Left AP 0 Lumbar Protective Mechanism Right AP 0 Lumbar Protective Mechanism Left PA 1 Lumbar Protective Mechanism Right PA 1 Comments Posture Comments L shoulder sit higher, slight scoliotic curve more notable in thoracic and kyphosis, R iliac crest higher and R pelvic shear, equal trochanter heights, L trunk rot PT-OP-K Range of Motion Start: 11/02/23 17:40 Freq: Status: Active Protocol: Document 11/07/23 09:06 [facility] (Rec: 11/07/23 09:50 [facility] [id number]) Ankle and Foot Goniometric Range of Motion Ankle and Foot ROM Limitations Comments 4 in to wall but knee goes more med on R PT-OP-L Special Tests Start: 11/02/23 17:40 Freq: Status: Active Protocol: Document 11/07/23 09:06 [facility] (Rec: 11/07/23 09:50 [facility] [id number]) Special Tests Lumbar Spine Special Tests Straight Leg Raise Test Results positive B Slump Test Results positive B PT-OP-M Strength Start: 11/02/23 17:40 Freq: Status: Active Protocol: Document 11/07/23 09:06 [facility] (Rec: 11/07/23 09:50 [facility] [id number]) Hip Strength Hip Manual Muscle Testing Right Flexion (L2) 3+ Fair+ Extension (S1) 3+ Fair+ Abduction 3+ Fair+ Adduction 3+ Fair+ External Rotation 4 Good Internal Rotation 4- Good- Left Flexion (L2) 3+ Fair+ Extension (S1) 3+ Fair+ Abduction 4- Good- Adduction 3+ Fair+ External Rotation 4- Good- Internal Rotation 4 Good Comments pain in R glute w/L ext Knee Strength Knee Manual Muscle Testing Right Flexion (S2) 5 Normal Extension (L3) 4+ Good+ Left Flexion (S2) 5 Normal Extension (L3) 5 Normal Ankle/Foot Strength Ankle and Foot Manual Muscle Testing Right Dorsiflexion (L4) 4+ Good+ Plantarflexion (S1) 5 Normal Comments 20 heel raises- pain in calf, foot and buttocks Left Dorsiflexion (L4) 5 Normal Plantarflexion (S1) 5 Normal Comments 20 heel raises- pain lat hip and foot PT-OP-Q Treatments Start: 11/02/23 17:40 Freq: Status: Active Protocol: Document 11/29/23 09:01 SP (Rec: 11/29/23 09:47 SP [id number]) Therapeutic Exercises Sitting Exercises LAQ Sitting Exercise Name added to HEP /c HO Side bilateral Resistance AROM Reps/Minutes 10 SH x10 ( next tx add TB) Comments cued neutral LS, upright posture Standing Exercises Glut med at wall Standing Exercise Name initiated at wall: glut med hip elevation Side bilateral Equipment Used bend knee ankle behind stance knee Reps/Minutes 5 reps Comments cued set up and slow elevation depression neutral.- good tiring glut med step ups Standing Exercise Name 1. fwd/bck down 2. lateral step down- added to HEP /c HO Side bilateral Equipment Used 6 step, not need rail Reps/Minutes x10 each Comments cued knee lateral midline with / behind forefoot Other Exercises child's pose Other Exercise Name trialed after manual for ES and QL stretch Reps/Minutes 30 SH x2 self STMs Other Exercise Name instructed self STMSs: HS flex /ext over tennis ball, QL & glut Resistance reviewed PRN Equipment Used ball roll wall glut& LB standing, MWM ball under HS seated LAQ Comments good feedback response- less muscle tension for help home, traveling Manual Therapy Treatment Consent Patient gave verbal consent for manual Yes treatment Soft Tissue Mobilization HS Body Location R semitendonosis, semimembranosis, gracilis Mobilization Type Rolling,Sustained Pressure Intensity/Depth Moderate Body Position Prone Comments MWM knee flex/ext glute Body Location R>L glute and piriformis, QL Mobilization Type Rolling,Sustained Pressure Intensity/Depth Moderate Body Position prone over pillows Comments gentle with requested feedback pressure STMs & MWM /c hip IR /ER & pelvic elevation muscle activation. PT-OP-T Assessment and Plan Start: 11/02/23 17:40 Freq: Status: Active Protocol: Document 11/29/23 09:01 SP (Rec: 11/29/23 09:47 SP [id number]) Physical Therapy Assessment Goals balance Junior Sales Assistant Goal (LTG) Pt will be able to do SLS B for 30 sec w/o hip drop or trunk rot LTG Duration 01/06 activity Short Term Goal (STG) Pt will be able to drive 1 hour w/o significant pain in back and leg. STG Duration 12/21 Senior Living Goal (LTG) Pt will be able to hike hills and uneven terrain w/o inc pain in back, leg or knee. LTG Duration 01/15 strength Short Term Goal (STG) Pt will be indep w/HEP STG Duration 12/09 Senior Living Goal (LTG) Pt will score at least 3/5 on LPM in all planes and at least 4+/5 on all BLE MMT to show improved strength to improve ease w/typical mobility. LTG Duration 01/15 LEFS Impairment 40 Short Term Goal (STG) Pt will improve LEFS score to at least 50 to show improved functional ability. STG Duration 11/3 Senior Living Goal (LTG) Pt will improve LEFS score to at least 60 to show improved functional ability. LTG Duration 01/15 Assessment Summary Assessment Pt improved muscle mobility post manual. Education provided self application use of tennis ball home carryover for benefits with gentle comfortable pressure, not pain verbalized understood. Good feedback low back stretch of LB trial child's pose positioning. Instructed isometric quad knee extension hold with good tiring report, will check if can progress use TB next tx. Pt tolerated progression LE strengthening step ups with cues for knee alignment and glut med hip elevation at wall with report muscle tiring stance LE. PRovided HOs for set up and proper form progression outside PT carryover home application. Physical Therapy Plan Frequency and Duration Frequency of Treatment 2x/Week Duration of treatment (weeks) 10 Plan of Care Start Date 11/07/23 Plan of Care End Date 01/16/24 Therapeutic Interventions Therapeutic Interventions Balance Training,Home Exercise Program,Joint Mobilizations, Manual Therapy,Neuromuscular Re-education,Patient/Caregiver Education,Self-Care/Home Management,Soft Tissue Mobilization,Taping, Therapeutic Activities, Therapeutic Exercises Modalities Cold Pack/Ice Massage,Electric Stimulation,Hot Packs, Infrared Therapy,Ultrasound Next Visit Focus/Plan Next Note Type Treatment Note Next Visit Plan Recheck HEP: LAQ, glut med wall, step ups f/lat, sit to stands, bridges, supine core, sidesteps, piriformis stretches, sciatic n glide. * per MD: only gentle massage and gentle treatment to pelvis region RLE manual for neural mobility , STM gentle to piriformis and along spine B, very gentle MET (avoid direct pelvis mobs) ,R foot mobs for improved knee tracking, visceral fascial mobs including around liver Advance hip strength as able
--- NOTE | 2023-12-05 08:12 | PT.OTN ---
Current Diagnoses Pain in unspecified hip (12/05/23) Pain in right knee (12/05/23) Low back pain, unspecified (12/05/23) Difficulty in walking, not elsewhere classified (12/05/23) Abnormal posture (12/05/23) Weakness (12/05/23) Physical Therapy Treatment Note PT-OP-A Visit Information Start: 11/02/23 17:40 Freq: Status: Active Protocol: Document 12/05/23 07:30 SP (Rec: 12/05/23 08:43 SP [id number]) Out-Patient Physical Therapy Visit Information Visit Information Visit Type Treatment Note Visit Note 60 visits per year Visit Start Time 07:30 Visit Stop Time 08:12 Visit Number Number of PERSONAL CARE SERVICE PROVIDER Visits 3 Precautions Precautions hx of sacral ala fx earlier this year PT-OP-B Current Condition Start: 11/02/23 17:40 Freq: Status: Active Protocol: Document 11/07/23 09:06 [facility] (Rec: 11/07/23 09:50 [facility] [id number]) Current Condition History of Current Condition Onset Date spring, about 1 year ago, late summer Current Complaints back pain, L foot numbness, R buttocks to HS History of Current Condition Pt reports they found an insufficency fx found in the Spring but does not note any incident that caused it. When she is leaning at the sink, she gets a tiny sharp pain in R buttocks. L foot MT pad is numb and toes can become numb feeling when walking. hx of R ankle sx year ago arthorscopic to clean up jt after childhood injury. Pt reports pain down leg. Does okay if walking flat, or slight incline, but if have to go up steep hill and feels like R glute grabs and goes down to HS. She has dx of osteoporosis . Started [employer] program (gets 4 exercises a week). She is on week 5. Driving is painful for LB and R leg. Has had 2 falls this year, slipping and falling in back yard but didn't notice any pain associated with it. this was after she already had dx. Does see doctor tomorrow. Pt reports R ant knee pain with up/down stairs and hills. This has been for years. Did have feet looked at and got special sneakers and MT pad. R hip is waking her up at 3 am in the AM. Pt reports does have a fatty liver (just barely) Prior Treatments and Tests CT: IMPRESSION: No nephrolithiasis or filling defects within the opacified renal collecting system or ureters. Right sacral ala insufficiency fracture. A few pulmonary micro nodules in the lung bases. Consider 12 month follow-up if at high risk for developing lung cancer, per Fleischner Society guidelines. Treatment Goals Patient/Caregiver Goals be able to hike/do uneven terrain, what exercises safety frias to stay away from vs do, Be able to drive and feel comfortable (cannot drive greater than 30 min w/o significant pain), be able to kayak PT-OP-C Subjective Start: 11/02/23 17:40 Freq: Status: Active Protocol: Document 12/05/23 07:30 SP (Rec: 12/05/23 08:43 SP [id number]) OP-PT Subjective Patient Comments Patient Comments Pt reports feeling overall see slight improvements but still getting intense ache more lateral whole distance of hamstring but when driving ache is medial hamstring. Pt reports has hand surgery later this week so out of PT for at least 1-2 weeks for recovery. Will call and add more appts for 2x/wk end tx today per POC . PT-OP-D Balance Start: 11/02/23 17:40 Freq: Status: Active Protocol: Document 11/07/23 09:06 [facility] (Rec: 11/07/23 09:50 [facility] [id number]) Balance Tests Single Limb Standing Single Limb- Right L trunk rot, hip drop >30 sec Single Limb- Left 12 sec R trunk rot PT-OP-G Mobility & Gait Start: 11/02/23 17:40 Freq: Status: Active Protocol: Document 11/07/23 09:06 [facility] (Rec: 11/07/23 09:50 [facility] [id number]) OP Gait Assessment Comments Gait Comments dec trunk motion, dec UE swing , harder landing on RLE PT-OP-J Posture/Palpation/Skin Start: 11/02/23 17:40 Freq: Status: Active Protocol: Document 11/07/23 09:06 [facility] (Rec: 11/07/23 09:50 [facility] [id number]) Posture Evaluation Melinda Postural Classification System Melinda Postural Classifications Posterior/Anterior Lumbar Protective Mechanism Left AP 0 Lumbar Protective Mechanism Right AP 0 Lumbar Protective Mechanism Left PA 1 Lumbar Protective Mechanism Right PA 1 Comments Posture Comments L shoulder sit higher, slight scoliotic curve more notable in thoracic and kyphosis, R iliac crest higher and R pelvic shear, equal trochanter heights, L trunk rot PT-OP-K Range of Motion Start: 11/02/23 17:40 Freq: Status: Active Protocol: Document 11/07/23 09:06 [facility] (Rec: 11/07/23 09:50 [facility] [id number]) Ankle and Foot Goniometric Range of Motion Ankle and Foot ROM Limitations Comments 4 in to wall but knee goes more med on R PT-OP-L Special Tests Start: 11/02/23 17:40 Freq: Status: Active Protocol: Document 11/07/23 09:06 [facility] (Rec: 11/07/23 09:50 [facility] [id number]) Special Tests Lumbar Spine Special Tests Straight Leg Raise Test Results positive B Slump Test Results positive B PT-OP-M Strength Start: 11/02/23 17:40 Freq: Status: Active Protocol: Document 11/07/23 09:06 [facility] (Rec: 11/07/23 09:50 [facility] [id number]) Hip Strength Hip Manual Muscle Testing Right Flexion (L2) 3+ Fair+ Extension (S1) 3+ Fair+ Abduction 3+ Fair+ Adduction 3+ Fair+ External Rotation 4 Good Internal Rotation 4- Good- Left Flexion (L2) 3+ Fair+ Extension (S1) 3+ Fair+ Abduction 4- Good- Adduction 3+ Fair+ External Rotation 4- Good- Internal Rotation 4 Good Comments pain in R glute w/L ext Knee Strength Knee Manual Muscle Testing Right Flexion (S2) 5 Normal Extension (L3) 4+ Good+ Left Flexion (S2) 5 Normal Extension (L3) 5 Normal Ankle/Foot Strength Ankle and Foot Manual Muscle Testing Right Dorsiflexion (L4) 4+ Good+ Plantarflexion (S1) 5 Normal Comments 20 heel raises- pain in calf, foot and buttocks Left Dorsiflexion (L4) 5 Normal Plantarflexion (S1) 5 Normal Comments 20 heel raises- pain lat hip and foot PT-OP-Q Treatments Start: 11/02/23 17:40 Freq: Status: Active Protocol: Document 12/05/23 07:30 SP (Rec: 12/05/23 08:43 SP [id number]) Therapeutic Exercises Supine Exercises n glide Supine Exercise Name active HS: knee ext w/ankle pump Side bilateral Reps/Minutes 20 ankle pumps Comments post manual Prone Exercises Eccentric HS curl Prone Exercise Name trialed in PT Side right Resistance 4# leg wt Reps/Minutes x10 Comments slight assist into flexion, slow extension Sitting Exercises LAQ Sitting Exercise Name provided HO Side bilateral Resistance AROM> TB #2 under 1 foot over ankle other Reps/Minutes 2x10 Comments cued neutral LS, upright posture Standing Exercises HS stretch Standing Exercise Name 1. bottoms up 2. hip hinge TKE : med/lat/whole Side right Resistance added to HEP /c HO Equipment Used 1. hands on 12>8 box 2. foot on 16 box Reps/Minutes 1. 15 SH x2 2. 20 sec each position Comments 1. cued straight back Glut med at wall Standing Exercise Name HEP Side bilateral Equipment Used bend knee ankle behind stance knee Reps/Minutes 2x10 reps Comments cued set up and slow elevation depression neutral.- good tiring glut med resisted walk Standing Exercise Name fwd monster walk/back walk Side bilateral Equipment Used L2>3 at shins Reps/Minutes 2x20ft ea Comments cues occasional feet parallel sidesteps Standing Exercise Name lateral Side bilateral Equipment Used L2>3 at shins Reps/Minutes 2x20ft Comments cues occasional DF foot clearance Other Exercises tall knee eccentric HS Other Exercise Name trialed eccentric hamstring in tall knee lowering Equipment Used light supported UE on wedge Reps/Minutes attempted 1 rep- caused R>L HS cramp Comments DC Manual Therapy Treatment Consent Patient gave verbal consent for manual Yes treatment Soft Tissue Mobilization HS Body Location R semitendonosis, semimembranosis, gracilis Mobilization Type Rolling,Sustained Pressure, Other Intensity/Depth Moderate Comments prone over pillows and supine R lower leg over therapist shoulder active knee extension -MWM knee flex/ext glute Body Location R glute and piriformis, QL Mobilization Type Rolling,Sustained Pressure Intensity/Depth Moderate Body Position prone over pillows Comments MWM /c hip IR/ER & pelvic elevation muscle activation. Self-Care/Home Management Treatment Education Patient Education Body Mechanics,Home Exercise Program,Pain Management, Posture Other Education Education on posture, pelvic alignment sitting with height chair firm and depth for active quad contraction, improved chair> table elevation no LB or hip flexor compensations. PT-OP-T Assessment and Plan Start: 11/02/23 17:40 Freq: Status: Active Protocol: Document 12/05/23 07:30 SP (Rec: 12/05/23 08:43 SP [id number]) Physical Therapy Assessment Goals balance Life Science Technician Goal (LTG) Pt will be able to do SLS B for 30 sec w/o hip drop or trunk rot LTG Duration 01/06 activity Short Term Goal (STG) Pt will be able to drive 1 hour w/o significant pain in back and leg. STG Duration 12/21 Life Science Technician Goal (LTG) Pt will be able to hike hills and uneven terrain w/o inc pain in back, leg or knee. LTG Duration 01/15 strength Short Term Goal (STG) Pt will be indep w/HEP STG Duration 12/09 Life Science Technician Goal (LTG) Pt will score at least 3/5 on LPM in all planes and at least 4+/5 on all BLE MMT to show improved strength to improve ease w/typical mobility. LTG Duration 01/15 LEFS Impairment 40 Short Term Goal (STG) Pt will improve LEFS score to at least 50 to show improved functional ability. STG Duration 12/09 Life Science Technician Goal (LTG) Pt will improve LEFS score to at least 60 to show improved functional ability. LTG Duration 01/15 Assessment Summary Assessment Pt improved decreased HS tension post manual and stretching. Cues and education for postural alignment, neutral pelvis and TA engagement during resisted ther ex for no LB compensations. She was able to tolerate increased resistance today with LAQ and side stepping and improvement in pelvic corrections for isolated muscle strength. Pt reports no discomfort end tx. Physical Therapy Plan Frequency and Duration Frequency of Treatment 2x/Week Duration of treatment (weeks) 10 Plan of Care Start Date 11/07/23 Plan of Care End Date 01/16/24 Therapeutic Interventions Therapeutic Interventions Balance Training,Home Exercise Program,Joint Mobilizations, Manual Therapy,Neuromuscular Re-education,Patient/Caregiver Education,Self-Care/Home Management,Soft Tissue Mobilization,Taping, Therapeutic Activities, Therapeutic Exercises Modalities Cold Pack/Ice Massage,Electric Stimulation,Hot Packs, Infrared Therapy,Ultrasound Next Visit Focus/Plan Next Note Type Treatment Note Next Visit Plan Recheck HEP: LAQ, glut med wall, step ups f/lat, sit to stands, bridges, supine core, sidesteps, piriformis stretches, sciatic n glide. * per MD: only gentle massage and gentle treatment to pelvis region RLE manual for neural mobility , STM gentle to piriformis and along spine B, very gentle MET (avoid direct pelvis mobs) , R foot mobs for improved knee tracking, visceral fascial mobs including around liver Advance hip strength as able
--- NOTE | 2023-12-19 09:47 | PT.OTN ---
Current Diagnoses Pain in unspecified hip (12/19/23) Pain in right knee (12/19/23) Low back pain, unspecified (12/19/23) Difficulty in walking, not elsewhere classified (12/19/23) Abnormal posture (12/19/23) Weakness (12/19/23) Physical Therapy Treatment Note PT-OP-A Visit Information Start: 11/02/23 17:40 Freq: Status: Active Protocol: Document 12/19/23 07:32 [facility] (Rec: 12/19/23 08:20 [facility] [id number]) Out-Patient Physical Therapy Visit Information Visit Information Visit Type Progress Note Visit Note 02/15 Visit Start Time 07:33 Visit Number Number of CELL ROOM OPERATOR Visits 0 PT-OP-B Current Condition Start: 11/02/23 17:40 Freq: Status: Active Protocol: Document 11/07/23 09:06 [facility] (Rec: 11/07/23 09:50 [facility] [id number]) Current Condition History of Current Condition Onset Date spring, about 1 year ago, late summer Current Complaints back pain, L foot numbness, R buttocks to HS History of Current Condition Pt reports they found an insufficency fx found in the Spring but does not note any incident that caused it. When she is leaning at the sink, she gets a tiny sharp pain in R buttocks. L foot MT pad is numb and toes can become numb feeling when walking. hx of R ankle sx year ago arthorscopic to clean up jt after childhood injury. Pt reports pain down leg. Does okay if walking flat, or slight incline, but if have to go up steep hill and feels like R glute grabs and goes down to HS. She has dx of osteoporosis . Started [employer] bones program (gets 4 exercises a week). She is on week 5. Driving is painful for LB and R leg. Has had 2 falls this year, slipping and falling in back yard but didn't notice any pain associated with it. this was after she already had dx. Does see doctor tomorrow. Pt reports R ant knee pain with up/down stairs and hills. This has been for years. Did have feet looked at and got special sneakers and MT pad. R hip is waking her up at 3 am in the AM. Pt reports does have a fatty liver (just barely) Prior Treatments and Tests CT: IMPRESSION: No nephrolithiasis or filling defects within the opacified renal collecting system or ureters. Right sacral ala insufficiency fracture. A few pulmonary micro nodules in the lung bases. Consider 12 month follow-up if at high risk for developing lung cancer, per Fleischner Society guidelines. Treatment Goals Patient/Caregiver Goals be able to hike/do uneven terrain, what exercises safety frias to stay away from vs do, Be able to drive and feel comfortable (cannot drive greater than 30 min w/o significant pain), be able to kayak PT-OP-C Subjective Start: 11/02/23 17:40 Freq: Status: Active Protocol: Document 12/19/23 07:32 [facility] (Rec: 12/19/23 08:20 [facility] [id number]) OP-PT Subjective Patient Comments Patient Comments Pt reports feels pain with calf stretch and n gldie hard. no longer constant back pain. Still feels it sweeping. Occ feels it when sitting. Patient Reported Progress Improving PT-OP-D Balance Start: 11/02/23 17:40 Freq: Status: Active Protocol: Document 12/19/23 07:32 [facility] (Rec: 12/19/23 08:20 [facility] [id number]) Balance Tests Single Limb Standing Single Limb- Right minor hip drop 27 sec Single Limb- Left >30 sec R trunk rot PT-OP-G Mobility & Gait Start: 11/02/23 17:40 Freq: Status: Active Protocol: Document 11/07/23 09:06 [facility] (Rec: 11/07/23 09:50 [facility] [id number]) OP Gait Assessment Comments Gait Comments dec trunk motion, dec UE swing , harder landing on RLE PT-OP-J Posture/Palpation/Skin Start: 11/02/23 17:40 Freq: Status: Active Protocol: Document 12/19/23 07:32 [facility] (Rec: 12/19/23 08:20 [facility] [id number]) Posture Evaluation Melinda Postural Classification System Melinda Postural Classifications Posterior/Anterior Lumbar Protective Mechanism Left AP 2 Lumbar Protective Mechanism Right AP 1 Lumbar Protective Mechanism Left PA 3 Lumbar Protective Mechanism Right PA 3 PT-OP-K Range of Motion Start: 11/02/23 17:40 Freq: Status: Active Protocol: Document 11/07/23 09:06 [facility] (Rec: 11/07/23 09:50 [facility] [id number]) Ankle and Foot Goniometric Range of Motion Ankle and Foot ROM Limitations Comments 4 in to wall but knee goes more med on R PT-OP-L Special Tests Start: 11/02/23 17:40 Freq: Status: Active Protocol: Document 11/07/23 09:06 [facility] (Rec: 11/07/23 09:50 [facility] [id number]) Special Tests Lumbar Spine Special Tests Straight Leg Raise Test Results positive B Slump Test Results positive B PT-OP-M Strength Start: 11/02/23 17:40 Freq: Status: Active Protocol: Document 12/19/23 07:32 [facility] (Rec: 12/19/23 08:20 [facility] [id number]) Hip Strength Hip Manual Muscle Testing Right Flexion (L2) 4- Good- Extension (S1) 3+ Fair+ Abduction 4+ Good+ Adduction 4 Good External Rotation 4+ Good+ Internal Rotation 5 Normal Left Flexion (L2) 4- Good- Extension (S1) 4 Good Abduction 4+ Good+ Adduction 4- Good- External Rotation 4 Good Internal Rotation 5 Normal Comments pain in R glute w/L ext Knee Strength Knee Manual Muscle Testing Right Flexion (S2) 5 Normal Extension (L3) 5 Normal Left Flexion (S2) 5 Normal Extension (L3) 5 Normal Ankle/Foot Strength Ankle and Foot Manual Muscle Testing Right Dorsiflexion (L4) 5 Normal Plantarflexion (S1) 5 Normal Comments 20 heel raises- pain in knee Left Dorsiflexion (L4) 5 Normal Plantarflexion (S1) 5 Normal Comments 20 heel raises- fatigue in knee PT-OP-Q Treatments Start: 11/02/23 17:40 Freq: Status: Active Protocol: Document 12/19/23 07:32 [facility] (Rec: 12/19/23 08:20 [facility] [id number]) Therapeutic Exercises Prone Exercises hip ext Side bilateral Reps/Minutes 2x8 Comments cues no R innnominate drop Sitting Exercises sciatic n glide Side right Reps/Minutes 8 ea Comments cues smaller range Standing Exercises step ups Standing Exercise Name 1. fwd/bck down 2. lateral step down- added to HEP /c HO Side bilateral Equipment Used 6 step, rail prn Reps/Minutes x8 each Comments cues full knee ext and opp march stretch Standing Exercise Name lean into wall R Reps/Minutes 30 sec Comments 30 sec on step but pain that goes up to back Other Exercises isometric Other Exercise Name B MMT and LPM Manual Therapy Treatment Consent Patient gave verbal consent for manual Yes treatment Soft Tissue Mobilization back Body Location B Mobilization Type Myofascial Release Intensity/Depth Superficial Body Position Sitting Comments w/pelvic tilts HS Body Location R semitendonosis, semimembranosis Mobilization Type Rolling,Sustained Pressure, Other Intensity/Depth Moderate Comments w/AAROM hip flex Joint Mobilizations lumbar Joint R UPA w/pelvic tilts & R sciatic n glide Grade II Body Position Sitting hip Joint R inf glide Comments c/r Neuro Re-Education Treatment Balance Activities SLS Comments B trials Other Activities hip ext Comments 1. s/l hip ext manual facilitation prolonged holds R 2. prone hip ext and innominate ext prolonged holds B PT-OP-T Assessment and Plan Start: 11/02/23 17:40 Freq: Status: Active Protocol: Document 12/19/23 07:32 [facility] (Rec: 12/19/23 08:20 [facility] [id number]) Physical Therapy Assessment Goals balance President Goal (LTG) Pt will be able to do SLS B for 30 sec w/o hip drop or trunk rot 12/18-improved LTG Duration 01/06 activity Short Term Goal (STG) Pt will be able to drive 1 hour w/o significant pain in back and leg. 12/18-has not been driving d/t hand surgery 12/06; last time was still painful prior to that. STG Duration 12/21 President Goal (LTG) Pt will be able to hike hills and uneven terrain w/o inc pain in back, leg or knee. 12/18-feel hills in RLE more ( mostly buttocks) more, downhill and flat ok; knees feel stronger LTG Duration 01/15 strength Short Term Goal (STG) Pt will be indep w/HEP STG Duration achieved advancing as able President Goal (LTG) Pt will score at least 3/5 on LPM in all planes and at least 4+/5 on all BLE MMT to show improved strength to improve ease w/typical mobility. 12/18-improved LTG Duration 01/15 LEFS Impairment 40 Short Term Goal (STG) Pt will improve LEFS score to at least 50 to show improved functional ability. 12/18-45/80 STG Duration 12/09 Retirement Goal (LTG) Pt will improve LEFS score to at least 60 to show improved functional ability. LTG Duration 01/15 Assessment Summary Assessment Pt making good progress w/PT with less pain at R sacrumt hat is sharp and feels like pain is less constant in LB. Still pain w/uphills and extended sitting. She would benefit from cont skilled PT to improved core stability and LE strength and manual to dec pain. Physical Therapy Plan Frequency and Duration Frequency of Treatment 2x/Week Duration of treatment (weeks) 10 Plan of Care Start Date 11/07/23 Plan of Care End Date 01/16/24 Therapeutic Interventions Therapeutic Interventions Balance Training,Home Exercise Program,Joint Mobilizations, Manual Therapy,Neuromuscular Re-education,Patient/Caregiver Education,Self-Care/Home Management,Soft Tissue Mobilization,Taping, Therapeutic Activities, Therapeutic Exercises Modalities Cold Pack/Ice Massage,Electric Stimulation,Hot Packs, Infrared Therapy,Ultrasound Next Visit Focus/Plan Next Note Type Treatment Note Next Visit Plan work on progression of glute activation and strength for strength up hill *per MD: only gentle massage and gentle treatment to pelvis region RLE manual for neural mobility , STM gentle to piriformis and along spine B, very gentle MET (avoid direct pelvis mobs) , R foot mobs for improved knee tracking, visceral fascial mobs including around liver
--- NOTE | 2023-12-25 08:12 | PT.OTN ---
Current Diagnoses Pain in unspecified hip (12/25/23) Pain in right knee (12/25/23) Low back pain, unspecified (12/25/23) Difficulty in walking, not elsewhere classified (12/25/23) Abnormal posture (12/25/23) Weakness (12/25/23) Physical Therapy Treatment Note PT-OP-A Visit Information Start: 11/02/23 17:40 Freq: Status: Active Protocol: Document 12/25/23 07:32 SP (Rec: 12/25/23 08:20 SP [id number]) Out-Patient Physical Therapy Visit Information Visit Information Visit Type Treatment Note Visit Note 03/18 Visit Start Time 07:32 Visit Stop Time 08:12 Visit Number (03/18 with PN) Number of AGRICULTURAL EQUIPMENT SALESPERSON Visits 1 PT-OP-B Current Condition Start: 11/02/23 17:40 Freq: Status: Active Protocol: Document 11/07/23 09:06 [facility] (Rec: 11/07/23 09:50 [facility] [id number]) Current Condition History of Current Condition Onset Date spring, about 1 year ago, late summer Current Complaints back pain, L foot numbness, R buttocks to HS History of Current Condition Pt reports they found an insufficency fx found in the Spring but does not note any incident that caused it. When she is leaning at the sink, she gets a tiny sharp pain in R buttocks. L foot MT pad is numb and toes can become numb feeling when walking. hx of R ankle sx year ago arthorscopic to clean up jt after childhood injury. Pt reports pain down leg. Does okay if walking flat, or slight incline, but if have to go up steep hill and feels like R glute grabs and goes down to HS. She has dx of osteoporosis . Started [employer] program (gets 4 exercises a week). She is on week 5. Driving is painful for LB and R leg. Has had 2 falls this year, slipping and falling in back yard but didn't notice any pain associated with it. this was after she already had dx. Does see doctor tomorrow. Pt reports R ant knee pain with up/down stairs and hills. This has been for years. Did have feet looked at and got special sneakers and MT pad. R hip is waking her up at 3 am in the AM. Pt reports does have a fatty liver (just barely) Prior Treatments and Tests CT: IMPRESSION: No nephrolithiasis or filling defects within the opacified renal collecting system or ureters. Right sacral ala insufficiency fracture. A few pulmonary micro nodules in the lung bases. Consider 12 month follow-up if at high risk for developing lung cancer, per Fleischner Society guidelines. Treatment Goals Patient/Caregiver Goals be able to hike/do uneven terrain, what exercises safety frias to stay away from vs do, Be able to drive and feel comfortable (cannot drive greater than 30 min w/o significant pain), be able to kayak PT-OP-C Subjective Start: 11/02/23 17:40 Freq: Status: Active Protocol: Document 12/25/23 07:32 SP (Rec: 12/25/23 08:20 SP [id number]) OP-PT Subjective Patient Comments Patient Comments Pt reports rode up to [place] and had R LBP pain wasn't as intense but still in her R glut. She arrives with her R hand thumb spike brace holding arm in elbow flexion 90d eg. Just sitting on the plinth feeling little pull central RLB into R glut 3-4/10 . NO pain after last tx. PT-OP-D Balance Start: 11/02/23 17:40 Freq: Status: Active Protocol: Document 12/19/23 07:32 [facility] (Rec: 12/19/23 08:20 [facility] [id number]) Balance Tests Single Limb Standing Single Limb- Right minor hip drop 27 sec Single Limb- Left >30 sec R trunk rot PT-OP-G Mobility & Gait Start: 11/02/23 17:40 Freq: Status: Active Protocol: Document 11/07/23 09:06 [facility] (Rec: 11/07/23 09:50 [facility] [id number]) OP Gait Assessment Comments Gait Comments dec trunk motion, dec UE swing , harder landing on RLE PT-OP-J Posture/Palpation/Skin Start: 11/02/23 17:40 Freq: Status: Active Protocol: Document 12/19/23 07:32 [facility] (Rec: 12/19/23 08:20 [facility] [id number]) Posture Evaluation Melinda Postural Classification System Melinda Postural Classifications Posterior/Anterior Lumbar Protective Mechanism Left AP 2 Lumbar Protective Mechanism Right AP 1 Lumbar Protective Mechanism Left PA 3 Lumbar Protective Mechanism Right PA 3 PT-OP-K Range of Motion Start: 11/02/23 17:40 Freq: Status: Active Protocol: Document 11/07/23 09:06 [facility] (Rec: 11/07/23 09:50 [facility] [id number]) Ankle and Foot Goniometric Range of Motion Ankle and Foot ROM Limitations Comments 4 in to wall but knee goes more med on R PT-OP-L Special Tests Start: 11/02/23 17:40 Freq: Status: Active Protocol: Document 11/07/23 09:06 [facility] (Rec: 11/07/23 09:50 [facility] [id number]) Special Tests Lumbar Spine Special Tests Straight Leg Raise Test Results positive B Slump Test Results positive B PT-OP-M Strength Start: 11/02/23 17:40 Freq: Status: Active Protocol: Document 12/19/23 07:32 [facility] (Rec: 12/19/23 08:20 [facility] [id number]) Hip Strength Hip Manual Muscle Testing Right Flexion (L2) 4- Good- Extension (S1) 3+ Fair+ Abduction 4+ Good+ Adduction 4 Good External Rotation 4+ Good+ Internal Rotation 5 Normal Left Flexion (L2) 4- Good- Extension (S1) 4 Good Abduction 4+ Good+ Adduction 4- Good- External Rotation 4 Good Internal Rotation 5 Normal Comments pain in R glute w/L ext Knee Strength Knee Manual Muscle Testing Right Flexion (S2) 5 Normal Extension (L3) 5 Normal Left Flexion (S2) 5 Normal Extension (L3) 5 Normal Ankle/Foot Strength Ankle and Foot Manual Muscle Testing Right Dorsiflexion (L4) 5 Normal Plantarflexion (S1) 5 Normal Comments 20 heel raises- pain in knee Left Dorsiflexion (L4) 5 Normal Plantarflexion (S1) 5 Normal Comments 20 heel raises- fatigue in knee PT-OP-Q Treatments Start: 11/02/23 17:40 Freq: Status: Active Protocol: Document 12/25/23 07:32 SP (Rec: 12/25/23 08:20 SP [id number]) Therapeutic Exercises Supine Exercises n glide Supine Exercise Name active HS: knee ext w/ankle pump Side right Reps/Minutes 20 ankle pumps Comments post manual Prone Exercises hip ext Side bilateral Reps/Minutes 2x10 Comments Cued PPT/BALL TRUING MACHINE OPERATOR tailbone tuck /c TA to support for back then good glut fac Standing Exercises TA april Standing Exercise Name added to HEP, declined HOs Resistance Tb #3 at feet Reps/Minutes 10 reps Comments cued TA, BALL TRUING MACHINE OPERATOR, maintain space between BLEs- good core effort Glut med at wall Standing Exercise Name HEP Side bilateral Equipment Used bend knee ankle behind stance knee Reps/Minutes 2x10 reps Comments cued set up and slow elevation depression neutral.- good tiring glut med step ups Standing Exercise Name 1. fwd/bck down /c high knee raise2. lateral step down Side bilateral Equipment Used 6 step, rail prn Reps/Minutes x10 each Comments cues full knee ext and opp march resisted walk Standing Exercise Name fwd monster walk/back walk Side bilateral Resistance TB #3 [place] at shins Reps/Minutes 2x20ft ea Comments cues occasional knees // with forefoot and BALL TRUING MACHINE OPERATOR /c TA sidesteps Standing Exercise Name lateral Side bilateral Equipment Used Tb # 3 [place] at shins Reps/Minutes 2x20ft Comments cues occasional knees // with forefoot and BALL TRUING MACHINE OPERATOR /c TA Other Exercises self STMs Other Exercise Name over [place] Labsnis ball R HS Resistance reviewed PRN Equipment Used long sitting- LLE and LUE support Comments sustainted pressure, hip IR/ER vs ankle pump Manual Therapy Treatment Consent Patient gave verbal consent for manual Yes treatment Soft Tissue Mobilization HS Body Location R semitendonosis, semimembranosis Mobilization Type Rolling,Sustained Pressure, Other Intensity/Depth Moderate Body Position Prone Comments w/AROM hip flex/ext glute Body Location R glute and piriformis, QL Mobilization Type Rolling,Sustained Pressure Intensity/Depth Moderate Body Position prone over pillows Comments MWM /c hip IR/ER PT-OP-T Assessment and Plan Start: 11/02/23 17:40 Freq: Status: Active Protocol: Document 12/25/23 07:32 SP (Rec: 12/25/23 08:20 SP [id number]) Physical Therapy Assessment Goals balance Half-Way Goal (LTG) Pt will be able to do SLS B for 30 sec w/o hip drop or trunk rot 12/18-improved LTG Duration 01/06 activity Short Term Goal (STG) Pt will be able to drive 1 hour w/o significant pain in back and leg. 12/18-has not been driving d/t hand surgery 12/06; last time was still painful prior to that. STG Duration 12/21 Half-Way Goal (LTG) Pt will be able to hike hills and uneven terrain w/o inc pain in back, leg or knee. 12/18-feel hills in RLE more ( mostly buttocks) more, downhill and flat ok; knees feel stronger LTG Duration 01/15 strength Short Term Goal (STG) Pt will be indep w/HEP STG Duration achieved advancing as able Manager Bench Goal (LTG) Pt will score at least 3/5 on LPM in all planes and at least 4+/5 on all BLE MMT to show improved strength to improve ease w/typical mobility. 12/18-improved LTG Duration 01/15 LEFS Impairment 40 Short Term Goal (STG) Pt will improve LEFS score to at least 50 to show improved functional ability. 12/18-45/80 STG Duration 12/09 Half-Way Goal (LTG) Pt will improve LEFS score to at least 60 to show improved functional ability. LTG Duration 01/15 Assessment Summary Assessment Pt improved core and glut and hip abd drive effort during ther ex. Improved understanding PPT neutral with TA fac for decreased LB recruitment. Good response to self STMs use tball under HS for carryover home application . No pain leavign today. Physical Therapy Plan Frequency and Duration Frequency of Treatment 2x/Week Duration of treatment (weeks) 10 Plan of Care Start Date 11/07/23 Plan of Care End Date 01/16/24 Therapeutic Interventions Therapeutic Interventions Balance Training,Home Exercise Program,Joint Mobilizations, Manual Therapy,Neuromuscular Re-education,Patient/Caregiver Education,Self-Care/Home Management,Soft Tissue Mobilization,Taping, Therapeutic Activities, Therapeutic Exercises Modalities Cold Pack/Ice Massage,Electric Stimulation,Hot Packs, Infrared Therapy,Ultrasound Next Visit Focus/Plan Next Note Type Treatment Note Next Visit Plan work on progression of glute activation and strength for strength up hill *per MD: only gentle massage and gentle treatment to pelvis region RLE manual for neural mobility , STM gentle to piriformis and along spine B, very gentle MET (avoid direct pelvis mobs) , R foot mobs for improved knee tracking, visceral fascial mobs including around liver
--- NOTE | 2024-01-09 09:46 | PT.OTN ---
Addendum entered and electronically signed by lOivia Hernandez, PT 01/16/24 17:53: PT present for 15 min of session to assess pt progress and direct ASW/ASUW TACTICAL AIR CONTROLLER Original Note: Current Diagnoses Pain in unspecified hip (01/09/24) Pain in right knee (01/09/24) Low back pain, unspecified (01/09/24) Difficulty in walking, not elsewhere classified (01/09/24) Abnormal posture (01/09/24) Weakness (01/09/24) Physical Therapy Treatment Note PT-OP-A Visit Information Start: 11/02/23 17:40 Freq: Status: Active Protocol: Document 01/09/24 09:06 SP (Rec: 01/10/24 16:35 SP [id number]) Out-Patient Physical Therapy Visit Information Visit Information Visit Type Treatment Note Visit Note 04/15 Visit Start Time 09:05 Visit Stop Time 09:46 Visit Number (03/18 with PN) Number of ASW/ASUW TACTICAL AIR CONTROLLER Visits 2 PT-OP-B Current Condition Start: 11/02/23 17:40 Freq: Status: Active Protocol: Document 11/07/23 09:06 [facility] (Rec: 11/07/23 09:50 [facility] [id number]) Current Condition History of Current Condition Onset Date spring, about 1 year ago, late summer Current Complaints back pain, L foot numbness, R buttocks to HS History of Current Condition Pt reports they found an insufficency fx found in the Spring but does not note any incident that caused it. When she is leaning at the sink, she gets a tiny sharp pain in R buttocks. L foot MT pad is numb and toes can become numb feeling when walking. hx of R ankle sx year ago arthorscopic to clean up jt after childhood injury. Pt reports pain down leg. Does okay if walking flat, or slight incline, but if have to go up steep hill and feels like R glute grabs and goes down to HS. She has dx of osteoporosis . Started [employer] program (gets 4 exercises a week). She is on week 5. Driving is painful for LB and R leg. Has had 2 falls this year, slipping and falling in back yard but didn't notice any pain associated with it. this was after she already had dx. Does see doctor tomorrow. Pt reports R ant knee pain with up/down stairs and hills. This has been for years. Did have feet looked at and got special sneakers and MT pad. R hip is waking her up at 3 am in the AM. Pt reports does have a fatty liver (just barely) Prior Treatments and Tests CT: IMPRESSION: No nephrolithiasis or filling defects within the opacified renal collecting system or ureters. Right sacral ala insufficiency fracture. A few pulmonary micro nodules in the lung bases. Consider 12 month follow-up if at high risk for developing lung cancer, per Fleischner Society guidelines. Treatment Goals Patient/Caregiver Goals be able to hike/do uneven terrain, what exercises safety frias to stay away from vs do, Be able to drive and feel comfortable (cannot drive greater than 30 min w/o significant pain), be able to kayak PT-OP-C Subjective Start: 11/02/23 17:40 Freq: Status: Active Protocol: Document 01/09/24 09:06 SP (Rec: 01/10/24 16:35 SP [id number]) OP-PT Subjective Patient Comments Patient Comments Pt reports pain into L hip recently when woke up and still radicular ache in R leg and not needing to driving much. She took the bus from [place] to [facility] and caused pain in R leg. Patient Questionnaires Lower Extremity Functional Scale LEFS Score 57 LEFS Impairment 20 to 39% Impaired (Score 48- 62) PT-OP-D Balance Start: 11/02/23 17:40 Freq: Status: Active Protocol: Document 12/19/23 07:32 [facility] (Rec: 12/19/23 08:20 [facility] [id number]) Balance Tests Single Limb Standing Single Limb- Right minor hip drop 27 sec Single Limb- Left >30 sec R trunk rot PT-OP-G Mobility & Gait Start: 11/02/23 17:40 Freq: Status: Active Protocol: Document 11/07/23 09:06 [facility] (Rec: 11/07/23 09:50 [facility] [id number]) OP Gait Assessment Comments Gait Comments dec trunk motion, dec UE swing , harder landing on RLE PT-OP-J Posture/Palpation/Skin Start: 11/02/23 17:40 Freq: Status: Active Protocol: Document 01/09/24 09:05 [facility] (Rec: 01/09/24 09:23 [facility] [id number]) Posture Evaluation [facility] Postural Classification System Lumbar Protective Mechanism Left AP 1 Lumbar Protective Mechanism Right AP 2 Lumbar Protective Mechanism Left PA 4 Lumbar Protective Mechanism Right PA 2 PT-OP-K Range of Motion Start: 11/02/23 17:40 Freq: Status: Active Protocol: Document 11/07/23 09:06 [facility] (Rec: 11/07/23 09:50 [facility] [id number]) Ankle and Foot Goniometric Range of Motion Ankle and Foot ROM Limitations Comments 4 in to wall but knee goes more med on R PT-OP-L Special Tests Start: 11/02/23 17:40 Freq: Status: Active Protocol: Document 11/07/23 09:06 [facility] (Rec: 11/07/23 09:50 [facility] [id number]) Special Tests Lumbar Spine Special Tests Straight Leg Raise Test Results positive B Slump Test Results positive B PT-OP-M Strength Start: 11/02/23 17:40 Freq: Status: Active Protocol: Document 01/09/24 09:05 [facility] (Rec: 01/09/24 09:23 [facility] [id number]) Hip Strength Hip Manual Muscle Testing Right Flexion (L2) 4 Good Extension (S1) 4 Good Abduction 4+ Good+ Adduction 4 Good External Rotation 5 Normal Internal Rotation 5 Normal Left Flexion (L2) 4 Good Extension (S1) 5 Normal Abduction 4+ Good+ Adduction 4 Good External Rotation 5 Normal Internal Rotation 5 Normal Knee Strength Knee Manual Muscle Testing Right Flexion (S2) 5 Normal Extension (L3) 5 Normal Left Flexion (S2) 5 Normal Extension (L3) 5 Normal PT-OP-Q Treatments Start: 11/02/23 17:40 Freq: Status: Active Protocol: Document 01/09/24 09:06 SP (Rec: 01/10/24 16:35 SP [id number]) Therapeutic Exercises Supine Exercises isometric Supine Exercise Name DKTC flex Side bilateral Reps/Minutes 30 sec x2 Comments good core Prone Exercises hip ext Side bilateral Reps/Minutes 2x10 Comments applied pressure R posterior ilium, improved TA and ES engagement Manual Therapy Treatment Consent Patient gave verbal consent for manual Yes treatment Soft Tissue Mobilization back Body Location B Mobilization Type Myofascial Release Intensity/Depth Superficial Body Position Sitting Comments w/pelvic tilts glute Body Location R glute and piriformis, QL Mobilization Type Rolling,Sustained Pressure Intensity/Depth Moderate Body Position prone over pillows Comments MWM /c hip IR/ER Other Other Manual Treatments L SL: R hip anterior elevation /c TA Seated: contract relax: resistance against PPT, improved TA and AROM on R anterior tilt. PT-OP-T Assessment and Plan Start: 11/02/23 17:40 Freq: Status: Active Protocol: Document 01/09/24 09:06 SP (Rec: 01/10/24 16:35 SP [id number]) Physical Therapy Assessment Goals balance Skylights Assembler Goal (LTG) Pt will be able to do SLS B for 30 sec w/o hip drop or trunk rot 12/18-improved LTG Duration 01/06 activity Short Term Goal (STG) Pt will be able to drive 1 hour w/o significant pain in back and leg. 12/18-has not been driving d/t hand surgery 12/06; last time was still painful prior to that. 01/09/24: pain with bus ride to [facility] R>L leg. STG Duration 12/21 slow progression relief 01/09/24 Skilled Nursing Goal (LTG) Pt will be able to hike hills and uneven terrain w/o inc pain in back, leg or knee. 12/18-feel hills in RLE more ( mostly buttocks) more, downhill and flat ok; knees feel stronger 01/09/24: MET GOAL: no pain walking, slight hills & gravel , no pian up and down. Hasn't tried uneven terrain. LTG Duration 01/15 MET GOAL strength Short Term Goal (STG) Pt will be indep w/HEP STG Duration achieved advancing as able Skilled Nursing Goal (LTG) Pt will score at least 3/5 on LPM in all planes and at least 4+/5 on all BLE MMT to show improved strength to improve ease w/typical mobility. 12/18-improved 01/09/24: improved progressing 4 to 4+/5 over all LTG Duration 01/15 progressing 01/09/24 LEFS Impairment 40 Short Term Goal (STG) Pt will improve LEFS score to at least 50 to show improved functional ability. 12/18-45/80 01/09/24: GOAL MET: 57/80 STG Duration 12/09 GOAL MET Skylights Assembler Goal (LTG) Pt will improve LEFS score to at least 60 to show improved functional ability. 01/09/24: GOAL MET: 57/80 LTG Duration 01/15m progressing 01/09/24 Assessment Summary Assessment PT present this session, assisted assessment goal progression. Pt making progress in strength and functional mobility. Reports pain, although better than when started PT, continues across low back that radiates achiness down R leg. Although hasn't driven herself much, is still uncomfortable across low back short distances as passengar. Is compliant with HEP with demonstration of weakness R>L in core and hip flexion, ext, abduction and adduction. Pt reports decreased pain into R low back and leg post manual and addition of core isometric to HEP /c HO today. Pt would benefit from continued skilled PT. Physical Therapy Plan Frequency and Duration Frequency of Treatment 2x/Week Duration of treatment (weeks) 10 Plan of Care Start Date 11/07/23 Plan of Care End Date 01/16/24 Therapeutic Interventions Therapeutic Interventions Balance Training,Home Exercise Program,Joint Mobilizations, Manual Therapy,Neuromuscular Re-education,Patient/Caregiver Education,Self-Care/Home Management,Soft Tissue Mobilization,Taping, Therapeutic Activities, Therapeutic Exercises Modalities Cold Pack/Ice Massage,Electric Stimulation,Hot Packs, Infrared Therapy,Ultrasound Next Visit Focus/Plan Next Note Type Treatment Note Next Visit Plan Next: R QL, ES, core and glut activation and strength for strength up hil. Prone R hip ext, manual R innominent. * per MD: only gentle massage and gentle treatment to pelvis region Next tx: assess SLS goal. Continue RLE manual for neural mobility, TA R>L POC: Manual STM gentle to piriformis and along spine B, very gentle MET (avoid direct pelvis mobs), R foot mobs for improved knee tracking, visceral fascial mobs including around liver
--- NOTE | 2024-01-09 13:25 | PT.OPPN ---
Current Diagnoses Pain in unspecified hip (01/09/24) Pain in right knee (01/09/24) Low back pain, unspecified (01/09/24) Difficulty in walking, not elsewhere classified (01/09/24) Abnormal posture (01/09/24) Weakness (01/09/24) Physical Therapy Progress Note PT-OP-A Visit Information Start: 11/02/23 17:40 Freq: Status: Active Protocol: Document 01/09/24 09:06 SP (Rec: 01/10/24 16:35 SP [id number]) Out-Patient Physical Therapy Visit Information Visit Information Visit Type Treatment Note Visit Note 04/15 Visit Start Time 09:05 Visit Stop Time 09:46 Visit Number (03/18 with PN) Number of BIOLOGY FACULTY MEMBER Visits 2 PT-OP-B Current Condition Start: 11/02/23 17:40 Freq: Status: Active Protocol: Document 11/07/23 09:06 [facility] (Rec: 11/07/23 09:50 [facility] [id number]) Current Condition History of Current Condition Onset Date spring, about 1 year ago, late summer Current Complaints back pain, L foot numbness, R buttocks to HS History of Current Condition Pt reports they found an insufficency fx found in the Spring but does not note any incident that caused it. When she is leaning at the sink, she gets a tiny sharp pain in R buttocks. L foot MT pad is numb and toes can become numb feeling when walking. hx of R ankle sx year ago arthorscopic to clean up jt after childhood injury. Pt reports pain down leg. Does okay if walking flat, or slight incline, but if have to go up steep hill and feels like R glute grabs and goes down to HS. She has dx of osteoporosis . Started [employer] program (gets 4 exercises a week). She is on week 5. Driving is painful for LB and R leg. Has had 2 falls this year, slipping and falling in back yard but didn't notice any pain associated with it. this was after she already had dx. Does see doctor tomorrow. Pt reports R ant knee pain with up/down stairs and hills. This has been for years. Did have feet looked at and got special sneakers and MT pad. R hip is waking her up at 3 am in the AM. Pt reports does have a fatty liver (just barely) Prior Treatments and Tests CT: IMPRESSION: No nephrolithiasis or filling defects within the opacified renal collecting system or ureters. Right sacral ala insufficiency fracture. A few pulmonary micro nodules in the lung bases. Consider 12 month follow-up if at high risk for developing lung cancer, per Fleischner Society guidelines. Treatment Goals Patient/Caregiver Goals be able to hike/do uneven terrain, what exercises safety frias to stay away from vs do, Be able to drive and feel comfortable (cannot drive greater than 30 min w/o significant pain), be able to kayak PT-OP-C Subjective Start: 11/02/23 17:40 Freq: Status: Active Protocol: Document 01/09/24 09:06 SP (Rec: 01/10/24 16:35 SP [id number]) OP-PT Subjective Patient Comments Patient Comments Pt reports pain into L hip recently when woke up and still radicular ache in R leg and not needing to driving much. She took the bus from [place] to [facility] and caused pain in R leg. Patient Questionnaires Lower Extremity Functional Scale LEFS Score 57 LEFS Impairment 20 to 39% Impaired (Score 48- 62) PT-OP-D Balance Start: 11/02/23 17:40 Freq: Status: Active Protocol: Document 12/19/23 07:32 [facility] (Rec: 12/19/23 08:20 [facility] [id number]) Balance Tests Single Limb Standing Single Limb- Right minor hip drop 27 sec Single Limb- Left >30 sec R trunk rot PT-OP-G Mobility & Gait Start: 11/02/23 17:40 Freq: Status: Active Protocol: Document 11/07/23 09:06 [facility] (Rec: 11/07/23 09:50 [facility] [id number]) OP Gait Assessment Comments Gait Comments dec trunk motion, dec UE swing , harder landing on RLE PT-OP-J Posture/Palpation/Skin Start: 11/02/23 17:40 Freq: Status: Active Protocol: Document 01/09/24 13:22 [facility] (Rec: 01/09/24 09:23 [facility] [id number]) Posture Evaluation Melinda Postural Classification System Lumbar Protective Mechanism Left AP 1 Lumbar Protective Mechanism Right AP 2 Lumbar Protective Mechanism Left PA 4 Lumbar Protective Mechanism Right PA 2 PT-OP-K Range of Motion Start: 11/02/23 17:40 Freq: Status: Active Protocol: Document 11/07/23 09:06 [facility] (Rec: 11/07/23 09:50 [facility] [id number]) Ankle and Foot Goniometric Range of Motion Ankle and Foot ROM Limitations Comments 4 in to wall but knee goes more med on R PT-OP-L Special Tests Start: 11/02/23 17:40 Freq: Status: Active Protocol: Document 11/07/23 09:06 [facility] (Rec: 11/07/23 09:50 [facility] [id number]) Special Tests Lumbar Spine Special Tests Straight Leg Raise Test Results positive B Slump Test Results positive B PT-OP-M Strength Start: 11/02/23 17:40 Freq: Status: Active Protocol: Document 01/09/24 13:22 [facility] (Rec: 01/09/24 09:23 [facility] [id number]) Hip Strength Hip Manual Muscle Testing Right Flexion (L2) 4 Good Extension (S1) 4 Good Abduction 4+ Good+ Adduction 4 Good External Rotation 5 Normal Internal Rotation 5 Normal Left Flexion (L2) 4 Good Extension (S1) 5 Normal Abduction 4+ Good+ Adduction 4 Good External Rotation 5 Normal Internal Rotation 5 Normal Knee Strength Knee Manual Muscle Testing Right Flexion (S2) 5 Normal Extension (L3) 5 Normal Left Flexion (S2) 5 Normal Extension (L3) 5 Normal PT-OP-T Assessment and Plan Start: 11/02/23 17:40 Freq: Status: Active Protocol: Document 01/09/24 13:22 [facility] (Rec: 01/11/24 13:24 [facility] [id number]) Physical Therapy Assessment Goals balance Motion Picture Director Goal (LTG) Pt will be able to do SLS B for 30 sec w/o hip drop or trunk rot 12/18-improved LTG Duration 02/21 activity Short Term Goal (STG) Pt will be able to drive 1 hour w/o significant pain in back and leg. 12/18-has not been driving d/t hand surgery 12/06; last time was still painful prior to that. 01/09/24: pain with bus ride to [facility] R>L leg. STG Duration 02/06 slow progression relief Motion Picture Director Goal (LTG) Pt will be able to hike hills and uneven terrain w/o inc pain in back, leg or knee. 12/18-feel hills in RLE more ( mostly buttocks) more, downhill and flat ok; knees feel stronger 01/09/24: MET GOAL: no pain walking, slight hills & gravel , no pian up and down. Hasn't tried uneven terrain. LTG Duration 01/15 MET GOAL strength Short Term Goal (STG) Pt will be indep w/HEP STG Duration achieved advancing as able Motion Picture Director Goal (LTG) Pt will score at least 3/5 on LPM in all planes and at least 4+/5 on all BLE MMT to show improved strength to improve ease w/typical mobility. 12/18-improved 01/09/24: improved progressing 4 to 4+/5 over all LTG Duration 02/21 progressing 01/09/24 LEFS Impairment 40 Short Term Goal (STG) Pt will improve LEFS score to at least 50 to show improved functional ability. 12/18-45/01/09/24: GOAL MET: 57/80 STG Duration 12/09 GOAL MET Intermediate Goal (LTG) Pt will improve LEFS score to at least 60 to show improved functional ability. 01/09/24:progress 57/80 LTG Duration 02/21 progressing 01/09/24 Assessment Summary Assessment Pt is making some progress w/ PT but does still have significant pain w/sitting that limits the time she can sit. She cont to have pain that radiates down RLE and across LB. Stll has core and LE weakness and would benefit from cont skilled PT for further pain relief and improvement in function. Physical Therapy Plan Frequency and Duration Frequency of Treatment 2x/Week Duration of treatment (weeks) 6 Plan of Care Start Date 01/09/24 Plan of Care End Date 02/22/24 Therapeutic Interventions Therapeutic Interventions Balance Training,Home Exercise Program,Joint Mobilizations, Manual Therapy,Neuromuscular Re-education,Patient/Caregiver Education,Self-Care/Home Management,Soft Tissue Mobilization,Taping, Therapeutic Activities, Therapeutic Exercises Modalities Cold Pack/Ice Massage,Electric Stimulation,Hot Packs, Infrared Therapy,Ultrasound Next Visit Focus/Plan Next Note Type Treatment Note Next Visit Plan Next: R QL, ES, core and glut activation and strength for strength up hil. Prone R hip ext, manual R innominent. * per MD: only gentle massage and gentle treatment to pelvis region Next tx: assess SLS goal. Continue RLE manual for neural mobility, TA R>L POC: Manual STM gentle to piriformis and along spine B, very gentle MET (avoid direct pelvis mobs), R foot mobs for improved knee tracking, visceral fascial mobs including around liver
--- NOTE | 2024-01-17 15:21 | PT.OTN ---
Current Diagnoses Pain in unspecified hip (01/17/24) Pain in right knee (01/17/24) Low back pain, unspecified (01/17/24) Difficulty in walking, not elsewhere classified (01/17/24) Abnormal posture (01/17/24) Weakness (01/17/24) Physical Therapy Treatment Note PT-OP-A Visit Information Start: 11/02/23 17:40 Freq: Status: Active Protocol: Document 01/17/24 14:41 SP (Rec: 01/17/24 15:59 SP [id number]) Out-Patient Physical Therapy Visit Information Visit Information Visit Type Treatment Note Visit Note 05/16 Visit Start Time 14:41 Visit Stop Time 15:21 Visit Number (03/18 with PN) Number of TAKER OFF Visits 3 Precautions Precautions hx of sacral ala fx earlier this year PT-OP-B Current Condition Start: 11/02/23 17:40 Freq: Status: Active Protocol: Document 11/07/23 09:06 [facility] (Rec: 11/07/23 09:50 [facility] [id number]) Current Condition History of Current Condition Onset Date spring, about 1 year ago, late summer Current Complaints back pain, L foot numbness, R buttocks to HS History of Current Condition Pt reports they found an insufficency fx found in the Spring but does not note any incident that caused it. When she is leaning at the sink, she gets a tiny sharp pain in R buttocks. L foot MT pad is numb and toes can become numb feeling when walking. hx of R ankle sx year ago arthorscopic to clean up jt after childhood injury. Pt reports pain down leg. Does okay if walking flat, or slight incline, but if have to go up steep hill and feels like R glute grabs and goes down to HS. She has dx of osteoporosis . Started [employer] program (gets 4 exercises a week). She is on week 5. Driving is painful for LB and R leg. Has had 2 falls this year, slipping and falling in back yard but didn't notice any pain associated with it. this was after she already had dx. Does see doctor tomorrow. Pt reports R ant knee pain with up/down stairs and hills. This has been for years. Did have feet looked at and got special sneakers and MT pad. R hip is waking her up at 3 am in the AM. Pt reports does have a fatty liver (just barely) Prior Treatments and Tests CT: IMPRESSION: No nephrolithiasis or filling defects within the opacified renal collecting system or ureters. Right sacral ala insufficiency fracture. A few pulmonary micro nodules in the lung bases. Consider 12 month follow-up if at high risk for developing lung cancer, per Fleischner Society guidelines. Treatment Goals Patient/Caregiver Goals be able to hike/do uneven terrain, what exercises safety frias to stay away from vs do, Be able to drive and feel comfortable (cannot drive greater than 30 min w/o significant pain), be able to kayak PT-OP-C Subjective Start: 11/02/23 17:40 Freq: Status: Active Protocol: Document 01/17/24 14:41 SP (Rec: 01/17/24 15:59 SP [id number]) OP-PT Subjective Patient Comments Patient Comments Pt reports no pain with walks now. But still pressure painful posterior superior bilateral ilium, even by end day hurts to sit R>L. Icing has helped. Doing exercises, noticed HS stretch only isolated tension discomfort on R into upper glut at ilium and LAQ discomfort HS tension. Continue prone LE ext and resisted stepping. Wants to review fwd and backward doing correctly. PT-OP-D Balance Start: 11/02/23 17:40 Freq: Status: Active Protocol: Document 12/19/23 07:32 [facility] (Rec: 12/19/23 08:20 [facility] [id number]) Balance Tests Single Limb Standing Single Limb- Right minor hip drop 27 sec Single Limb- Left >30 sec R trunk rot PT-OP-G Mobility & Gait Start: 11/02/23 17:40 Freq: Status: Active Protocol: Document 11/07/23 09:06 [facility] (Rec: 11/07/23 09:50 [facility] [id number]) OP Gait Assessment Comments Gait Comments dec trunk motion, dec UE swing , harder landing on RLE PT-OP-J Posture/Palpation/Skin Start: 11/02/23 17:40 Freq: Status: Active Protocol: Document 01/09/24 13:22 [facility] (Rec: 01/09/24 09:23 [facility] [id number]) Posture Evaluation Melinda Postural Classification System Lumbar Protective Mechanism Left AP 1 Lumbar Protective Mechanism Right AP 2 Lumbar Protective Mechanism Left PA 4 Lumbar Protective Mechanism Right PA 2 PT-OP-K Range of Motion Start: 11/02/23 17:40 Freq: Status: Active Protocol: Document 11/07/23 09:06 [facility] (Rec: 11/07/23 09:50 [facility] [id number]) Ankle and Foot Goniometric Range of Motion Ankle and Foot ROM Limitations Comments 4 in to wall but knee goes more med on R PT-OP-L Special Tests Start: 11/02/23 17:40 Freq: Status: Active Protocol: Document 11/07/23 09:06 [facility] (Rec: 11/07/23 09:50 [facility] [id number]) Special Tests Lumbar Spine Special Tests Straight Leg Raise Test Results positive B Slump Test Results positive B PT-OP-M Strength Start: 11/02/23 17:40 Freq: Status: Active Protocol: Document 01/09/24 13:22 [facility] (Rec: 01/09/24 09:23 [facility] [id number]) Hip Strength Hip Manual Muscle Testing Right Flexion (L2) 4 Good Extension (S1) 4 Good Abduction 4+ Good+ Adduction 4 Good External Rotation 5 Normal Internal Rotation 5 Normal Left Flexion (L2) 4 Good Extension (S1) 5 Normal Abduction 4+ Good+ Adduction 4 Good External Rotation 5 Normal Internal Rotation 5 Normal Knee Strength Knee Manual Muscle Testing Right Flexion (S2) 5 Normal Extension (L3) 5 Normal Left Flexion (S2) 5 Normal Extension (L3) 5 Normal PT-OP-Q Treatments Start: 11/02/23 17:40 Freq: Status: Active Protocol: Document 01/17/24 14:41 SP (Rec: 01/17/24 15:59 SP [id number]) Therapeutic Exercises Supine Exercises resisted clamshell Supine Exercise Name added to HEP /c HO Side bilateral Resistance Tb #2 teal Reps/Minutes x10 Comments arms side self check level pelvis, slow pacing hip ER/ ecc IR return Prone Exercises hip ext Side bilateral Reps/Minutes 2x10 Comments improved TA and ES do contraction pnfree range Diego Standing Exercises resisted walk Standing Exercise Name fwd monster walk/back walk Side bilateral Resistance TB #3 [place] at shins Reps/Minutes 2x20ft ea Comments cues occasional knees // with forefoot and HEALTH EDUCATION COORDINATOR /c TA sidesteps Standing Exercise Name lateral Side bilateral Equipment Used Tb # 3 tetlin gree at shins Reps/Minutes 2x20ft Comments cues occasional knees // with forefoot and HEALTH EDUCATION COORDINATOR /c TA Manual Therapy Treatment Consent Patient gave verbal consent for manual Yes treatment Soft Tissue Mobilization back Body Location B QL & iliacus Mobilization Type Sustained Pressure,Other Intensity/Depth Moderate Body Position L SL Comments MWM with breath & pelvit tilts each glute Body Location R glute and piriformis Mobilization Type Rolling,Sustained Pressure Intensity/Depth Moderate Body Position prone over pillows Comments L SL: R MWM hip ER/IR /c glut med & pirif PT-OP-T Assessment and Plan Start: 11/02/23 17:40 Freq: Status: Active Protocol: Document 01/17/24 14:41 SP (Rec: 01/17/24 15:59 SP [id number]) Physical Therapy Assessment Goals balance [employer] Goal (LTG) Pt will be able to do SLS B for 30 sec w/o hip drop or trunk rot 12/18-improved LTG Duration 02/21 activity Short Term Goal (STG) Pt will be able to drive 1 hour w/o significant pain in back and leg. 12/18-has not been driving d/t hand surgery 12/06; last time was still painful prior to that. 01/09/24: pain with bus ride to [facility] R>L leg. STG Duration 02/06 slow progression relief [facility] Goal (LTG) Pt will be able to hike hills and uneven terrain w/o inc pain in back, leg or knee. 12/18-feel hills in RLE more ( mostly buttocks) more, downhill and flat ok; knees feel stronger 01/09/24: MET GOAL: no pain walking, slight hills & gravel , no pian up and down. Hasn't tried uneven terrain. LTG Duration 01/15 MET GOAL strength Short Term Goal (STG) Pt will be indep w/HEP STG Duration achieved advancing as able [facility] Goal (LTG) Pt will score at least 3/5 on LPM in all planes and at least 4+/5 on all BLE MMT to show improved strength to improve ease w/typical mobility. 12/18-improved 01/09/24: improved progressing 4 to 4+/5 over all LTG Duration 02/21 progressing 01/09/24 LEFS Impairment 40 Short Term Goal (STG) Pt will improve LEFS score to at least 50 to show improved functional ability. 12/18-4501/09/24: GOAL MET: 57/80 STG Duration 12/09 GOAL MET [employer] Goal (LTG) Pt will improve LEFS score to at least 60 to show improved functional ability. 01/09/24:progress 57/80 LTG Duration 02/21 progressing 01/09/24 Assessment Summary Assessment PT provided recommended to pt during tx contact physician and see if further imaging of R hip/ SI and if candidate injection for pain relief. Pt reported decreased tightness post manual today. Improved TA and co-contraction with ES during LE extension level pelvis today with no pain reported. Initiated resisted hooklying clamshell for TA and hip abd strengthening /c HO, cues for level pelvis and slow pacing control, improved eccentric rep performance with no pain. Utilized mirror and cues for level pelvis and R hip ER maintain knee alignment and TA fac during resisted stepping, no pain noted pelvic and trunk alignment corrrections with TA support. Physical Therapy Plan Frequency and Duration Frequency of Treatment 2x/Week Duration of treatment (weeks) 6 Plan of Care Start Date 01/09/24 Plan of Care End Date 02/22/24 Therapeutic Interventions Therapeutic Interventions Balance Training,Home Exercise Program,Joint Mobilizations, Manual Therapy,Neuromuscular Re-education,Patient/Caregiver Education,Self-Care/Home Management,Soft Tissue Mobilization,Taping, Therapeutic Activities, Therapeutic Exercises Modalities Cold Pack/Ice Massage,Electric Stimulation,Hot Packs, Infrared Therapy,Ultrasound Next Visit Focus/Plan Next Note Type Treatment Note Next Visit Plan Next: REview form resisted clamshell and band walk for pelvic alignment and strengthening. Assess SLS goal . Continue progress R QL & ES, core and glut activation and strength for strength up hil. Prone R hip ext, Continue RLE manual for neural innominent mobillity as needed. *per MD: only gentle massage and gentle treatment to pelvis region. POC: Manual STM gentle to piriformis and along spine B, very gentle MET (avoid direct pelvis mobs), R foot mobs for improved knee tracking, visceral fascial mobs including around liver
--- NOTE | 2024-01-23 16:29 | PT.OTN ---
Current Diagnoses Pain in unspecified hip (01/23/24) Pain in right knee (01/23/24) Low back pain, unspecified (01/23/24) Difficulty in walking, not elsewhere classified (01/23/24) Abnormal posture (01/23/24) Weakness (01/23/24) Physical Therapy Treatment Note PT-OP-A Visit Information Start: 11/02/23 17:40 Freq: Status: Active Protocol: Document 01/23/24 08:24 [facility] (Rec: 01/23/24 16:29 [facility] [id number]) Out-Patient Physical Therapy Visit Information Visit Information Visit Type Treatment Note Visit Start Time 08:23 Visit Stop Time 09:02 Visit Number 60 (3/10 PN) Number of TRANSIT MAN Visits 0 PT-OP-B Current Condition Start: 11/02/23 17:40 Freq: Status: Active Protocol: Document 11/07/23 09:06 [facility] (Rec: 11/07/23 09:50 [facility] [id number]) Current Condition History of Current Condition Onset Date spring, about 1 year ago, late summer Current Complaints back pain, L foot numbness, R buttocks to HS History of Current Condition Pt reports they found an insufficency fx found in the Spring but does not note any incident that caused it. When she is leaning at the sink, she gets a tiny sharp pain in R buttocks. L foot MT pad is numb and toes can become numb feeling when walking. hx of R ankle sx year ago arthorscopic to clean up jt after childhood injury. Pt reports pain down leg. Does okay if walking flat, or slight incline, but if have to go up steep hill and feels like R glute grabs and goes down to HS. She has dx of osteoporosis . Started [employer] bones program (gets 4 exercises a week). She is on week 5. Driving is painful for LB and R leg. Has had 2 falls this year, slipping and falling in back yard but didn't notice any pain associated with it. this was after she already had dx. Does see doctor tomorrow. Pt reports R ant knee pain with up/down stairs and hills. This has been for years. Did have feet looked at and got special sneakers and MT pad. R hip is waking her up at 3 am in the AM. Pt reports does have a fatty liver (just barely) Prior Treatments and Tests CT: IMPRESSION: No nephrolithiasis or filling defects within the opacified renal collecting system or ureters. Right sacral ala insufficiency fracture. A few pulmonary micro nodules in the lung bases. Consider 12 month follow-up if at high risk for developing lung cancer, per Fleischner Society guidelines. Treatment Goals Patient/Caregiver Goals be able to hike/do uneven terrain, what exercises safety frias to stay away from vs do, Be able to drive and feel comfortable (cannot drive greater than 30 min w/o significant pain), be able to kayak PT-OP-C Subjective Start: 11/02/23 17:40 Freq: Status: Active Protocol: Document 01/23/24 08:24 [facility] (Rec[facility] 01/23/24 16:29 [id number]-PT Subjective Patient Comments Patient Comments Pt reports sitting on the couch and in a chair w/pillow behind back. Bus and car seat inc pain. feels better w/prone hip ext. PT-OP-D Balance Start: 11/02/23 17:40 Freq: Status: Active Protocol: Document 12/19/23 07:32 [facility] (Rec: 12/19/23 08:20 [facility] [id number]) Balance Tests Single Limb Standing Single Limb- Right minor hip drop 27 sec Single Limb- Left >30 sec R trunk rot PT-OP-G Mobility & Gait Start: 11/02/23 17:40 Freq: Status: Active Protocol: Document 11/07/23 09:06 [facility] (Rec: 11/07/23 09:50 [facility] [id number]) OP Gait Assessment Comments Gait Comments dec trunk motion, dec UE swing , harder landing on RLE PT-OP-J Posture/Palpation/Skin Start: 11/02/23 17:40 Freq: Status: Active Protocol: Document 01/09/24 13:22 [facility] (Rec: 01/09/24 09:23 [facility] [id number]) Posture Evaluation [facility] Postural Classification System Lumbar Protective Mechanism Left AP 1 Lumbar Protective Mechanism Right AP 2 Lumbar Protective Mechanism Left PA 4 Lumbar Protective Mechanism Right PA 2 PT-OP-K Range of Motion Start: 11/02/23 17:40 Freq: Status: Active Protocol: Document 11/07/23 09:06 [facility] (Rec: 11/07/23 09:50 [facility] [id number]) Ankle and Foot Goniometric Range of Motion Ankle and Foot ROM Limitations Comments 4 in to wall but knee goes more med on R PT-OP-L Special Tests Start: 11/02/23 17:40 Freq: Status: Active Protocol: Document 11/07/23 09:06 [facility] (Rec: 11/07/23 09:50 [facility] [id number]) Special Tests Lumbar Spine Special Tests Straight Leg Raise Test Results positive B Slump Test Results positive B PT-OP-M Strength Start: 11/02/23 17:40 Freq: Status: Active Protocol: Document 01/09/24 13:22 [facility] (Rec: 01/09/24 09:23 [facility] [id number]) Hip Strength Hip Manual Muscle Testing Right Flexion (L2) 4 Good Extension (S1) 4 Good Abduction 4+ Good+ Adduction 4 Good External Rotation 5 Normal Internal Rotation 5 Normal Left Flexion (L2) 4 Good Extension (S1) 5 Normal Abduction 4+ Good+ Adduction 4 Good External Rotation 5 Normal Internal Rotation 5 Normal Knee Strength Knee Manual Muscle Testing Right Flexion (S2) 5 Normal Extension (L3) 5 Normal Left Flexion (S2) 5 Normal Extension (L3) 5 Normal PT-OP-Q Treatments Start: 11/02/23 17:40 Freq: Status: Active Protocol: Document 01/23/24 08:24 [facility] (Rec: 01/23/24 16:29 [facility] [id number]) Therapeutic Exercises Supine Exercises isometric Supine Exercise Name DKTC flex Side bilateral Reps/Minutes 10 sec review Comments good core LTR Supine Exercise Name leg crossed over (RLE crossed over L to bring knees R) Side bilateral Reps/Minutes 10 ea Comments cues core bridge Supine Exercise Name SL Side bilateral Reps/Minutes 10 Comments cues segmental Prone Exercises plank Prone Exercise Name forearm and knees Side bilateral Reps/Minutes 20 sec Comments inc time for set up Therapeutic Activity Therapeutic Activity posture Reps/Minutes 10 min Comments work on posture in sitting unsupported w/demo of different heights of chair. Edu and use of scrunched towel behind back Manual Therapy Treatment Soft Tissue Mobilization back Body Location B QL & ES & interspinalis Mobilization Type Sustained Pressure,Other Intensity/Depth Moderate Body Position SL Comments w/pelvic dep Neuro Re-Education Treatment Other Activities PNF Comments 1. ant elevation facilition R pelvis w/via traction thru LE progressed to prolonged hold progressed to COI w/ dissociation of LE from pelvis 3. post dep sustained hold pelvis progressed to w/LE pattern PT-OP-T Assessment and Plan Start: 11/02/23 17:40 Freq: Status: Active Protocol: Document 01/23/24 08:24 [facility] (Rec: 01/23/24 16:29 [facility] [id number]) Physical Therapy Assessment Goals balance Test Evaluator Goal (LTG) Pt will be able to do SLS B for 30 sec w/o hip drop or trunk rot 12/18-improved LTG Duration 02/21 activity Short Term Goal (STG) Pt will be able to drive 1 hour w/o significant pain in back and leg. 12/18-has not been driving d/t hand surgery 12/06; last time was still painful prior to that. 01/09/24: pain with bus ride to [facility] R>L leg. STG Duration 02/06 slow progression relief Retirement Goal (LTG) Pt will be able to hike hills and uneven terrain w/o inc pain in back, leg or knee. 12/18-feel hills in RLE more ( mostly buttocks) more, downhill and flat ok; knees feel stronger 01/09/24: MET GOAL: no pain walking, slight hills & gravel , no pian up and down. Hasn't tried uneven terrain. LTG Duration 01/15 MET GOAL strength Short Term Goal (STG) Pt will be indep w/HEP STG Duration achieved advancing as able Test Evaluator Goal (LTG) Pt will score at least 3/5 on LPM in all planes and at least 4+/5 on all BLE MMT to show improved strength to improve ease w/typical mobility. 12/18-improved 01/09/24: improved progressing 4 to 4+/5 over all LTG Duration 02/21 progressing 01/09/24 LEFS Impairment 40 Short Term Goal (STG) Pt will improve LEFS score to at least 50 to show improved functional ability. 12/18-01/09/24: GOAL MET: 57/80 STG Duration 12/09 GOAL MET Retirement Goal (LTG) Pt will improve LEFS score to at least 60 to show improved functional ability. 01/09/24:progress 57/80 LTG Duration 02/21 progressing 01/09/24 Assessment Summary Assessment Pt had improved tolerance to more difficult exercises today with cues. Improved core facilitation after PNF strategies. Physical Therapy Plan Frequency and Duration Frequency of Treatment 2x/Week Duration of treatment (weeks) 6 Plan of Care Start Date 01/09/24 Plan of Care End Date 02/22/24 Next Visit Focus/Plan Next Note Type Treatment Note Next Visit Plan PNF, STM to back, gentle innominate and lumbar mobility (osteoporosis), focus on core , check updated exercsies from this session
--- NOTE | 2024-01-26 09:50 | PT.OTN ---
Current Diagnoses Pain in unspecified hip (01/26/24) Pain in right knee (01/26/24) Low back pain, unspecified (01/26/24) Difficulty in walking, not elsewhere classified (01/26/24) Abnormal posture (01/26/24) Weakness (01/26/24) Physical Therapy Treatment Note PT-OP-A Visit Information Start: 11/02/23 17:40 Freq: Status: Active Protocol: Document 01/26/24 09:12 [facility] (Rec: 01/26/24 09:52 [facility] [id number]) Out-Patient Physical Therapy Visit Information Visit Information Visit Type Treatment Note Visit Start Time 09:12 Visit Stop Time 09:50 Visit Number 13/60 (4/10 PN) Number of TECHNICAL ASSISTANCE CONSULTANT Visits 1 Precautions Precautions hx of sacral ala fx earlier this year PT-OP-B Current Condition Start: 11/02/23 17:40 Freq: Status: Active Protocol: Document 11/07/23 09:06 [facility] (Rec: 11/07/23 09:50 [facility] [id number]) Current Condition History of Current Condition Onset Date spring, about 1 year ago, late summer Current Complaints back pain, L foot numbness, R buttocks to HS History of Current Condition Pt reports they found an insufficency fx found in the Spring but does not note any incident that caused it. When she is leaning at the sink, she gets a tiny sharp pain in R buttocks. L foot MT pad is numb and toes can become numb feeling when walking. hx of R ankle sx year ago arthorscopic to clean up jt after childhood injury. Pt reports pain down leg. Does okay if walking flat, or slight incline, but if have to go up steep hill and feels like R glute grabs and goes down to HS. She has dx of osteoporosis . Started [employer] program (gets 4 exercises a week). She is on week 5. Driving is painful for LB and R leg. Has had 2 falls this year, slipping and falling in back yard but didn't notice any pain associated with it. this was after she already had dx. Does see doctor tomorrow. Pt reports R ant knee pain with up/down stairs and hills. This has been for years. Did have feet looked at and got special sneakers and MT pad. R hip is waking her up at 3 am in the AM. Pt reports does have a fatty liver (just barely) Prior Treatments and Tests CT: IMPRESSION: No nephrolithiasis or filling defects within the opacified renal collecting system or ureters. Right sacral ala insufficiency fracture. A few pulmonary micro nodules in the lung bases. Consider 12 month follow-up if at high risk for developing lung cancer, per Fleischner Society guidelines. Treatment Goals Patient/Caregiver Goals be able to hike/do uneven terrain, what exercises safety frias to stay away from vs do, Be able to drive and feel comfortable (cannot drive greater than 30 min w/o significant pain), be able to kayak PT-OP-C Subjective Start: 11/02/23 17:40 Freq: Status: Active Protocol: Document 01/26/24 09:12 [facility] (Rec: 01/26/24 09:52 [id number]) OP-PT Subjective Patient Comments Patient Comments Pt reports the scrunched towel behind her back didn't support as good as hoped, does have good vehicle lunbar support and able angle seat surface for femur angling comfort. She drove to [place] and only had some tension in R HS and yesterday [place] low back and sit bones not as bad. She went to both [employer]/ pool check out availablity that will fit her best. Decided pool/ fitness will be more beneficial and more opportunities. Will do pool deep end pool class and flow yoga 2 days week for fitness. PT-OP-D Balance Start: 11/02/23 17:40 Freq: Status: Active Protocol: Document 12/19/23 07:32 [facility] (Rec: 12/19/23 08:20 [facility] [id number]) Balance Tests Single Limb Standing Single Limb- Right minor hip drop 27 sec Single Limb- Left >30 sec R trunk rot PT-OP-G Mobility & Gait Start: 11/02/23 17:40 Freq: Status: Active Protocol: Document 11/07/23 09:06 [facility] (Rec: 11/07/23 09:50 [facility] [id number]) OP Gait Assessment Comments Gait Comments dec trunk motion, dec UE swing , harder landing on RLE PT-OP-J Posture/Palpation/Skin Start: 11/02/23 17:40 Freq: Status: Active Protocol: Document 01/09/24 13:22 [facility] (Rec: 01/09/24 09:23 [facility] [id number]) Posture Evaluation [facility] Postural Classification System Lumbar Protective Mechanism Left AP 1 Lumbar Protective Mechanism Right AP 2 Lumbar Protective Mechanism Left PA 4 Lumbar Protective Mechanism Right PA 2 PT-OP-K Range of Motion Start: 11/02/23 17:40 Freq: Status: Active Protocol: Document 11/07/23 09:06 [facility] (Rec: 11/07/23 09:50 [facility] [id number]) Ankle and Foot Goniometric Range of Motion Ankle and Foot ROM Limitations Comments 4 in to wall but knee goes more med on R PT-OP-L Special Tests Start: 11/02/23 17:40 Freq: Status: Active Protocol: Document 11/07/23 09:06 [facility] (Rec: 11/07/23 09:50 [facility] [id number]) Special Tests Lumbar Spine Special Tests Straight Leg Raise Test Results positive B Slump Test Results positive B PT-OP-M Strength Start: 11/02/23 17:40 Freq: Status: Active Protocol: Document 01/09/24 13:22 [facility] (Rec: 01/09/24 09:23 [facility] [id number]) Hip Strength Hip Manual Muscle Testing Right Flexion (L2) 4 Good Extension (S1) 4 Good Abduction 4+ Good+ Adduction 4 Good External Rotation 5 Normal Internal Rotation 5 Normal Left Flexion (L2) 4 Good Extension (S1) 5 Normal Abduction 4+ Good+ Adduction 4 Good External Rotation 5 Normal Internal Rotation 5 Normal Knee Strength Knee Manual Muscle Testing Right Flexion (S2) 5 Normal Extension (L3) 5 Normal Left Flexion (S2) 5 Normal Extension (L3) 5 Normal PT-OP-Q Treatments Start: 11/02/23 17:40 Freq: Status: Active Protocol: Document 01/26/24 09:12 [facility] (Rec: 01/26/24 09:52 [facility] [id number]) Gym Equipment Therapeutic Ball core Exercise Details april, Ball Size/Color 65cm Body Position seated Reps/Duration 10 reps each Therapeutic Exercises Sidelying Exercises clamshell Sidelying Exercise Name added to HEP declined hO Side bilateral Resistance TB #1 at thighs Reps/Minutes x10 Comments cued postural alignment, control return Standing Exercises TA april Standing Exercise Name added to HEP declined hO Side bilateral Resistance Tb #1 at feet Reps/Minutes 20 reps alternating Comments cued feet/knees apart, level pelvis, eccentric control Other Exercises self STMs Other Exercise Name ball wall rolling vs hooklying Clamshell: glut/ hip ERs Reps/Minutes 2 min good response Comments tension reduction similar to manual Manual Therapy Treatment Consent Patient gave verbal consent for manual Yes treatment Soft Tissue Mobilization back Body Location R QL & ES & interspinalis Mobilization Type Sustained Pressure,Other Intensity/Depth Moderate Body Position lSL Comments manual STMs glute Body Location R glute and piriformis Mobilization Type Rolling,Sustained Pressure Intensity/Depth Moderate Body Position prone over pillows Comments L SL: R MWM hip ER/IR /c glut med & pirif Other Other Manual Treatments l>R sl: improved TA and RAROM on R anterior elevation/ posterior depression. PT-OP-T Assessment and Plan Start: 11/02/23 17:40 Freq: Status: Active Protocol: Document 01/26/24 09:12 [facility] (Rec: 01/26/24 09:52 [facility] [id number]) Physical Therapy Assessment Goals balance Long-Term Goal (LTG) Pt will be able to do SLS B for 30 sec w/o hip drop or trunk rot 12/18-improved LTG Duration 02/21 activity Short Term Goal (STG) Pt will be able to drive 1 hour w/o significant pain in back and leg. 12/18-has not been driving d/t hand surgery 12/06; last time was still painful prior to that. 01/09/24: pain with bus ride to [facility] R>L leg. STG Duration 02/06 slow progression relief Home Office Representative Goal (LTG) Pt will be able to hike hills and uneven terrain w/o inc pain in back, leg or knee. 12/18-feel hills in RLE more ( mostly buttocks) more, downhill and flat ok; knees feel stronger 01/09/24: MET GOAL: no pain walking, slight hills & gravel , no pian up and down. Hasn't tried uneven terrain. LTG Duration 01/15 MET GOAL strength Short Term Goal (STG) Pt will be indep w/HEP STG Duration achieved advancing as able Long-Term Goal (LTG) Pt will score at least 3/5 on LPM in all planes and at least 4+/5 on all BLE MMT to show improved strength to improve ease w/typical mobility. 12/18-improved 01/09/24: improved progressing 4 to 4+/5 over all LTG Duration 02/21 progressing 01/09/24 LEFS Impairment 40 Short Term Goal (STG) Pt will improve LEFS score to at least 50 to show improved functional ability. 12/18-45/80 01/09/24: GOAL MET: 57/80 STG Duration 12/09 GOAL MET Long-Term Goal (LTG) Pt will improve LEFS score to at least 60 to show improved functional ability. 01/09/24:progress 57/80 LTG Duration 02/21 progressing 01/09/24 Assessment Summary Assessment Pt reported improved less R posterior hip tightness post manual and therex. Pt required cues and instruction on self application carryover use tennis/racquetball with good response set up and trial. Pt tolerated emphasis on core and hip strengthening today with added theraband to SL clamshell and standing march balance component today, declined HOs. Physical Therapy Plan Frequency and Duration Frequency of Treatment 2x/Week Duration of treatment (weeks) 6 Plan of Care Start Date 01/09/24 Plan of Care End Date 02/22/24 Therapeutic Interventions Therapeutic Interventions Balance Training,Home Exercise Program,Joint Mobilizations, Manual Therapy,Neuromuscular Re-education,Patient/Caregiver Education,Self-Care/Home Management,Soft Tissue Mobilization,Taping, Therapeutic Activities, Therapeutic Exercises Modalities Cold Pack/Ice Massage,Electric Stimulation,Hot Packs, Infrared Therapy,Ultrasound Next Visit Focus/Plan Next Note Type Treatment Note Next Visit Plan Recheck HEPs and seated alignment for car rides. PNF, STM to back, gentle innominate and lumbar mobility ( osteoporosis), focus on core.
--- NOTE | 2024-01-29 12:41 | PT.OTN ---
Current Diagnoses Pain in unspecified hip (01/29/24) Pain in right knee (01/29/24) Low back pain, unspecified (01/29/24) Difficulty in walking, not elsewhere classified (01/29/24) Abnormal posture (01/29/24) Weakness (01/29/24) Physical Therapy Treatment Note PT-OP-A Visit Information Start: 11/02/23 17:40 Freq: Status: Active Protocol: Document 01/29/24 10:44 AB (Rec: 01/29/24 12:40 AB [id number]) Out-Patient Physical Therapy Visit Information Visit Information Visit Type Treatment Note Visit Note Visit [email or web address] Access Code: [email or web address] Visit Start Time 10:48 Visit Stop Time 11:32 Visit Number 14 (06/15 PN) Number of [employer] Visits 2 Precautions Precautions hx of sacral ala fx earlier this year PT-OP-B Current Condition Start: 11/02/23 17:40 Freq: Status: Active Protocol: Document 11/07/23 09:06 [facility] (Rec: 11/07/23 09:50 [facility] [id number]) Current Condition History of Current Condition Onset Date spring, about 1 year ago, late summer Current Complaints back pain, L foot numbness, R buttocks to HS History of Current Condition Pt reports they found an insufficency fx found in the Spring but does not note any incident that caused it. When she is leaning at the sink, she gets a tiny sharp pain in R buttocks. L foot MT pad is numb and toes can become numb feeling when walking. hx of R ankle sx year ago arthorscopic to clean up jt after childhood injury. Pt reports pain down leg. Does okay if walking flat, or slight incline, but if have to go up steep hill and feels like R glute grabs and goes down to HS. She has dx of osteoporosis . Started [employer] program (gets 4 exercises a week). She is on week 5. Driving is painful for LB and R leg. Has had 2 falls this year, slipping and falling in back yard but didn't notice any pain associated with it. this was after she already had dx. Does see doctor tomorrow. Pt reports R ant knee pain with up/down stairs and hills. This has been for years. Did have feet looked at and got special sneakers and MT pad. R hip is waking her up at 3 am in the AM. Pt reports does have a fatty liver (just barely) Prior Treatments and Tests CT: IMPRESSION: No nephrolithiasis or filling defects within the opacified renal collecting system or ureters. Right sacral ala insufficiency fracture. A few pulmonary micro nodules in the lung bases. Consider 12 month follow-up if at high risk for developing lung cancer, per Fleischner Society guidelines. Treatment Goals Patient/Caregiver Goals be able to hike/do uneven terrain, what exercises safety frias to stay away from vs do, Be able to drive and feel comfortable (cannot drive greater than 30 min w/o significant pain), be able to kayak PT-OP-C Subjective Start: 11/02/23 17:40 Freq: Status: Active Protocol: Document 01/29/24 10:44 AB (Rec: 01/29/24 12:40 AB [id number]) OP-PT Subjective Patient Comments Patient Comments Patient reports she is still the same, sitting continues to increases pain, and when lying on right. Patient also comments she stood for a long time yesterday, which may be why she is sore today. PT-OP-D Balance Start: 11/02/23 17:40 Freq: Status: Active Protocol: Document 12/19/23 07:32 [facility] (Rec: 12/19/23 08:20 [facility] [id number]) Balance Tests Single Limb Standing Single Limb- Right minor hip drop 27 sec Single Limb- Left >30 sec R trunk rot PT-OP-G Mobility & Gait Start: 11/02/23 17:40 Freq: Status: Active Protocol: Document 11/07/23 09:06 [facility] (Rec: 11/07/23 09:50 [facility] [id number]) OP Gait Assessment Comments Gait Comments dec trunk motion, dec UE swing , harder landing on RLE PT-OP-J Posture/Palpation/Skin Start: 11/02/23 17:40 Freq: Status: Active Protocol: Document 01/09/24 13:22 [facility] (Rec: 01/09/24 09:23 [facility] [id number]) Posture Evaluation [facility] Postural Classification System Lumbar Protective Mechanism Left AP 1 Lumbar Protective Mechanism Right AP 2 Lumbar Protective Mechanism Left PA 4 Lumbar Protective Mechanism Right PA 2 PT-OP-K Range of Motion Start: 11/02/23 17:40 Freq: Status: Active Protocol: Document 11/07/23 09:06 [facility] (Rec: 11/07/23 09:50 [facility] [id number]) Ankle and Foot Goniometric Range of Motion Ankle and Foot ROM Limitations Comments 4 in to wall but knee goes more med on R PT-OP-L Special Tests Start: 11/02/23 17:40 Freq: Status: Active Protocol: Document 11/07/23 09:06 [facility] (Rec: 11/07/23 09:50 [facility] [id number]) Special Tests Lumbar Spine Special Tests Straight Leg Raise Test Results positive B Slump Test Results positive B PT-OP-M Strength Start: 11/02/23 17:40 Freq: Status: Active Protocol: Document 01/09/24 13:22 [facility] (Rec: 01/09/24 09:23 [facility] [id number]) Hip Strength Hip Manual Muscle Testing Right Flexion (L2) 4 Good Extension (S1) 4 Good Abduction 4+ Good+ Adduction 4 Good External Rotation 5 Normal Internal Rotation 5 Normal Left Flexion (L2) 4 Good Extension (S1) 5 Normal Abduction 4+ Good+ Adduction 4 Good External Rotation 5 Normal Internal Rotation 5 Normal Knee Strength Knee Manual Muscle Testing Right Flexion (S2) 5 Normal Extension (L3) 5 Normal Left Flexion (S2) 5 Normal Extension (L3) 5 Normal PT-OP-Q Treatments Start: 11/02/23 17:40 Freq: Status: Active Protocol: Document 01/29/24 10:44 AB (Rec: 01/29/24 12:40 AB [id number]) Therapeutic Exercises Supine Exercises modified Roldan stretch Side bilateral Reps/Minutes one minute each LE( with AROM knee flex X 10 Comments Verbal cues, resisted clamshell Supine Exercise Name added to HEP /c HO Side bilateral Resistance Tb #2 teal Reps/Minutes x10 Comments arms side self check level pelvis, slow pacing hip ER/ ecc IR return bridge Supine Exercise Name 1. Bilateral 2. SL Reps/Minutes 1. X 10 2. X 5 each LE Comments verbal cues to perform slowly and segmentally stretch Supine Exercise Name piriformis and figure 4 Side bilateral Reps/Minutes 60 sec each LE Sitting Exercises seated hip abd with band Side bilateral Resistance washoe green band Reps/Minutes one min X 1 Standing Exercises squat with band Resistance washoe green band Reps/Minutes X10 Comments Verbal cues to squat to a depth that does not increase pain Therapeutic Activity Therapeutic Activity seated positioning Name towel roll under ischial tuberosities Comments training with 1/2 foam roller Manual Therapy Treatment Soft Tissue Mobilization hip flexor at groin Body Location bilateral hips Mobilization Type Cross-Friction,Rolling Intensity/Depth Moderate Body Position Hooklying back Body Location R paraspinals, SI Mobilization Type Cross-Friction,Manual Lymphatic Drainage,Rolling, Sustained Pressure glute Body Location R glute and piriformis Mobilization Type Cross-Friction,Rolling Intensity/Depth Moderate Body Position prone over pillows Manual Techniques MET for Right AI left PI Type 6 sec X 6 for pubic shotgun and AI PI PT-OP-T Assessment and Plan Start: 11/02/23 17:40 Freq: Status: Active Protocol: Document 01/29/24 10:44 AB (Rec: 01/29/24 12:40 AB [id number]) Physical Therapy Assessment Goals balance Auto [employer] Manager Goal (LTG) Pt will be able to do SLS B for 30 sec w/o hip drop or trunk rot 12/18-improved LTG Duration 02/21 activity Short Term Goal (STG) Pt will be able to drive 1 hour w/o significant pain in back and leg. 12/18-has not been driving d/t hand surgery 12/06; last time was still painful prior to that. 01/09/24: pain with bus ride to [facility] R>L leg. STG Duration 02/06 slow progression relief Skilled Nursing Goal (LTG) Pt will be able to hike hills and uneven terrain w/o inc pain in back, leg or knee. 12/18-feel hills in RLE more ( mostly buttocks) more, downhill and flat ok; knees feel stronger 01/09/24: MET GOAL: no pain walking, slight hills & gravel , no pian up and down. Hasn't tried uneven terrain. LTG Duration 01/15 MET GOAL strength Short Term Goal (STG) Pt will be indep w/HEP STG Duration achieved advancing as able Skilled Nursing Goal (LTG) Pt will score at least 3/5 on LPM in all planes and at least 4+/5 on all BLE MMT to show improved strength to improve ease w/typical mobility. 12/18-improved 01/09/24: improved progressing 4 to 4+/5 over all LTG Duration 02/21 progressing 01/09/24 LEFS Impairment 40 Short Term Goal (STG) Pt will improve LEFS score to at least 50 to show improved functional ability. 12/18-45/80 01/09/24: GOAL MET: 57/80 STG Duration 12/09 GOAL MET Skilled Nursing Goal (LTG) Pt will improve LEFS score to at least 60 to show improved functional ability. 01/09/24:progress 57/80 LTG Duration 02/21 progressing 01/09/24 Assessment Summary Assessment Patient reports feeling OK end of session. Squat depth limited by pain. Physical Therapy Plan Frequency and Duration Frequency of Treatment 2x/Week Duration of treatment (weeks) 6 Plan of Care Start Date 01/09/24 Plan of Care End Date 02/22/24 Next Visit Focus/Plan Next Note Type Treatment Note Next Visit Plan Recheck HEPs and seated alignment for car rides. PNF, STM to back, gentle innominate and lumbar mobility ( osteoporosis), focus on core. Revisit squat with band, limit depth.
--- NOTE | 2024-02-01 12:21 | PT.OTN ---
Current Diagnoses Pain in unspecified hip (02/01/24) Pain in right knee (02/01/24) Low back pain, unspecified (02/01/24) Difficulty in walking, not elsewhere classified (02/01/24) Abnormal posture (02/01/24) Weakness (02/01/24) Physical Therapy Treatment Note PT-OP-A Visit Information Start: 11/02/23 17:40 Freq: Status: Active Protocol: Document 02/01/24 08:45 AB (Rec: 02/01/24 12:19 AB [id number]) Out-Patient Physical Therapy Visit Information Visit Information Visit Type Treatment Note Visit Note Visit [email or web address]: [email or web address] Visit Start Time 11:25 Visit Stop Time 12:20 Visit Number 1560 (07/16 PN) Number of [employer] Visits 3 Precautions Precautions hx of sacral ala fx earlier this year PT-OP-B Current Condition Start: 11/02/23 17:40 Freq: Status: Active Protocol: Document 11/07/23 09:06 [facility] (Rec: 11/07/23 09:50 [facility] [id number]) Current Condition History of Current Condition Onset Date spring, about 1 year ago, late summer Current Complaints back pain, L foot numbness, R buttocks to HS History of Current Condition Pt reports they found an insufficency fx found in the Spring but does not note any incident that caused it. When she is leaning at the sink, she gets a tiny sharp pain in R buttocks. L foot MT pad is numb and toes can become numb feeling when walking. hx of R ankle sx year ago arthorscopic to clean up jt after childhood injury. Pt reports pain down leg. Does okay if walking flat, or slight incline, but if have to go up steep hill and feels like R glute grabs and goes down to HS. She has dx of osteoporosis . Started [employer] program (gets 4 exercises a week). She is on week 5. Driving is painful for LB and R leg. Has had 2 falls this year, slipping and falling in back yard but didn't notice any pain associated with it. this was after she already had dx. Does see doctor tomorrow. Pt reports R ant knee pain with up/down stairs and hills. This has been for years. Did have feet looked at and got special sneakers and MT pad. R hip is waking her up at 3 am in the AM. Pt reports does have a fatty liver (just barely) Prior Treatments and Tests CT: IMPRESSION: No nephrolithiasis or filling defects within the opacified renal collecting system or ureters. Right sacral ala insufficiency fracture. A few pulmonary micro nodules in the lung bases. Consider 12 month follow-up if at high risk for developing lung cancer, per Fleischner Society guidelines. Treatment Goals Patient/Caregiver Goals be able to hike/do uneven terrain, what exercises safety frias to stay away from vs do, Be able to drive and feel comfortable (cannot drive greater than 30 min w/o significant pain), be able to kayak PT-OP-C Subjective Start: 11/02/23 17:40 Freq: Status: Active Protocol: Document 02/01/24 08:45 AB (Rec: 02/01/24 12:19 AB [id number]) OP-PT Subjective Patient Comments Patient Comments Patient reports she is the same, hasn't driven anywhere since previous session. Patient reports less pain with driving a week ago Monday. PT-OP-D Balance Start: 11/02/23 17:40 Freq: Status: Active Protocol: Document 12/19/23 07:32 [facility] (Rec: 12/19/23 08:20 [facility] [id number]) Balance Tests Single Limb Standing Single Limb- Right minor hip drop 27 sec Single Limb- Left >30 sec R trunk rot PT-OP-G Mobility & Gait Start: 11/02/23 17:40 Freq: Status: Active Protocol: Document 11/07/23 09:06 [facility] (Rec: 11/07/23 09:50 [facility] [id number]) OP Gait Assessment Comments Gait Comments dec trunk motion, dec UE swing , harder landing on RLE PT-OP-J Posture/Palpation/Skin Start: 11/02/23 17:40 Freq: Status: Active Protocol: Document 01/09/24 13:22 [facility] (Rec: 01/09/24 09:23 [facility] [id number]) Posture Evaluation [facility] Postural Classification System Lumbar Protective Mechanism Left AP 1 Lumbar Protective Mechanism Right AP 2 Lumbar Protective Mechanism Left PA 4 Lumbar Protective Mechanism Right PA 2 PT-OP-K Range of Motion Start: 11/02/23 17:40 Freq: Status: Active Protocol: Document 11/07/23 09:06 [facility] (Rec: 11/07/23 09:50 [facility] [id number]) Ankle and Foot Goniometric Range of Motion Ankle and Foot ROM Limitations Comments 4 in to wall but knee goes more med on R PT-OP-L Special Tests Start: 11/02/23 17:40 Freq: Status: Active Protocol: Document 11/07/23 09:06 [facility] (Rec: 11/07/23 09:50 [facility] [id number]) Special Tests Lumbar Spine Special Tests Straight Leg Raise Test Results positive B Slump Test Results positive B PT-OP-M Strength Start: 11/02/23 17:40 Freq: Status: Active Protocol: Document 01/09/24 13:22 [facility] (Rec: 01/09/24 09:23 [facility] [id number]) Hip Strength Hip Manual Muscle Testing Right Flexion (L2) 4 Good Extension (S1) 4 Good Abduction 4+ Good+ Adduction 4 Good External Rotation 5 Normal Internal Rotation 5 Normal Left Flexion (L2) 4 Good Extension (S1) 5 Normal Abduction 4+ Good+ Adduction 4 Good External Rotation 5 Normal Internal Rotation 5 Normal Knee Strength Knee Manual Muscle Testing Right Flexion (S2) 5 Normal Extension (L3) 5 Normal Left Flexion (S2) 5 Normal Extension (L3) 5 Normal PT-OP-Q Treatments Start: 11/02/23 17:40 Freq: Status: Active Protocol: Document 02/01/24 08:45 AB (Rec: 02/01/24 12:19 AB [id number]) Therapeutic Exercises Supine Exercises modified Roldan stretch Side bilateral Reps/Minutes one minute each LE( with AROM knee flex X 10 Comments post manual, except MET/MET post isometric Supine Exercise Name DKTC flex Side bilateral Reps/Minutes 15 sec 13 sec 10 sec Comments good core bridge Supine Exercise Name 1. Bilateral 2. SL Reps/Minutes 1. X 8 2. X 5 each LE Comments verbal cues to perform slowly and segmentally stretch Supine Exercise Name piriformis and figure 4 Side bilateral Reps/Minutes 60 sec each LE Sitting Exercises seated hip abd with band Side bilateral Resistance rampart green band Reps/Minutes one min X 1 Standing Exercises squat with band Resistance rampart green band Reps/Minutes X10 Comments Verbal cues to squat to a depth that does not increase pain Manual Therapy Treatment Soft Tissue Mobilization hip flexor at groin Body Location bilateral hips Mobilization Type Cross-Friction,Rolling Intensity/Depth Moderate Body Position Hooklying back Body Location R paraspinals, SI Mobilization Type Cross-Friction,Rolling, Sustained Pressure adductor Body Location R Mobilization Type Rolling Intensity/Depth Moderate Comments distal glute Body Location R glute and piriformis Mobilization Type Cross-Friction,Rolling Intensity/Depth Moderate Body Position prone over pillows Joint Mobilizations hip Joint R inf glide Grade II Reps/Duration X10 X2 Manual Techniques MET for Right AI left PI Type 6 sec X 6 for pubic shotgun and AI PI Neuro Re-Education Treatment Other Activities PNF Details initiated, but unable to perform due to therapists hands sliding on jeans. PT-OP-R Modalities Start: 11/02/23 17:40 Freq: Status: Active Protocol: Document 02/01/24 08:45 AB (Rec: 02/01/24 12:19 AB [id number]) Hot Pack/Cold Pack Treatment ice pack Location right knee Patient Position Hooklying Comments 10 min PT-OP-T Assessment and Plan Start: 11/02/23 17:40 Freq: Status: Active Protocol: Document 02/01/24 08:45 AB (Rec: 02/01/24 12:19 AB [id number]) Physical Therapy Assessment Goals balance Residential Goal (LTG) Pt will be able to do SLS B for 30 sec w/o hip drop or trunk rot 12/18-improved LTG Duration 02/21 activity Short Term Goal (STG) Pt will be able to drive 1 hour w/o significant pain in back and leg. 12/18-has not been driving d/t hand surgery 12/06; last time was still painful prior to that. 01/09/24: pain with bus ride to [facility] R>L leg. STG Duration 02/06 slow progression relief Residential Goal (LTG) Pt will be able to hike hills and uneven terrain w/o inc pain in back, leg or knee. 12/18-feel hills in RLE more ( mostly buttocks) more, downhill and flat ok; knees feel stronger 01/09/24: MET GOAL: no pain walking, slight hills & gravel , no pian up and down. Hasn't tried uneven terrain. LTG Duration 01/15 MET GOAL strength Short Term Goal (STG) Pt will be indep w/HEP STG Duration achieved advancing as able Residential Goal (LTG) Pt will score at least 3/5 on LPM in all planes and at least 4+/5 on all BLE MMT to show improved strength to improve ease w/typical mobility. 12/18-improved 01/09/24: improved progressing 4 to 4+/5 over all LTG Duration 02/21 progressing 01/09/24 LEFS Impairment 40 Short Term Goal (STG) Pt will improve LEFS score to at least 50 to show improved functional ability. 12/18-01/09/24: GOAL MET: 57/80 STG Duration 12/09 GOAL MET Residential Goal (LTG) Pt will improve LEFS score to at least 60 to show improved functional ability. 01/09/24:progress 57/80 LTG Duration 02/21 progressing 01/09/24 Assessment Summary Assessment Patient able to squat to a depth that does not increase pain, pain noted at 65 deg flexion. Nancy reports having no pain end of session. Physical Therapy Plan Frequency and Duration Frequency of Treatment 2x/Week Duration of treatment (weeks) 6 Plan of Care Start Date 01/09/24 Plan of Care End Date 02/22/24 Next Visit Focus/Plan Next Note Type Treatment Note Next Visit Plan Recheck HEPs and seated alignment for car rides. PNF, STM to back, gentle innominate and lumbar mobility ( osteoporosis), focus on core.
--- NOTE | 2024-02-12 15:05 | PT.OTN ---
Current Diagnoses Pain in unspecified hip (02/12/24) Pain in right knee (02/12/24) Low back pain, unspecified (02/12/24) Difficulty in walking, not elsewhere classified (02/12/24) Abnormal posture (02/12/24) Weakness (02/12/24) Physical Therapy Treatment Note PT-OP-A Visit Information Start: 11/02/23 17:40 Freq: Status: Active Protocol: Document 02/12/24 11:38 [facility] (Rec: 02/12/24 15:03 [facility] [id number]) Out-Patient Physical Therapy Visit Information Visit Information Visit Type Progress Note Number of [place] Visits 0 PT-OP-B Current Condition Start: 11/02/23 17:40 Freq: Status: Active Protocol: Document 11/07/23 09:06 [facility] (Rec: 11/07/23 09:50 [facility] [id number]) Current Condition History of Current Condition Onset Date spring, about 1 year ago, late summer Current Complaints back pain, L foot numbness, R buttocks to HS History of Current Condition Pt reports they found an insufficency fx found in the Spring but does not note any incident that caused it. When she is leaning at the sink, she gets a tiny sharp pain in R buttocks. L foot MT pad is numb and toes can become numb feeling when walking. hx of R ankle sx year ago arthorscopic to clean up jt after childhood injury. Pt reports pain down leg. Does okay if walking flat, or slight incline, but if have to go up steep hill and feels like R glute grabs and goes down to HS. She has dx of osteoporosis . Started [employer] bones program (gets 4 exercises a week). She is on week 5. Driving is painful for LB and R leg. Has had 2 falls this year, slipping and falling in back yard but didn't notice any pain associated with it. this was after she already had dx. Does see doctor tomorrow. Pt reports R ant knee pain with up/down stairs and hills. This has been for years. Did have feet looked at and got special sneakers and MT pad. R hip is waking her up at 3 am in the AM. Pt reports does have a fatty liver (just barely) Prior Treatments and Tests CT: IMPRESSION: No nephrolithiasis or filling defects within the opacified renal collecting system or ureters. Right sacral ala insufficiency fracture. A few pulmonary micro nodules in the lung bases. Consider 12 month follow-up if at high risk for developing lung cancer, per Fleischner Society guidelines. Treatment Goals Patient/Caregiver Goals be able to hike/do uneven terrain, what exercises safety frias to stay away from vs do, Be able to drive and feel comfortable (cannot drive greater than 30 min w/o significant pain), be able to kayak PT-OP-C Subjective Start: 11/02/23 17:40 Freq: Status: Active Protocol: Document 02/12/24 11:38 [facility] (Rec: 02/12/24 15:04 [facility] [id number]) OP-PT Subjective Patient Comments Patient Comments Pt did drive to [facility] and did okay. Mostly B hip pain/ back pain but not down legs recently and it is only sometimes and to a lesser degree Patient Reported Progress Improving PT-OP-D Balance Start: 11/02/23 17:40 Freq: Status: Active Protocol: Document 12/19/23 07:32 [facility] (Rec: 12/19/23 08:20 [facility] [id number]) Balance Tests Single Limb Standing Single Limb- Right minor hip drop 27 sec Single Limb- Left >30 sec R trunk rot PT-OP-G Mobility & Gait Start: 11/02/23 17:40 Freq: Status: Active Protocol: Document 11/07/23 09:06 [facility] (Rec: 11/07/23 09:50 [facility] [id number]) OP Gait Assessment Comments Gait Comments dec trunk motion, dec UE swing , harder landing on RLE PT-OP-J Posture/Palpation/Skin Start: 11/02/23 17:40 Freq: Status: Active Protocol: Document 02/12/24 11:38 [facility] (Rec: 02/12/24 15:03 [facility] [id number]) Posture Evaluation Melinda Postural Classification System Lumbar Protective Mechanism Left AP 1 Lumbar Protective Mechanism Right AP 2 Lumbar Protective Mechanism Left PA 5 Lumbar Protective Mechanism Right PA 2 PT-OP-K Range of Motion Start: 11/02/23 17:40 Freq: Status: Active Protocol: Document 11/07/23 09:06 [facility] (Rec: 11/07/23 09:50 [facility] [id number]) Ankle and Foot Goniometric Range of Motion Ankle and Foot ROM Limitations Comments 4 in to wall but knee goes more med on R PT-OP-L Special Tests Start: 11/02/23 17:40 Freq: Status: Active Protocol: Document 11/07/23 09:06 [facility] (Rec: 11/07/23 09:50 [facility] [id number]) Special Tests Lumbar Spine Special Tests Straight Leg Raise Test Results positive B Slump Test Results positive B PT-OP-M Strength Start: 11/02/23 17:40 Freq: Status: Active Protocol: Document 02/12/24 11:38 [facility] (Rec: 02/12/24 15:03 [facility] [id number]) Hip Strength Hip Manual Muscle Testing Right Flexion (L2) 4 Good Extension (S1) 5 Normal Abduction 4+ Good+ Adduction 5 Normal External Rotation 5 Normal Internal Rotation 5 Normal Left Flexion (L2) 4+ Good+ Extension (S1) 5 Normal Abduction 4+ Good+ Adduction 4+ Good+ External Rotation 5 Normal Internal Rotation 5 Normal Knee Strength Knee Manual Muscle Testing Right Flexion (S2) 5 Normal Extension (L3) 5 Normal Left Flexion (S2) 5 Normal Extension (L3) 5 Normal PT-OP-Q Treatments Start: 11/02/23 17:40 Freq: Status: Active Protocol: Document 02/12/24 11:38 [facility] (Rec: 02/12/24 15:03 [facility] [id number]) Therapeutic Exercises Standing Exercises paloff press Side bilateral Equipment Used 2 orange bands Reps/Minutes 15 Comments cues posture and not rot of spine Other Exercises cat/cow Other Exercise Name forearms and knees Side bilateral Reps/Minutes 10 Comments w/slight rock back in angry cat isometric Other Exercise Name B MMT and LPM Manual Therapy Treatment Consent Patient gave verbal consent for manual Yes treatment Soft Tissue Mobilization hip flexor at groin Body Location L>R proximal psoas Mobilization Type Sustained Pressure Comments w/B hip flex PROM back Body Location B paraspinals to SI w/angry cat Self-Care/Home Management Treatment Education Other Education 8 min: edu on how to do stretches (glute and HS) during walks or as car passenger and encouraged frequent spine movement when sitting or standing long periods for lubrication to joints or even short breaks of sittign when in kitchen for long time. PT-OP-R Modalities Start: 11/02/23 17:40 Freq: Status: Active Protocol: Document 02/01/24 08:45 [facility] (Rec: 02/01/24 12:19 [facility] [id number]) Hot Pack/Cold Pack Treatment ice pack Location right knee Patient Position Hooklying Comments 10 min PT-OP-T Assessment and Plan Start: 11/02/23 17:40 Freq: Status: Active Protocol: Document 02/12/24 11:38 [facility] (Rec: 02/12/24 15:03 [facility] [id number]) Physical Therapy Assessment Goals balance Turnstile Attendant Goal (LTG) Pt will be able to do SLS B for 30 sec w/o hip drop or trunk rot 12/18-improved 02/11-slight hip drop when on RLE >30 sec B LTG Duration 03/09 activity Short Term Goal (STG) Pt will be able to drive 1 hour w/o significant pain in back and leg. 12/18-has not been driving d/t hand surgery 12/06; last time was still painful prior to that. 01/09/24: pain with bus ride to [facility] R>L leg. 02/11-min pain w/1 hour w/only back pain, no leg pain STG Duration 02/06 slow progression relief Skilled Nursing Goal (LTG) Pt will be able to hike hills and uneven terrain w/o inc pain in back, leg or knee. 12/18-feel hills in RLE more ( mostly buttocks) more, downhill and flat ok; knees feel stronger 01/09/24: MET GOAL: no pain walking, slight hills & gravel , no pian up and down. Hasn't tried uneven terrain. LTG Duration achieved strength Short Term Goal (STG) Pt will be indep w/HEP STG Duration achieved advancing as able Skilled Nursing Goal (LTG) Pt will score at least 3/5 on LPM in all planes and at least 4+/5 on all BLE MMT to show improved strength to improve ease w/typical mobility. 12/18-improved 01/09/24: improved progressing 4 to 4+/5 over all 02/11-mostly achieved-core weakness LTG Duration 210 LEFS Impairment 40 Short Term Goal (STG) Pt will improve LEFS score to at least 50 to show improved functional ability. 12/18-45/80 01/09/24: GOAL MET: 57/80 STG Duration 12/09 GOAL MET Skilled Nursing Goal (LTG) Pt will improve LEFS score to at least 60 to show improved functional ability. 01/09/24:progress 57/80 LTG Duration achieved 62/80 02/11 Assessment Summary Assessment Pt had improved spinal flexion after manual today. She cont to improve in LE strenght but is still weak w/core and would bneefit from further core stability training. Cont PT to improve movement mechanics and core stabiltiy to dec back and leg pain. Physical Therapy Plan Frequency and Duration Frequency of Treatment 2x/Week Duration of treatment (weeks) 6 Plan of Care Start Date 02/12/24 Plan of Care End Date 03/25/24 Therapeutic Interventions Therapeutic Interventions Balance Training,Home Exercise Program,Joint Mobilizations, Manual Therapy,Neuromuscular Re-education,Patient/Caregiver Education,Self-Care/Home Management,Soft Tissue Mobilization,Taping, Therapeutic Activities, Therapeutic Exercises Modalities Cold Pack/Ice Massage,Electric Stimulation,Hot Packs, Infrared Therapy,Ultrasound Next Visit Focus/Plan Next Note Type Treatment Note Next Visit Plan recheck paloff press, cat/cow, start to wrok on more stability, try chop w/band standing or 1/2 kneel for core , PNF, STM to back, gentle innominate and lumbar mobility (osteoporosis), focus on core .
--- NOTE | 2024-02-12 15:06 | PT.OPPOC ---
Physical, Occupational & Speech Therapy At [facility] Current Diagnoses Pain in unspecified hip (02/12/24) Pain in right knee (02/12/24) Low back pain, unspecified (02/12/24) Difficulty in walking, not elsewhere classified (02/12/24) Abnormal posture (02/12/24) Weakness (02/12/24) Visit Care Team Role Provider Type Olivia Borjas MD Attending Provider Physician Family Provider Primary Care Provider Referring Provider Specialty: Family Practice Address: [address] [place] [address], [facility] [place], [address] Email: [email or web address] Plan Of Care PT-OP-B Current Condition Start: 11/02/23 17:40 Freq: Status: Active Protocol: Document 11/07/23 09:06 [facility] (Rec: 11/07/23 09:50 [facility] [id number]) Current Condition History of Current Condition Onset Date spring, about 1 year ago, late summer Current Complaints back pain, L foot numbness, R buttocks to HS History of Current Condition Pt reports they found an insufficency fx found in the Spring but does not note any incident that caused it. When she is leaning at the sink, she gets a tiny sharp pain in R buttocks. L foot MT pad is numb and toes can become numb feeling when walking. hx of R ankle sx year ago arthorscopic to clean up jt after childhood injury. Pt reports pain down leg. Does okay if walking flat, or slight incline, but if have to go up steep hill and feels like R glute grabs and goes down to HS. She has dx of osteoporosis . Started [employer] bones program (gets 4 exercises a week). She is on week 5. Driving is painful for LB and R leg. Has had 2 falls this year, slipping and falling in back yard but didn't notice any pain associated with it. this was after she already had dx. Does see doctor tomorrow. Pt reports R ant knee pain with up/down stairs and hills. This has been for years. Did have feet looked at and got special sneakers and MT pad. R hip is waking her up at 3 am in the AM. Pt reports does have a fatty liver (just barely) Prior Treatments and Tests CT: IMPRESSION: No nephrolithiasis or filling defects within the opacified renal collecting system or ureters. Right sacral ala insufficiency fracture. A few pulmonary micro nodules in the lung bases. Consider 12 month follow-up if at high risk for developing lung cancer, per Fleischner Society guidelines. Treatment Goals Patient/Caregiver Goals be able to hike/do uneven terrain, what exercises safety frias to stay away from vs do, Be able to drive and feel comfortable (cannot drive greater than 30 min w/o significant pain), be able to kayak PT-OP-T Assessment and Plan Start: 11/02/23 17:40 Freq: Status: Active Protocol: Document 02/12/24 11:38 [facility] (Rec: 02/12/24 15:03 [facility] [id number]) Physical Therapy Assessment Goals balance Senior Living Goal (LTG) Pt will be able to do SLS B for 30 sec w/o hip drop or trunk rot 12/18-improved 02/11-slight hip drop when on RLE >30 sec B LTG Duration 03/09 activity Short Term Goal (STG) Pt will be able to drive 1 hour w/o significant pain in back and leg. 12/18-has not been driving d/t hand surgery 12/06; last time was still painful prior to that. 01/09/24: pain with bus ride to [place] R>L leg. 02/11-min pain w/1 hour w/only back pain, no leg pain STG Duration 02/06 slow progression relief Director Of Environmental Services Goal (LTG) Pt will be able to hike hills and uneven terrain w/o inc pain in back, leg or knee. 12/18-feel hills in RLE more ( mostly buttocks) more, downhill and flat ok; knees feel stronger 01/09/24: MET GOAL: no pain walking, slight hills & gravel , no pian up and down. Hasn't tried uneven terrain. LTG Duration achieved strength Short Term Goal (STG) Pt will be indep w/HEP STG Duration achieved advancing as able Director Of Environmental Services Goal (LTG) Pt will score at least 3/5 on LPM in all planes and at least 4+/5 on all BLE MMT to show improved strength to improve ease w/typical mobility. 12/18-improved 01/09/24: improved progressing 4 to 4+/5 over all 02/11-mostly achieved-core weakness LTG Duration 2/10 LEFS Impairment 40 Short Term Goal (STG) Pt will improve LEFS score to at least 50 to show improved functional ability. 12/18-45/80 01/09/24: GOAL MET: 57/80 STG Duration 12/09 GOAL MET Director Of Environmental Services Goal (LTG) Pt will improve LEFS score to at least 60 to show improved functional ability. 01/09/24:progress 57/80 LTG Duration achieved 62/80 02/11 Assessment Summary Assessment Pt had improved spinal flexion after manual today. She cont to improve in LE strenght but is still weak w/core and would bneefit from further core stability training. Cont PT to improve movement mechanics and core stabiltiy to dec back and leg pain. Physical Therapy Plan Frequency and Duration Frequency of Treatment 2x/Week Duration of treatment (weeks) 6 Plan of Care Start Date 02/12/24 Plan of Care End Date 03/25/24 Therapeutic Interventions Therapeutic Interventions Balance Training,Home Exercise Program,Joint Mobilizations, Manual Therapy,Neuromuscular Re-education,Patient/Caregiver Education,Self-Care/Home Management,Soft Tissue Mobilization,Taping, Therapeutic Activities, Therapeutic Exercises Modalities Cold Pack/Ice Massage,Electric Stimulation,Hot Packs, Infrared Therapy,Ultrasound Next Visit Focus/Plan Next Note Type Treatment Note Next Visit Plan recheck paloff press, cat/cow, start to wrok on more stability, try chop w/band standing or 1/2 kneel for core , PNF, STM to back, gentle innominate and lumbar mobility (osteoporosis), focus on core . Plan of Care Dates Plan of Care Start Date 02/12/24 Plan of Care End Date 03/25/24 Electronically Signed by: Olivia Hernandez, PT 02/12/24 1355 If you are in agreement with this Plan of Care, please return a signed and dated copy. I have reviewed this Plan of Care and certify that the skilled therapy services above are required to meet the patient?s needs. Physician Signature Date Printed Name and Credentials Clinical Instructor Signature Printed Name and Credentials
--- NOTE | 2024-02-14 11:29 | PT.OTN ---
Current Diagnoses Pain in unspecified hip (02/14/24) Pain in right knee (02/14/24) Low back pain, unspecified (02/14/24) Difficulty in walking, not elsewhere classified (02/14/24) Abnormal posture (02/14/24) Weakness (02/14/24) Physical Therapy Treatment Note PT-OP-A Visit Information Start: 11/02/23 17:40 Freq: Status: Active Protocol: Document 02/14/24 10:49 SP (Rec: 02/14/24 11:35 SP [id number]) Out-Patient Physical Therapy Visit Information Visit Information Visit Type Treatment Note Visit Start Time 10:49 Visit Stop Time 11:29 Visit Number Number of PANTOGRAPH I ENGRAVER Visits 1 Precautions Precautions hx of sacral ala fx earlier this year PT-OP-B Current Condition Start: 11/02/23 17:40 Freq: Status: Active Protocol: Document 11/07/23 09:06 [facility] (Rec: 11/07/23 09:50 [facility] [id number]) Current Condition History of Current Condition Onset Date spring, about 1 year ago, late summer Current Complaints back pain, L foot numbness, R buttocks to HS History of Current Condition Pt reports they found an insufficency fx found in the Spring but does not note any incident that caused it. When she is leaning at the sink, she gets a tiny sharp pain in R buttocks. L foot MT pad is numb and toes can become numb feeling when walking. hx of R ankle sx year ago arthorscopic to clean up jt after childhood injury. Pt reports pain down leg. Does okay if walking flat, or slight incline, but if have to go up steep hill and feels like R glute grabs and goes down to HS. She has dx of osteoporosis . Started [employer] bones program (gets 4 exercises a week). She is on week 5. Driving is painful for LB and R leg. Has had 2 falls this year, slipping and falling in back yard but didn't notice any pain associated with it. this was after she already had dx. Does see doctor tomorrow. Pt reports R ant knee pain with up/down stairs and hills. This has been for years. Did have feet looked at and got special sneakers and MT pad. R hip is waking her up at 3 am in the AM. Pt reports does have a fatty liver (just barely) Prior Treatments and Tests CT: IMPRESSION: No nephrolithiasis or filling defects within the opacified renal collecting system or ureters. Right sacral ala insufficiency fracture. A few pulmonary micro nodules in the lung bases. Consider 12 month follow-up if at high risk for developing lung cancer, per Fleischner Society guidelines. Treatment Goals Patient/Caregiver Goals be able to hike/do uneven terrain, what exercises safety frias to stay away from vs do, Be able to drive and feel comfortable (cannot drive greater than 30 min w/o significant pain), be able to kayak PT-OP-C Subjective Start: 11/02/23 17:40 Freq: Status: Active Protocol: Document 02/14/24 10:49 SP (Rec: 02/14/24 11:35 SP [id number]) OP-PT Subjective Patient Comments Patient Comments Pt reports R>L adductor soreness to touch and from new exercises hip abd. Used CP/HP and tennis ball roll help tension reduction. PT-OP-D Balance Start: 11/02/23 17:40 Freq: Status: Active Protocol: Document 12/19/23 07:32 [facility] (Rec: 12/19/23 08:20 [facility] [id number]) Balance Tests Single Limb Standing Single Limb- Right minor hip drop 27 sec Single Limb- Left >30 sec R trunk rot PT-OP-G Mobility & Gait Start: 11/02/23 17:40 Freq: Status: Active Protocol: Document 11/07/23 09:06 [facility] (Rec: 11/07/23 09:50 [facility] [id number]) OP Gait Assessment Comments Gait Comments dec trunk motion, dec UE swing , harder landing on RLE PT-OP-J Posture/Palpation/Skin Start: 11/02/23 17:40 Freq: Status: Active Protocol: Document 02/12/24 11:38 [facility] (Rec: 02/12/24 15:03 [facility] [id number]) Posture Evaluation [facility] Postural Classification System Lumbar Protective Mechanism Left AP 1 Lumbar Protective Mechanism Right AP 2 Lumbar Protective Mechanism Left PA 5 Lumbar Protective Mechanism Right PA 2 PT-OP-K Range of Motion Start: 11/02/23 17:40 Freq: Status: Active Protocol: Document 11/07/23 09:06 [facility] (Rec: 11/07/23 09:50 [facility] [id number]) Ankle and Foot Goniometric Range of Motion Ankle and Foot ROM Limitations Comments 4 in to wall but knee goes more med on R PT-OP-L Special Tests Start: 11/02/23 17:40 Freq: Status: Active Protocol: Document 11/07/23 09:06 [facility] (Rec: 11/07/23 09:50 [facility] [id number]) Special Tests Lumbar Spine Special Tests Straight Leg Raise Test Results positive B Slump Test Results positive B PT-OP-M Strength Start: 11/02/23 17:40 Freq: Status: Active Protocol: Document 02/12/24 11:38 LR (Rec: 02/12/24 15:03 [facility] [id number]) Hip Strength Hip Manual Muscle Testing Right Flexion (L2) 4 Good Extension (S1) 5 Normal Abduction 4+ Good+ Adduction 5 Normal External Rotation 5 Normal Internal Rotation 5 Normal Left Flexion (L2) 4+ Good+ Extension (S1) 5 Normal Abduction 4+ Good+ Adduction 4+ Good+ External Rotation 5 Normal Internal Rotation 5 Normal Knee Strength Knee Manual Muscle Testing Right Flexion (S2) 5 Normal Extension (L3) 5 Normal Left Flexion (S2) 5 Normal Extension (L3) 5 Normal PT-OP-Q Treatments Start: 11/02/23 17:40 Freq: Status: Active Protocol: Document 02/14/24 10:49 SP (Rec: 02/14/24 11:35 SP [id number]) Therapeutic Exercises Supine Exercises stretch Supine Exercise Name adductor (butterfly & strap) opp knee bent, Fig 4 Side bilateral Reps/Minutes 60 sec butterfly, 30 sec single Comments cued neutral pelvis, better gentle stretch post manual Standing Exercises Chop Standing Exercise Name added to HEP /c HO Side bilateral Resistance Tb #3 anchored high Reps/Minutes 10 reps Comments cued rhomboid, hip hinge buttocks back mod cue, chop outside opp thigh paloff press Side bilateral Equipment Used 2 dark blue bands (1 dark green home) Reps/Minutes 15 each side Comments cues soft knee, elevated posture, rot of spine, press out chest Manual Therapy Treatment Consent Patient gave verbal consent for manual Yes treatment Soft Tissue Mobilization adductor Body Location R Mobilization Type Rolling Intensity/Depth Moderate Comments mid, proximal STMs and MWM hip IR/ER PT-OP-R Modalities Start: 11/02/23 17:40 Freq: Status: Active Protocol: Document 02/01/24 08:45 AB (Rec: 02/01/24 12:19 AB [id number]) Hot Pack/Cold Pack Treatment ice pack Location right knee Patient Position Hooklying Comments 10 min PT-OP-T Assessment and Plan Start: 11/02/23 17:40 Freq: Status: Active Protocol: Document 02/14/24 10:49 SP (Rec: 02/14/24 11:35 SP [id number]) Physical Therapy Assessment Goals balance Halfway Goal (LTG) Pt will be able to do SLS B for 30 sec w/o hip drop or trunk rot 12/18-improved 02/11-slight hip drop when on RLE >30 sec B LTG Duration 03/09 activity Short Term Goal (STG) Pt will be able to drive 1 hour w/o significant pain in back and leg. 12/18-has not been driving d/t hand surgery 12/06; last time was still painful prior to that. 01/09/24: pain with bus ride to [facility] R>L leg. 02/11-min pain w/1 hour w/only back pain, no leg pain STG Duration 02/06 slow progression relief Halfway Goal (LTG) Pt will be able to hike hills and uneven terrain w/o inc pain in back, leg or knee. 12/18-feel hills in RLE more ( mostly buttocks) more, downhill and flat ok; knees feel stronger 01/09/24: MET GOAL: no pain walking, slight hills & gravel , no pian up and down. Hasn't tried uneven terrain. LTG Duration achieved strength Short Term Goal (STG) Pt will be indep w/HEP STG Duration achieved advancing as able Halfway Goal (LTG) Pt will score at least 3/5 on LPM in all planes and at least 4+/5 on all BLE MMT to show improved strength to improve ease w/typical mobility. 12/18-improved 01/09/24: improved progressing 4 to 4+/5 over all 02/11-mostly achieved-core weakness LTG Duration 210 LEFS Impairment 40 Short Term Goal (STG) Pt will improve LEFS score to at least 50 to show improved functional ability. 12/18-4501/09/24: GOAL MET: 57/80 STG Duration 12/09 GOAL MET Manager Product Marketing Goal (LTG) Pt will improve LEFS score to at least 60 to show improved functional ability. 01/09/24:progress 57/80 LTG Duration achieved 62/80 02/11 Assessment Summary Assessment Pt sensitive adductor palpation but found helpful decreased tension manual and improved gentle stretch response education carryover self adductor stretch and use rolling pin responded well. Improved paloff press core engagement with cues for stance soft knee, elevated ribcage. Tolerated initaited core choping with Mod cuing for maintain rhomboid fac during hip hinge chopping motion. Physical Therapy Plan Frequency and Duration Frequency of Treatment 2x/Week Duration of treatment (weeks) 6 Plan of Care Start Date 02/12/24 Plan of Care End Date 03/25/24 Therapeutic Interventions Therapeutic Interventions Balance Training,Home Exercise Program,Joint Mobilizations, Manual Therapy,Neuromuscular Re-education,Patient/Caregiver Education,Self-Care/Home Management,Soft Tissue Mobilization,Taping, Therapeutic Activities, Therapeutic Exercises Modalities Cold Pack/Ice Massage,Electric Stimulation,Hot Packs, Infrared Therapy,Ultrasound Next Visit Focus/Plan Next Note Type Treatment Note Next Visit Plan Recheck band chop and paloff press postural alignment/form, continue cat/cow, start to wrok on more stability, if not lana stand 1/2 kneel for core, PNF, STM to back, gentle innominate and lumbar mobility (osteoporosis), focus on core .
--- NOTE | 2024-02-21 13:41 | PT.OTN ---
Current Diagnoses Pain in unspecified hip (02/21/24) Pain in right knee (02/21/24) Low back pain, unspecified (02/21/24) Difficulty in walking, not elsewhere classified (02/21/24) Abnormal posture (02/21/24) Weakness (02/21/24) Physical Therapy Treatment Note PT-OP-A Visit Information Start: 11/02/23 17:40 Freq: Status: Active Protocol: Document 02/21/24 13:03 SP (Rec: 02/21/24 13:46 SP [id number]) Out-Patient Physical Therapy Visit Information Visit Information Visit Type Treatment Note Visit Start Time 13:03 Visit Stop Time 13:41 Visit Number [id number] Number of INSPECTOR CHIEF Visits 1 Precautions Precautions hx of sacral ala fx earlier this year PT-OP-B Current Condition Start: 11/02/23 17:40 Freq: Status: Active Protocol: Document 11/07/23 09:06 [facility] (Rec: 11/07/23 09:50 [facility] [id number]) Current Condition History of Current Condition Onset Date spring, about 1 year ago, late summer Current Complaints back pain, L foot numbness, R buttocks to HS History of Current Condition Pt reports they found an insufficency fx found in the Spring but does not note any incident that caused it. When she is leaning at the sink, she gets a tiny sharp pain in R buttocks. L foot MT pad is numb and toes can become numb feeling when walking. hx of R ankle sx year ago arthorscopic to clean up jt after childhood injury. Pt reports pain down leg. Does okay if walking flat, or slight incline, but if have to go up steep hill and feels like R glute grabs and goes down to HS. She has dx of osteoporosis . Started [employer] bones program (gets 4 exercises a week). She is on week 5. Driving is painful for LB and R leg. Has had 2 falls this year, slipping and falling in back yard but didn't notice any pain associated with it. this was after she already had dx. Does see doctor tomorrow. Pt reports R ant knee pain with up/down stairs and hills. This has been for years. Did have feet looked at and got special sneakers and MT pad. R hip is waking her up at 3 am in the AM. Pt reports does have a fatty liver (just barely) Prior Treatments and Tests CT: IMPRESSION: No nephrolithiasis or filling defects within the opacified renal collecting system or ureters. Right sacral ala insufficiency fracture. A few pulmonary micro nodules in the lung bases. Consider 12 month follow-up if at high risk for developing lung cancer, per Fleischner Society guidelines. Treatment Goals Patient/Caregiver Goals be able to hike/do uneven terrain, what exercises safety frias to stay away from vs do, Be able to drive and feel comfortable (cannot drive greater than 30 min w/o significant pain), be able to kayak PT-OP-C Subjective Start: 11/02/23 17:40 Freq: Status: Active Protocol: Document 02/21/24 13:03 SP (Rec: 02/21/24 13:46 SP [id number]) OP-PT Subjective Patient Comments Patient Comments Pt reports woke up with no pain and went for walk and had some soreness R adductor and glut but not bad. She was able to drive to [facility] and back with no pain. PT-OP-D Balance Start: 11/02/23 17:40 Freq: Status: Active Protocol: Document 12/19/23 07:32 [facility] (Rec: 12/19/23 08:20 [facility] [id number]) Balance Tests Single Limb Standing Single Limb- Right minor hip drop 27 sec Single Limb- Left >30 sec R trunk rot PT-OP-G Mobility & Gait Start: 11/02/23 17:40 Freq: Status: Active Protocol: Document 11/07/23 09:06 [facility] (Rec: 11/07/23 09:50 [facility] [id number]) OP Gait Assessment Comments Gait Comments dec trunk motion, dec UE swing , harder landing on RLE PT-OP-J Posture/Palpation/Skin Start: 11/02/23 17:40 Freq: Status: Active Protocol: Document 02/12/24 11:38 [facility] (Rec: 02/12/24 15:03 [facility] [id number]) Posture Evaluation [facility] Postural Classification System Lumbar Protective Mechanism Left AP 1 Lumbar Protective Mechanism Right AP 2 Lumbar Protective Mechanism Left PA 5 Lumbar Protective Mechanism Right PA 2 PT-OP-K Range of Motion Start: 11/02/23 17:40 Freq: Status: Active Protocol: Document 11/07/23 09:06 [facility] (Rec: 11/07/23 09:50 [facility] [id number]) Ankle and Foot Goniometric Range of Motion Ankle and Foot ROM Limitations Comments 4 in to wall but knee goes more med on R PT-OP-L Special Tests Start: 11/02/23 17:40 Freq: Status: Active Protocol: Document 11/07/23 09:06 [facility] (Rec: 11/07/23 09:50 [facility] [id number]) Special Tests Lumbar Spine Special Tests Straight Leg Raise Test Results positive B Slump Test Results positive B PT-OP-M Strength Start: 11/02/23 17:40 Freq: Status: Active Protocol: Document 02/12/24 11:38 [facility] (Rec: 02/12/24 15:03 [facility] [id number]) Hip Strength Hip Manual Muscle Testing Right Flexion (L2) 4 Good Extension (S1) 5 Normal Abduction 4+ Good+ Adduction 5 Normal External Rotation 5 Normal Internal Rotation 5 Normal Left Flexion (L2) 4+ Good+ Extension (S1) 5 Normal Abduction 4+ Good+ Adduction 4+ Good+ External Rotation 5 Normal Internal Rotation 5 Normal Knee Strength Knee Manual Muscle Testing Right Flexion (S2) 5 Normal Extension (L3) 5 Normal Left Flexion (S2) 5 Normal Extension (L3) 5 Normal PT-OP-Q Treatments Start: 11/02/23 17:40 Freq: Status: Active Protocol: Document 02/21/24 13:03 SP (Rec: 02/21/24 13:46 SP [id number]) Therapeutic Exercises Supine Exercises stretch Supine Exercise Name adductor (butterfly & strap) opp knee bent, Fig 4 Side bilateral Reps/Minutes 60 sec butterfly, 30 sec single Comments cued neutral pelvis, better gentle stretch post manual Standing Exercises Chop Standing Exercise Name reviewed: HEP /c HO Side bilateral Resistance Tb #3 anchored high Reps/Minutes 10 reps Comments cued rhomboid, hip hinge buttocks back mod cue, chop outside opp thigh paloff press Side bilateral Equipment Used 2 dark blue bands (1 dark green home) Reps/Minutes 20 each side Comments cues soft knee, elevated posture, rot of spine, press out chest ext Standing Exercise Name added to HEP: shld Ext SLS- no HO provided Side bilateral Resistance TB #3 Reps/Minutes x10 Comments cued tall over stance LE, glut max drive ext under trunk resisted walk Standing Exercise Name fwd monster walk/back walk Side bilateral Resistance TB #3 [place] at ankles Reps/Minutes 2x20ft ea Comments Cues for feet // and keep tension on bank sidesteps Standing Exercise Name lateral Side bilateral Resistance Tb # 3 [place] at ankles Reps/Minutes 2x20ft Comments Cues for feet // and keep tension on bank Other Exercises Standing hip stretches on walk Other Exercise Name hip flexor, piriformis Equipment Used contact tree/street sign post Comments cues set up trunk movement, good stretch response Manual Therapy Treatment Soft Tissue Mobilization adductor Body Location R Mobilization Type Rolling Intensity/Depth Moderate Comments mid, proximal STMs and MWM hip IR/ER Joint Mobilizations hip Joint R Direction PA Grade II Comments CR hip IR then more ER rotation. Neuro Re-Education Treatment Balance Activities SLS Comments RLE 51 sec LLE Improved level pelvis PT-OP-R Modalities Start: 11/02/23 17:40 Freq: Status: Active Protocol: Document 02/01/24 08:45 AB (Rec: 02/01/24 12:19 AB [id number]) Hot Pack/Cold Pack Treatment ice pack Location right knee Patient Position Hooklying Comments 10 min PT-OP-T Assessment and Plan Start: 11/02/23 17:40 Freq: Status: Active Protocol: Document 02/21/24 13:03 SP (Rec: 02/21/24 13:46 SP [id number]) Physical Therapy Assessment Goals balance Halfway Goal (LTG) Pt will be able to do SLS B for 30 sec w/o hip drop or trunk rot 12/18-improved 02/11-slight hip drop when on RLE >30 sec B 02/21/24: RLE 51 sec, LLE 60 sec LTG Duration 03/09 achieved 02/21/24 activity Short Term Goal (STG) Pt will be able to drive 1 hour w/o significant pain in back and leg. 12/18-has not been driving d/t hand surgery 12/06; last time was still painful prior to that. 01/09/24: pain with bus ride to [facility] R>L leg. 02/11-min pain w/1 hour w/only back pain, no leg pain 02/21/24: out to [facility] and back no R adductor pain. STG Duration 02/06 slow progression relief Halfway Goal (LTG) Pt will be able to hike hills and uneven terrain w/o inc pain in back, leg or knee. 12/18-feel hills in RLE more ( mostly buttocks) more, downhill and flat ok; knees feel stronger 01/09/24: MET GOAL: no pain walking, slight hills & gravel , no pian up and down. Hasn't tried uneven terrain. LTG Duration achieved strength Short Term Goal (STG) Pt will be indep w/HEP STG Duration achieved advancing as able Halfway Goal (LTG) Pt will score at least 3/5 on LPM in all planes and at least 4+/5 on all BLE MMT to show improved strength to improve ease w/typical mobility. 12/18-improved 01/09/24: improved progressing 4 to 4+/5 over all 02/11-mostly achieved-core weakness LTG Duration 2/10 LEFS Impairment 40 Short Term Goal (STG) Pt will improve LEFS score to at least 50 to show improved functional ability. 12/18-45/80 01/09/24: GOAL MET: 57/80 STG Duration 12/09 GOAL MET Recruitment Consultant Goal (LTG) Pt will improve LEFS score to at least 60 to show improved functional ability. 01/09/24:progress 57/80 LTG Duration achieved 62/80 02/11 Assessment Summary Assessment Pt making improvements in pain reduction no pain driving 20 min out back [place] 20 min. Progressed SLS against resistance shld ext, cues level pelvis, improved core engagement and level pelvis corrections, cued glut max hip under trunk. REviewed adductor and piriformis stretches out walking to improved flexibility with good response no hip/adductor pinch feeling. Physical Therapy Plan Frequency and Duration Frequency of Treatment 2x/Week Duration of treatment (weeks) 6 Plan of Care Start Date 02/12/24 Plan of Care End Date 03/25/24 Therapeutic Interventions Therapeutic Interventions Balance Training,Home Exercise Program,Joint Mobilizations, Manual Therapy,Neuromuscular Re-education,Patient/Caregiver Education,Self-Care/Home Management,Soft Tissue Mobilization,Taping, Therapeutic Activities, Therapeutic Exercises Modalities Cold Pack/Ice Massage,Electric Stimulation,Hot Packs, Infrared Therapy,Ultrasound Next Visit Focus/Plan Next Note Type Treatment Note Next Visit Plan REview HEP as needed: progress on more stability SLS toward goal. Next trial SLS gliders, step ups uneven surfaces. Manual: PNF, STM to back, gentle innominate and lumbar mobility (osteoporosis), focus on core.
--- NOTE | 2024-02-23 13:41 | PT.OTN ---
Current Diagnoses Pain in unspecified hip (02/23/24) Pain in right knee (02/23/24) Low back pain, unspecified (02/23/24) Difficulty in walking, not elsewhere classified (02/23/24) Abnormal posture (02/23/24) Weakness (02/23/24) Physical Therapy Treatment Note PT-OP-A Visit Information Start: 11/02/23 17:40 Freq: Status: Active Protocol: Document 02/23/24 13:01 SP (Rec: 02/23/24 13:58 SP [id number]) Out-Patient Physical Therapy Visit Information Visit Information Visit Type Treatment Note Visit Start Time 13:01 Visit Stop Time 13:41 Visit Number Number of MOLD INSPECTOR Visits 3 Precautions Precautions hx of sacral ala fx earlier this year PT-OP-B Current Condition Start: 11/02/23 17:40 Freq: Status: Active Protocol: Document 11/07/23 09:06 [facility] (Rec: 11/07/23 09:50 [facility] [id number]) Current Condition History of Current Condition Onset Date spring, about 1 year ago, late summer Current Complaints back pain, L foot numbness, R buttocks to HS History of Current Condition Pt reports they found an insufficency fx found in the Spring but does not note any incident that caused it. When she is leaning at the sink, she gets a tiny sharp pain in R buttocks. L foot MT pad is numb and toes can become numb feeling when walking. hx of R ankle sx year ago arthorscopic to clean up jt after childhood injury. Pt reports pain down leg. Does okay if walking flat, or slight incline, but if have to go up steep hill and feels like R glute grabs and goes down to HS. She has dx of osteoporosis . Started [employer] bones program (gets 4 exercises a week). She is on week 5. Driving is painful for LB and R leg. Has had 2 falls this year, slipping and falling in back yard but didn't notice any pain associated with it. this was after she already had dx. Does see doctor tomorrow. Pt reports R ant knee pain with up/down stairs and hills. This has been for years. Did have feet looked at and got special sneakers and MT pad. R hip is waking her up at 3 am in the AM. Pt reports does have a fatty liver (just barely) Prior Treatments and Tests CT: IMPRESSION: No nephrolithiasis or filling defects within the opacified renal collecting system or ureters. Right sacral ala insufficiency fracture. A few pulmonary micro nodules in the lung bases. Consider 12 month follow-up if at high risk for developing lung cancer, per Fleischner Society guidelines. Treatment Goals Patient/Caregiver Goals be able to hike/do uneven terrain, what exercises safety frias to stay away from vs do, Be able to drive and feel comfortable (cannot drive greater than 30 min w/o significant pain), be able to kayak PT-OP-C Subjective Start: 11/02/23 17:40 Freq: Status: Active Protocol: Document 02/23/24 13:01 SP (Rec: 02/23/24 13:58 SP [id number]) OP-PT Subjective Patient Comments Patient Comments Pt reports walking 6miles this am. Stopped ex that includes her R hand due to irritation jt right now. She sat in [employer] chairs for lunch and mid back sore, wasn't supportive. But she felt good after last tx. PT-OP-D Balance Start: 11/02/23 17:40 Freq: Status: Active Protocol: Document 12/19/23 07:32 [facility] (Rec: 12/19/23 08:20 [facility] [id number]) Balance Tests Single Limb Standing Single Limb- Right minor hip drop 27 sec Single Limb- Left >30 sec R trunk rot PT-OP-G Mobility & Gait Start: 11/02/23 17:40 Freq: Status: Active Protocol: Document 11/07/23 09:06 [facility] (Rec: 11/07/23 09:50 [facility] [id number]) OP Gait Assessment Comments Gait Comments dec trunk motion, dec UE swing , harder landing on RLE PT-OP-J Posture/Palpation/Skin Start: 11/02/23 17:40 Freq: Status: Active Protocol: Document 02/12/24 11:38 [facility] (Rec: 02/12/24 15:03 [facility] [id number]) Posture Evaluation [facility] Postural Classification System Lumbar Protective Mechanism Left AP 1 Lumbar Protective Mechanism Right AP 2 Lumbar Protective Mechanism Left PA 5 Lumbar Protective Mechanism Right PA 2 PT-OP-K Range of Motion Start: 11/02/23 17:40 Freq: Status: Active Protocol: Document 11/07/23 09:06 [facility] (Rec: 11/07/23 09:50 [facility] [id number]) Ankle and Foot Goniometric Range of Motion Ankle and Foot ROM Limitations Comments 4 in to wall but knee goes more med on R PT-OP-L Special Tests Start: 11/02/23 17:40 Freq: Status: Active Protocol: Document 11/07/23 09:06 [facility] (Rec: 11/07/23 09:50 [facility] [id number]) Special Tests Lumbar Spine Special Tests Straight Leg Raise Test Results positive B Slump Test Results positive B PT-OP-M Strength Start: 11/02/23 17:40 Freq: Status: Active Protocol: Document 02/12/24 11:38 [facility] (Rec: 02/12/24 15:03 [facility] [id number]) Hip Strength Hip Manual Muscle Testing Right Flexion (L2) 4 Good Extension (S1) 5 Normal Abduction 4+ Good+ Adduction 5 Normal External Rotation 5 Normal Internal Rotation 5 Normal Left Flexion (L2) 4+ Good+ Extension (S1) 5 Normal Abduction 4+ Good+ Adduction 4+ Good+ External Rotation 5 Normal Internal Rotation 5 Normal Knee Strength Knee Manual Muscle Testing Right Flexion (S2) 5 Normal Extension (L3) 5 Normal Left Flexion (S2) 5 Normal Extension (L3) 5 Normal PT-OP-Q Treatments Start: 11/02/23 17:40 Freq: Status: Active Protocol: Document 02/23/24 13:01 SP (Rec: 02/23/24 13:58 SP [id number]) Therapeutic Exercises Supine Exercises resisted clamshell Supine Exercise Name reviewed Side bilateral Resistance Tb #2 teal Reps/Minutes x10 Comments good form bridge Supine Exercise Name 1. Bilateral 2. SL Resistance 1. TB #2 at thighs 2. AROM Reps/Minutes 1. 5 SH X10 2. X 5 each LE Comments verbal cues to perform slowly and segmentally, SL 90/90 Sidelying Exercises open book Reps/Minutes x10 Comments TS rotation improved clamshell Sidelying Exercise Name review past HEP Side bilateral Resistance TB #1>#2 at thighs Reps/Minutes x10 Comments cued postural alignment, good control return Standing Exercises SL RDL Standing Exercise Name added to HEP /c HO Side bilateral Resistance AROM (no weight) Equipment Used front mirror Reps/Minutes 10 reps Comments cued back leg lift, straight back, hip hinge, Rknee lateral shift midline TA april Standing Exercise Name reviewed Side bilateral Resistance Tb #2 at feet Reps/Minutes 20 reps alternating Comments cued feet/knees apart, level pelvis, eccentric control stretch Standing Exercise Name hip flexor Side bilateral Equipment Used contact table Reps/Minutes 30 sec Comments allow heel elevate, pelvis fwd Manual Therapy Treatment Consent Patient gave verbal consent for manual Yes treatment Soft Tissue Mobilization back Body Location B Mid thoracic: ES, paraspinals, LS QL Mobilization Type Rolling,Strumming Intensity/Depth Moderate Body Position SL glute Body Location R glute and piriformis Mobilization Type Cross-Friction,Rolling Intensity/Depth Moderate Body Position prone over pillows Comments PA prox femur, MWM & CR ER PT-OP-R Modalities Start: 11/02/23 17:40 Freq: Status: Active Protocol: Document 02/01/24 08:45 AB (Rec: 02/01/24 12:19 AB [id number]) Hot Pack/Cold Pack Treatment ice pack Location right knee Patient Position Hooklying Comments 10 min PT-OP-T Assessment and Plan Start: 11/02/23 17:40 Freq: Status: Active Protocol: Document 02/23/24 13:01 SP (Rec: 02/23/24 13:58 SP [id number]) Physical Therapy Assessment Goals activity Short Term Goal (STG) Pt will be able to drive 1 hour w/o significant pain in back and leg. 12/18-has not been driving d/t hand surgery 12/06; last time was still painful prior to that. 01/09/24: pain with bus ride to [place] R>L leg. 02/11-min pain w/1 hour w/only back pain, no leg pain 02/21/24: out to [facility] and back no R adductor pain. STG Duration 02/06 slow progression relief Finish Specialist Goal (LTG) Pt will be able to hike hills and uneven terrain w/o inc pain in back, leg or knee. 12/18-feel hills in RLE more ( mostly buttocks) more, downhill and flat ok; knees feel stronger 01/09/24: MET GOAL: no pain walking, slight hills & gravel , no pian up and down. Hasn't tried uneven terrain. LTG Duration achieved strength Short Term Goal (STG) Pt will be indep w/HEP STG Duration achieved advancing as able Mcfp Goal (LTG) Pt will score at least 3/5 on LPM in all planes and at least 4+/5 on all BLE MMT to show improved strength to improve ease w/typical mobility. 12/18-improved 01/09/24: improved progressing 4 to 4+/5 over all 02/11-mostly achieved-core weakness LTG Duration 03/18 Assessment Summary Assessment Pt reported decreased tightness mid thoracic and gluteal region post manual. Instructed open book during tx for scapular and ribcage mobility, good response more movement rotation. Improved performance supine and standing resisted LE strengthening HEP, Hold HEP with use of TB BUEs due to R hand irritation at this time, occasional cuing for level pelvis when needed. Progressed SLS with hip hinge no UE support with cues for proper form and R knee lateral vier midline improved stability for carryover home /c HO. Physical Therapy Plan Frequency and Duration Frequency of Treatment 2x/Week Duration of treatment (weeks) 6 Plan of Care Start Date 02/12/24 Plan of Care End Date 03/25/24 Therapeutic Interventions Therapeutic Interventions Balance Training,Home Exercise Program,Joint Mobilizations, Manual Therapy,Neuromuscular Re-education,Patient/Caregiver Education,Self-Care/Home Management,Soft Tissue Mobilization,Taping, Therapeutic Activities, Therapeutic Exercises Modalities Cold Pack/Ice Massage,Electric Stimulation,Hot Packs, Infrared Therapy,Ultrasound Next Visit Focus/Plan Next Note Type Treatment Note Next Visit Plan REview HEP as needed, recentSL RDL, progress on more stability SLS toward goal. Next trial SLS gliders, step ups uneven surfaces. Manual: PNF, STM to back, gentle innominate and lumbar mobility (osteoporosis), focus on core.
--- NOTE | 2024-02-26 17:04 | PT.OTN ---
Current Diagnoses Pain in unspecified hip (02/26/24) Pain in right knee (02/26/24) Low back pain, unspecified (02/26/24) Difficulty in walking, not elsewhere classified (02/26/24) Abnormal posture (02/26/24) Weakness (02/26/24) Physical Therapy Treatment Note PT-OP-A Visit Information Start: 11/02/23 17:40 Freq: Status: Active Protocol: Document 02/26/24 16:25 [facility] (Rec: 02/26/24 17:04 [facility] [id number]) Out-Patient Physical Therapy Visit Information Visit Information Visit Type Discharge Summary Visit Start Time 16:21 Visit Stop Time 17:00 Visit Number Number of TUBULAR SPLITTING MACHINE TENDER Visits 0 PT-OP-B Current Condition Start: 11/02/23 17:40 Freq: Status: Active Protocol: Document 11/07/23 09:06 [facility] (Rec: 11/07/23 09:50 [facility] [id number]) Current Condition History of Current Condition Onset Date spring, about 1 year ago, late summer Current Complaints back pain, L foot numbness, R buttocks to HS History of Current Condition Pt reports they found an insufficency fx found in the Spring but does not note any incident that caused it. When she is leaning at the sink, she gets a tiny sharp pain in R buttocks. L foot MT pad is numb and toes can become numb feeling when walking. hx of R ankle sx year ago arthorscopic to clean up jt after childhood injury. Pt reports pain down leg. Does okay if walking flat, or slight incline, but if have to go up steep hill and feels like R glute grabs and goes down to HS. She has dx of osteoporosis . Started [employer] bones program (gets 4 exercises a week). She is on week 5. Driving is painful for LB and R leg. Has had 2 falls this year, slipping and falling in back yard but didn't notice any pain associated with it. this was after she already had dx. Does see doctor tomorrow. Pt reports R ant knee pain with up/down stairs and hills. This has been for years. Did have feet looked at and got special sneakers and MT pad. R hip is waking her up at 3 am in the AM. Pt reports does have a fatty liver (just barely) Prior Treatments and Tests CT: IMPRESSION: No nephrolithiasis or filling defects within the opacified renal collecting system or ureters. Right sacral ala insufficiency fracture. A few pulmonary micro nodules in the lung bases. Consider 12 month follow-up if at high risk for developing lung cancer, per Fleischner Society guidelines. Treatment Goals Patient/Caregiver Goals be able to hike/do uneven terrain, what exercises safety frias to stay away from vs do, Be able to drive and feel comfortable (cannot drive greater than 30 min w/o significant pain), be able to kayak PT-OP-C Subjective Start: 11/02/23 17:40 Freq: Status: Active Protocol: Document 02/26/24 16:25 [facility] (Rec: 02/26/24 17:04 [facility] [id number]) OP-PT Subjective Patient Comments Patient Comments Pt reports overall doing ok. She has a little issue in glutes today. PT-OP-D Balance Start: 11/02/23 17:40 Freq: Status: Active Protocol: Document 12/19/23 07:32 [facility] (Rec: 12/19/23 08:20 [facility] [id number]) Balance Tests Single Limb Standing Single Limb- Right minor hip drop 27 sec Single Limb- Left >30 sec R trunk rot PT-OP-G Mobility & Gait Start: 11/02/23 17:40 Freq: Status: Active Protocol: Document 11/07/23 09:06 [facility] (Rec: 11/07/23 09:50 [facility] [id number]) OP Gait Assessment Comments Gait Comments dec trunk motion, dec UE swing , harder landing on RLE PT-OP-J Posture/Palpation/Skin Start: 11/02/23 17:40 Freq: Status: Active Protocol: Document 02/26/24 16:25 [facility] (Rec: 02/26/24 17:04 [facility] [id number]) Posture Evaluation [facility] Postural Classification System Lumbar Protective Mechanism Left AP 2 Lumbar Protective Mechanism Right AP 2 Lumbar Protective Mechanism Left PA 5 Lumbar Protective Mechanism Right PA 3 PT-OP-K Range of Motion Start: 11/02/23 17:40 Freq: Status: Active Protocol: Document 11/07/23 09:06 [facility] (Rec: 11/07/23 09:50 [facility] [id number]) Ankle and Foot Goniometric Range of Motion Ankle and Foot ROM Limitations Comments 4 in to wall but knee goes more med on R PT-OP-L Special Tests Start: 11/02/23 17:40 Freq: Status: Active Protocol: Document 11/07/23 09:06 [facility] (Rec: 11/07/23 09:50 [facility] [id number]) Special Tests Lumbar Spine Special Tests Straight Leg Raise Test Results positive B Slump Test Results positive B PT-OP-M Strength Start: 11/02/23 17:40 Freq: Status: Active Protocol: Document 02/26/24 16:25 [facility] (Rec: 02/26/24 17:04 [facility] [id number]) Hip Strength Hip Manual Muscle Testing Right Flexion (L2) 4+ Good+ Extension (S1) 5 Normal Abduction 5 Normal Adduction 5 Normal External Rotation 5 Normal Internal Rotation 5 Normal Left Flexion (L2) 5 Normal Extension (S1) 5 Normal Abduction 5 Normal Adduction 5 Normal External Rotation 5 Normal Internal Rotation 5 Normal Knee Strength Knee Manual Muscle Testing Right Flexion (S2) 5 Normal Extension (L3) 5 Normal Left Flexion (S2) 5 Normal Extension (L3) 5 Normal PT-OP-Q Treatments Start: 11/02/23 17:40 Freq: Status: Active Protocol: Document 02/26/24 16:25 [facility] (Rec: 02/26/24 17:04 [facility] [id number]) Therapeutic Exercises Supine Exercises bridge Supine Exercise Name 1. DL 2. SL Reps/Minutes 3 ea stretch Supine Exercise Name 1 figure 4 2. butterfly Side bilateral Reps/Minutes 20 sec ea Prone Exercises plank Prone Exercise Name forearm and feet Side bilateral Reps/Minutes 30 sec Sitting Exercises sciatic n glide Side bilateral Reps/Minutes 5 ea stretch Sitting Exercise Name piriformis Side bilateral Reps/Minutes 30 sec Standing Exercises SL RDL Standing Exercise Name review Side bilateral Resistance AROM (no weight) Equipment Used front mirror Reps/Minutes 5 reps Comments cued back leg lift, straight back, hip hinge, Rknee lateral shift midline squat with band Side bilateral Reps/Minutes 10 Comments no band step ups Standing Exercise Name 1. fwd 2. lat Side bilateral Reps/Minutes 10 ea Comments cues knees resisted walk Standing Exercise Name fwd monster walk/back walk Side bilateral Resistance TB #[facility] at ankles Reps/Minutes 10ft ea stretch Standing Exercise Name add Side bilateral Reps/Minutes 20 sec sidesteps Standing Exercise Name lateral Side bilateral Resistance Tb # [address] [facility] [place] at ankles Reps/Minutes 10ft Comments Cues for feet // and keep tension on bank Other Exercises isometric Other Exercise Name B MMT and LPM Manual Therapy Treatment Consent Patient gave verbal consent for manual Yes treatment Joint Mobilizations hip Joint L Comments free the ball ER and inf glide c/r PT-OP-R Modalities Start: 11/02/23 17:40 Freq: Status: Active Protocol: Document 02/01/24 08:45 [facility] (Rec: 02/01/24 12:19 AB [id number]) Hot Pack/Cold Pack Treatment ice pack Location right knee Patient Position Hooklying Comments 10 min PT-OP-T Assessment and Plan Start: 11/02/23 17:40 Freq: Status: Active Protocol: Document 02/26/24 16:25 [facility] (Rec: 02/26/24 17:04 [facility] [id number]) Physical Therapy Assessment Goals activity Short Term Goal (STG) Pt will be able to drive 1 hour w/o significant pain in back and leg. 12/18-has not been driving d/t hand surgery 12/06; last time was still painful prior to that. 01/09/24: pain with bus ride to [place] R>L leg. 02/11-min pain w/1 hour w/only back pain, no leg pain 02/21/24: out to [facility] and back no R adductor pain. STG Duration has not driven far but no pain w/30 min Dispatcher Tugboat Goal (LTG) Pt will be able to hike hills and uneven terrain w/o inc pain in back, leg or knee. 12/18-feel hills in RLE more ( mostly buttocks) more, downhill and flat ok; knees feel stronger 01/09/24: MET GOAL: no pain walking, slight hills & gravel , no pian up and down. Hasn't tried uneven terrain. LTG Duration achieved strength Short Term Goal (STG) Pt will be indep w/HEP STG Duration achieved advancing as able Dispatcher Tugboat Goal (LTG) Pt will score at least 3/5 on LPM in all planes and at least 4+/5 on all BLE MMT to show improved strength to improve ease w/typical mobility. 12/18-improved 01/09/24: improved progressing 4 to 4+/5 over all 02/11-mostly achieved-core weakness LTG Duration mostly achieved Assessment Summary Assessment At this time, most goals met and pt indep w/HEP.. Given cues for slowing down but otherwise performing well. She is DC to HEP w/dec symptoms at this time. Physical Therapy Plan Discharge Physical Therapy Discharge Reasons Goals Met
== END 2024-03-06 10:41 | disposition home or self-care (01) ==
LOC: PHYS 16:15
PROVIDERS: Family Provider Family Medicine; PCP Family Medicine; Referring Provider Family Medicine; Visit Provider Family Medicine
DX: M54.50 Low back pain, unspecified (principal); M25.559 Pain in unspecified hip; M25.561 Pain in right knee; R26.2 Difficulty in walking, not elsewhere classified; R29.3 Abnormal posture; R53.1 Weakness
CPT/HCPCS: 97010; 97110; 97112; 97140; 97162; 97530; 97535

== ENCOUNTER → 2024-03-22 10:34 | Outpatient (CLI) | payer OTHER, SELFPAY | PROVIDERS: Family Provider Family Medicine; PCP Family Medicine; Visit Provider Urology | DX: R30.0 Dysuria (principal); N39.0 Urinary tract infection, site not specified | CPT/HCPCS: 87077; 87086 ==

== ENCOUNTER → 2024-04-08 13:52 | Outpatient (CLI) | payer OTHER, SELFPAY ==
--- NOTE | 2024-04-08 13:53 | DI.RAD.S_ITS ---
PROCEDURE: XR LUMBAR SPINE 2-3V INDICATIONS: low back pain TECHNIQUE: 3 views of the lumbar spine were acquired. COMPARISON: [facility], , XR LUMBAR SPINE 2-3V, 05/05/2023, 12:33. FINDINGS: Diffuse osseous demineralization, which limits assessment for fractures and fracture acuity. Five non rib-bearing lumbar vertebrae are present. The vertebral body heights are preserved. The lumbar lordosis is preserved. Mild hypertrophy of the L3-L5 spinous processes. Moderate facet arthropathy at L3-L4, L4-L5, and L5-S1. The intervertebral disc heights are preserved. The visualized sacroiliac joints are intact. IMPRESSION: Moderate facet arthropathy at the lower lumbar levels without an acute radiographic abnormality. Dictated by: Lm Riley M.D. on 04/08/2024 at 16:33 Approved by: Lm Riley M.D. on 04/08/2024 at 16:37
--- NOTE | 2024-04-08 13:53 | DI.RAD.S_ITS ---
PROCEDURE: XR HIP W PEL IF DONE LENI MIN 4V INDICATIONS: bilateral hip pain TECHNIQUE: AP pelvis with lateral view(s) of the bilateral hip(s). COMPARISON: None. FINDINGS: No acute fracture or dislocation. Diffuse osseous demineralization. The hip joints are preserved. The sacroiliac joints are preserved. 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 Otherwise, no acute fracture or dislocation of the pelvis or hips. Dictated by: Lm Riley M.D. on 04/08/2024 at 16:27 Approved by: Lm Riley M.D. on 04/08/2024 at 16:29
== END ==
PROVIDERS: Family Provider Family Medicine; PCP Family Medicine; Referring Provider Family Medicine; Visit Provider Family Medicine
DX: M47.816 Spondylosis without myelopathy or radiculopathy, lumbar region (principal); M47.817 Spondylosis without myelopathy or radiculopathy, lumbosacral region; M19.09 Primary osteoarthritis, other specified site; M25.551 Pain in right hip; M25.552 Pain in left hip; M54.50 Low back pain, unspecified
CPT/HCPCS: 72100; 73522

== ENCOUNTER → 2024-07-06 09:35 | Outpatient (CLI) | payer OTHER, SELFPAY ==
--- NOTE | 2024-07-06 09:36 | DI.MG.S_ITS ---
MM screening mammo BI: 07/06/2024. BI-RADS: 1 CLINICAL: 63-year old female for bilateral screening mammogram. Tyrer-Cuzick lifetime risk of 7.5%. No personal or first-degree family history of breast cancer. Current reported family history of breast cancer: maternal grandmother. PRIOR EXAMS 05/08/2023, 05/05/2022, 04/01/2021, 03/31/2020, 02/28/2019, 01/25/2018. MAMMOGRAPHY TECHNIQUE: 2D and 3D (tomosynthesis) digital mammographic views obtained, with additional images as needed for full coverage. Current study was also evaluated with a Computer Aided Detection (CAD) system. DENSITY B. There are scattered areas of fibroglandular density. MAMMOGRAPHY FINDINGS Bilateral: No suspicious mass, asymmetry, microcalcification, or other abnormality seen. IMPRESSION: * No evidence of malignancy. RECOMMENDATIONS Bilateral * Annual screening mammography. OVERALL ASSESSMENT CATEGORY BI-RADS-1: Negative. The [employer] recommends annual screening mammography beginning at age 40 for women with average risk of breast cancer. ELECTRONICALLY SIGNED: John Stephenson M.D. on 07/08/2024 at 07:27:27 AM PT Interpreting Station ID: [id number]
== END ==
PROVIDERS: Family Provider Family Medicine; PCP Family Medicine; Referring Provider Family Medicine; Visit Provider Family Medicine
DX: Z12.31 Encounter for screening mammogram for malignant neoplasm of breast (principal); Z80.3 Family history of malignant neoplasm of breast
CPT/HCPCS: 77063; 77067

== ENCOUNTER → 2024-12-04 11:26 | Outpatient (CLI) | payer OTHER, SELFPAY ==
[2024-12-04 12:12] LABS: Alanine Aminotransferase 70 IU/L (<35); Albumin 4.5 g/dL (3.5-5.0); Albumin Globulin Ratio 1.7 (1.0-2.8); Alkaline Phosphatase 131 U/L (38-126); Blood Urea Nitrogen 30 mg/dL (7-17); Calcium 9.7 mg/dL (8.4-10.2); Carbon Dioxide 22 mmol/L (22-32); Chloride 106 mmol/L (98-107); Estimated Glomerular Filt Rate > 60 mL/min (>60); Globulin 2.7 g/dL (1.7-4.1); Glucose 95 mg/dL (70-99); Potassium 5.0 mmol/L (3.4-5.1); Sodium 135 mmol/L (137-145); Total Protein 7.2 g/dL (6.3-8.2)
[2024-12-04 12:13] LABS: HEMOLYSIS 73 (0-50)
== END ==
PROVIDERS: PCP Family Medicine; Referring Provider Family Medicine; Visit Provider Family Medicine
DX: M81.0 Age-related osteoporosis without current pathological fracture (principal); R74.8 Abnormal levels of other serum enzymes
CPT/HCPCS: 36415; 80053

== ENCOUNTER → 2025-01-24 14:18 | Outpatient (CLI) | payer OTHER, SELFPAY ==
--- NOTE | 2025-01-24 14:19 | DI.RAD.S_ITS ---
PROCEDURE: XR FOOT RT MIN 3V INDICATIONS: toe swelling, broken toe f/u TECHNIQUE: 3 views of the foot were acquired. COMPARISON: [facility], CR, XR FOOT RT MIN 3V, 09/20/2021, 9:58. FINDINGS: Bones: There is faint visualization of a fracture line involving the proximal shaft of the proximal phalanx of the 5th toe. The previously seen fracture of the distal aspect of the proximal phalanx of the 5th toe has healed. Soft tissues: Distal soft tissue swelling is seen. IMPRESSION: Faintly seen fracture involving the proximal aspect of the proximal phalanx of the 5th toe. Dictated by: Thomas Ryan M.D. on 01/25/2025 at 12:20 Approved by: Thomas Ryan M.D. on 01/25/2025 at 12:22
== END ==
LOC: RAD 14:19
PROVIDERS: PCP Family Medicine; Referring Provider Family Medicine; Visit Provider Family Medicine
DX: S92.511D Displaced fracture of proximal phalanx of right lesser toe(s), subsequent encounter for fracture with routine healing (principal); M79.89 Other specified soft tissue disorders
CPT/HCPCS: 73630